=== PATIENT | female | born 1960 | race Caucasian/White ===

== ENCOUNTER 2016-04-26 14:31 | Outpatient (CLI) ==
[2016-04-26 15:16] LABS: BASOPHILS # (AUTO) 0.1 K/uL (0-0.2); EOSINOPHILS # (AUTO) 0.6 K/ul (0.0-0.7); EOSINOPHILS % (AUTO) 9.1 % (0.0-7.0); HEMATOCRIT 34.4 % (37.0-47.0); HEMOGLOBIN 11.6 g/dl (12.0-16.0); IMMATURE GRANULOCYTE % (AUTO) 0.2 % (0.0-5.0); LYMPHOCYTES % (AUTO) 32.8 (10.0-50.0); MEAN CORPUSCULAR HGB CONC 33.7 (31.8-35.4); MEAN CORPUSCULAR VOLUME 97.7 fl (81.0-99.0); MONOCYTES # (AUTO) 0.5 K/uL (0.4-2.0); MONOCYTES % (AUTO) 7.7 (0-10); NEUTROPHILS % (AUTO) 49.2; PLATELET COUNT 281 10^3/uL (140-440); RED BLOOD COUNT 3.52 10^6/ul (4.20-5.40); WHITE BLOOD COUNT 6.13 K/ul (4.6-10.2)
[2016-04-26 15:37] LABS: ALBUMIN 3.7 g/dL (3.4-5.0); ALBUMIN/GLOBULIN RATIO 1.19; ANION GAP 12.5; BILIRUBIN,TOTAL 0.31 mg/dL (0.00-1.20); BUN/CREATININE RATIO 14.7; CREATININE 0.68 mg/dL (0.60-1.30); POTASSIUM 4.5 mmol/L (3.5-5.10); TOTAL PROTEIN 6.8 g/dL (6.4-8.2)
--- NOTE | 2016-04-26 15:39 | US ---
EXAM: Ultrasound right upper quadrant HISTORY: Right upper quadrant pain COMPARISON: 08/17/2010 TECHNIQUE: Limited ultrasound abdomen right upper quadrant was performed FINDINGS: Visualized portion pancreas appears normal. Portions of the pancreas obscured secondary bowel gas shadowing. Liver normal in size and echogenicity. Main portal vein patent with normal di rection of flow. Small gallbladder polyp and/or adherent sludge measuring 4 mm. There is gallblad charlette wall thickening with suggestion of pericholecystic fluid and/or edema. No visible gallstones. T echnologist reports there is a sonographic Simmons's sign. No biliary duct dilation with the common bile duct measuring 0.5 cm. Right kidney measures 10.0 cm in length without hydronephrosis. IMPRESSION: Gallbladder wall thickening with suggestion of pericholecystic fluid and/or edema. Colette hnologist reports there is a sonographic Simmons's sign. No cholelithiasis. Findings suggestive of acalculous cholecystitis. Small gallbladder polyp and/or adherent sludge suggested.
== END 2016-04-26 14:32 | disposition home or self-care (01) ==
LOC: RAD 14:31
PROVIDERS: ATTEND Nurse Practitioner Family
DX: R10.11 Right upper quadrant pain (principal); M54.5 Low back pain
CPT/HCPCS: 36415; 80053; 82150; 83690; 85025

== ENCOUNTER 2016-10-04 12:46 | Outpatient (CLI) ==
[2016-10-04 13:07] LABS: BASOPHILS # (AUTO) 0.1 K/uL (0-0.2); BASOPHILS % (AUTO) 1.7 % (0.0-3.0); EOSINOPHILS # (AUTO) 0.5 K/ul (0.0-0.7); EOSINOPHILS % (AUTO) 12.1 % (0.0-7.0); HEMATOCRIT 34.5 % (37.0-47.0); HEMOGLOBIN 11.9 g/dl (12.0-16.0); LYMPHOCYTES # (AUTO) 2.3 K/uL (0.60-3.4); LYMPHOCYTES % (AUTO) 55.5 (10.0-50.0); MEAN CORPUSCULAR HEMOGLOBIN 33.1 pg (27.0-31.0); MEAN CORPUSCULAR HGB CONC 34.5 (31.8-35.4); MEAN CORPUSCULAR VOLUME 96.1 fl (81.0-99.0); MONOCYTES # (AUTO) 0.7 K/uL (0.4-2.0); MONOCYTES % (AUTO) 16.4 (0-10); NEUTROPHILS # (AUTO) 0.6 K/ul (2.0-6.9); NEUTROPHILS % (AUTO) 14.3; PLATELET COUNT 299 10^3/uL (140-440); RED BLOOD COUNT 3.59 10^6/ul (4.20-5.40)
[2016-10-04 13:42] LABS: ALBUMIN 3.6 g/dL (3.4-5.0); ALBUMIN/GLOBULIN RATIO 1.24; ANION GAP 13.2; BILIRUBIN,TOTAL 0.27 mg/dL (0.00-1.20); BUN/CREATININE RATIO 14.92; CALCIUM 9.1 mg/dL (8.2-10.2); CHOL/HDL RATIO 2.2 (4.5-5.5); CREATININE 0.67 mg/dL (0.60-1.30); POTASSIUM 4.2 mmol/L (3.5-5.10); TOTAL PROTEIN 6.5 g/dL (6.4-8.2)
== END 2016-10-04 12:47 | disposition home or self-care (01) ==
LOC: LAB 12:46
PROVIDERS: ATTEND Nurse Practitioner Family
DX: E78.5 Hyperlipidemia, unspecified (principal); I10 Essential (primary) hypertension
CPT/HCPCS: 36415; 80053; 80061; 84443; 85025

== ENCOUNTER 2016-11-14 15:24 | Outpatient (CLI) ==
[2016-11-14 15:32] LABS: BASOPHILS # (AUTO) 0.1 K/uL (0-0.2); BASOPHILS % (AUTO) 1.3 % (0.0-3.0); EOSINOPHILS # (AUTO) 0.6 K/ul (0.0-0.7); EOSINOPHILS % (AUTO) 10.2 % (0.0-7.0); HEMATOCRIT 38.5 % (37.0-47.0); IMMATURE GRANULOCYTE % (AUTO) 0.3 % (0.0-5.0); IMMATURE RETIC FRACTION 9.1; LYMPHOCYTES % (AUTO) 31.7 (10.0-50.0); MEAN CORPUSCULAR HEMOGLOBIN 33.2 pg (27.0-31.0); MEAN CORPUSCULAR HGB CONC 33.8 (31.8-35.4); MEAN CORPUSCULAR VOLUME 98.5 fl (81.0-99.0); MONOCYTES # (AUTO) 0.5 K/uL (0.4-2.0); MONOCYTES % (AUTO) 8.1 (0-10); NEUTROPHILS % (AUTO) 48.4; PLATELET COUNT 339 10^3/uL (140-440); RED BLOOD COUNT 3.91 10^6/ul (4.20-5.40); RETICULOCYTE % 1.55 %; WHITE BLOOD COUNT 6.15 K/ul (4.6-10.2)
[2016-11-14 16:26] LABS: FERRITIN 155.76 ng/mL (4.63-204.00); FOLATE > 20.0 ng/mL (3.1-20.5); IRON 122 ug/dL (50-170); TOTAL IRON BINDING CAPACITY 326 ug/dL (240-450)
== END 2016-11-14 15:25 | disposition home or self-care (01) ==
LOC: LAB 15:24
PROVIDERS: ATTEND Nurse Practitioner Family
DX: R89.9 Unspecified abnormal finding in specimens from other organs, systems and tissues (principal); Z86.2 Personal history of diseases of the blood and blood-forming organs and certain disorders involving the immune mechanism
CPT/HCPCS: 36415; 82607; 82728; 82746; 83540; 83550; 84466; 85025; 85045

== ENCOUNTER 2017-03-23 14:13 | Outpatient (CLI) ==
--- NOTE | 2017-03-23 14:40 | DI ---
EXAM: Three views of the lumbar spine. History: Lower back trauma. Comparison: Lumbar spine radiograph 04/26/2016 Findings: Cholecystectomy clips. Atherosclerotic vascular calcifications. No change in the nonspec ific left pelvic calcification. No acute fracture. Minimal 2 mm anterolisthesis of L4 on L5 not sig nificantly changed compared to the prior study. No significant interval change in the multilevel deg enerative disc space narrowing which is moderate at T12-L1 and mild to moderate elsewhere. Impression: 1. No acute osseous abnormality of the lumbar spine. 2. Minimal anterolisthesis of L4 on L5. 3. Degenerative disc disease.
--- NOTE | 2017-03-23 14:49 | DI ---
EXAM: Three views of the sacrum and coccyx HISTORY: Fall. COMPARISON: Lumbar spine x-rays same day FINDINGS: The sacrum is unremarkable. There is no cortical disruption identified. Lateral view demo nstrates mild angulation of the coccyx with no definitive fracture. Soft tissues are unremarkable. IMPRESSION: No acute abnormality or displaced fracture of the sacrum or coccyx.
== END 2017-03-23 14:14 | disposition home or self-care (01) ==
LOC: RAD 14:13
PROVIDERS: ATTEND Nurse Practitioner Family
DX: S39.92XA Unspecified injury of lower back, initial encounter (principal); M54.41 Lumbago with sciatica, right side; W19.XXXA Unspecified fall, initial encounter

== ENCOUNTER 2017-04-07 14:06 | Outpatient (CLI) | END 2017-04-07 14:07 | disposition home or self-care (01) | LOC: RHC-LAB 14:06 | PROVIDERS: ATTEND Nurse Practitioner Family | DX: E78.5 Hyperlipidemia, unspecified (principal); I10 Essential (primary) hypertension | CPT/HCPCS: 36415; 80053; 80061; 85025 ==

== ENCOUNTER 2017-04-10 11:59 | Outpatient (CLI) ==
--- NOTE | 2017-04-10 16:26 | MRI ---
EXAM: Lumbar spine MRI without contrast. HISTORY: Back pain. COMPARISON: Lumbar spine radiographs 03/23/2017. TECHNIQUE: Multiplanar, multisequence MR images were acquired of the lumbar spine without contrast. FINDINGS: Conus medullaris ends at L1 and has normal signal intensity. 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 Five non-rib bearing lumbar vertebra are present. There is mild thoracolumbar scoliosis, convex left at L1-2 and convex right at L3-4. There is a trac e retrolisthesis of L1 on L2, 1.5 mm retrolisthesis of L2 on L3 and L3 on L4, 1.5 mm anterolisthesis of L4 on L5 and 2 mm retrolisthesis of L5 on S1. The superior plate of S1 is smaller than the inferi or endplate of L5. The lumbar vertebra are normal in height and intrinsic bone marrow signal. There is ventral spondylosis with reactive bright STIR signal edema along the anterior endplates at T12-L1 and mild moderate disc space narrowing that is greatest anteriorly with endplate irregularities and s mall chronic Schmorl's nodes. Ventral spondylosis is present in the lumbar spine and there is modera te disc space narrowing and mild endplate irregularity at L2-3 with minor modic type 2 endplate yanez es. There is mild to moderate disc space narrowing at L3-4 that is greatest posteriorly and left lat erally and mild left lateral disc space narrowing at L4-5. The partially visualized liver, spleen and both kidneys are unremarkable. T11-12: There is a minor spondylotic disc bulge and a moderate left paracentral disc extrusion that indents the left anterior thoracic cord which is displaced slightly posteriorly and to the right with out edema. There is mild central canal stenosis. T12-L1: There is a mild spondylotic disc bulge and and a large central and bilateral paracentral dis c extrusion with 1.2 cm proximal migration. This causes mild central canal stenosis. AP diameter of the thecal sac is 9.3 mm. L1-2: There is a small posterior disc bulge without central canal stenosis and mild bilateral facet arthropathy and ligamentum flavum hypertrophy. L2-3: There is a mild diffuse spondylotic disc bulge and mild bilateral facet and ligamentum flavum hypertrophy. There is mild central canal stenosis and minor bilateral foraminal stenosis, greater on the left. AP diameter of the thecal sac is 8.4 mm. L3-4: There is a minor diffuse disc bulge and moderate superimposed broad-based central disc protrus ion that extends from the left lateral recess to the right lateral recess. This effaces the ventral thecal sac. Mild bilateral hypertrophic facet arthropathy and ligamentum flavum hypertrophy is prese nt and there is a tiny left facet effusion. Prominent dorsal epidural fat is noted and there is mild central canal stenosis and mild left neural foraminal stenosis. AP diameter of the thecal sac is 8. 7 mm. L4-5: There is anterolisthesis of L4 on L5 and there is a diffuse disc bulge and moderate bilateral hypertrophic facet arthropathy and ligamentum flavum hypertrophy with moderate left and small right f acet effusions and a 3.5 mm AP by 6.2 mm TX by 9 mm cc synovial cyst along the anteromedial right fac et joint. This effaces the right lateral recess and posterolateral thecal sac bilaterally. There is mildly prominent dorsal epidural fat. These findings cause mild to moderate central canal stenosis and mild left and minor right foraminal stenosis. AP diameter of the thecal sac is 6.8 mm. There is faint mild bright STIR signal edema around both facet joints and there are small synovial cysts mohini g the posterior inferior L4-5 facet joints bilaterally. These findings raise the possibility of a fa cet arthropathy or increased stress. L5-S1: There is retrolisthesis of L5 and on S1. There is a minor posterior disc bulge without centr al canal stenosis. Mild right and minor left facet arthropathy and mild ligamentum flavum hypertroph y is present without foraminal stenosis. IMPRESSION: 1. Mild to moderate lower thoracic lumbar degenerative spondylosis with mild L2-3 and L3-4 and mild to moderate L4-5 central canal stenosis. 2. Mild thoracolumbar scoliosis, convex left at L1-2 and convex right and L3-4. 3. Moderate left paracentral disc extrusion T11-12 that indents the left cord without edema and caus es mild spinal stenosis. 4. Moderate broad-based central disc protrusion L3-4. 5. 1.5 mm degenerative anterolisthesis L4 on L5 due to moderate hypertrophic facet arthropathy with moderate left and small right facet effusions and faint bright STIR signal edema. This may be due to an underlying inflammatory arthritis or increased stress.
== END 2017-04-10 12:00 | disposition home or self-care (01) ==
LOC: RAD 11:59
PROVIDERS: ATTEND Nurse Practitioner Family
DX: M54.9 Dorsalgia, unspecified (principal); G89.29 Other chronic pain; Z91.81 History of falling

== ENCOUNTER 2017-05-12 11:55 | Outpatient (CLI) | END 2017-05-12 11:56 | disposition home or self-care (01) | LOC: RHC-LAB 11:55 | PROVIDERS: ATTEND Nurse Practitioner Family | DX: R51 Headache (principal); H10.9 Unspecified conjunctivitis | CPT/HCPCS: 36415; 80053; 85025; 85651 ==

== ENCOUNTER 2017-09-22 13:06 | Outpatient (CLI) | END 2017-09-22 13:07 | disposition home or self-care (01) | LOC: RHC-LAB 13:06 | PROVIDERS: ATTEND Nurse Practitioner Family | DX: S81.801D Unspecified open wound, right lower leg, subsequent encounter (principal) | CPT/HCPCS: 87070; 87186 ==

== ENCOUNTER 2017-10-26 14:12 | Outpatient (CLI) | END 2017-10-26 14:13 | disposition home or self-care (01) | LOC: FCC-LAB 14:12 | PROVIDERS: ATTEND Family Medicine | DX: R74.8 Abnormal levels of other serum enzymes (principal); E78.5 Hyperlipidemia, unspecified | CPT/HCPCS: 36415; 80074 ==

== ENCOUNTER 2020-11-12 08:29 | Inpatient (IN) ==
[2020-11-12 08:35] VITALS: BMI 23.1
--- NOTE | 2020-11-12 08:57 | ED.PDOC ---
General ED Provider: Dr. LILIANA LACKEY Chief Complaint: Respiratory Complaint Stated Complaint: Cough, congestion, dyspnea, body aches, myalgias, arthralgias and headache -onset 3 days; Exposed to COVID 5 days ago. Undergoing Chemo tx for lung malignancy Dr Espino at [facility] cancer tx Time Seen by Provider: 11/12/20 08:55 Mode of Arrival: Wheelchair Information Source: Patient Exam Limitations: No limitations Primary Care Provider: PERLA OLIVERA APRN Nursing and Triage Documentation Reviewed and Agree: Yes Does patient meet sepsis criteria?: No System Inflammatory Response Syndrome: Not Applicable Sepsis Protocol: For patient's 13 years and over: Temp is 96.8 and below OR 101 and greater Pulse >90 BPM Resp >20/minute Acutely Altered Mental Status Are patient's symptoms suggestive of a new infection, such as: -Pneumonia -Skin, Soft Tissue -Endocarditis -UTI -Bone, Joint Infection -Implantable Device -Acute Abdominal Infection -Wound Infection -Meningitis -Blood Stream Catheter Infection -Unknown Respiratory Complaint Exam Shortness of Air Complaint/Exam Onset/Duration: 2 days Symptoms Are: Still present and Worse Timing: Intermittent Initial Severity: Moderate Current Severity: Moderate Character: Reports Dyspnea at rest and Dyspnea on exertion Aggravating: Reports Movement, Deep breaths and Recumbent position Alleviating: Reports Bronchodilators, Oxygen and Upright position Associated Signs and Symptoms: Reports Wheezing, Chest pain with cough, Chills and Nasal congestion; Denies Fever Related History: Denies Similar episode History of Healthcare-Acquired Pneumonia: No Pulmonary Embolism Risk Factors: Reports Malignancy and Bedrest Cardiac Risk Factors: Reports None Pseudomonas Risk Factors: Reports None Tuberculosis Risk Factors: Reports None Home Oxygen Use: Yes Recent Stress Test: No Recent Echo/LV Function: No Respiratory Distress: None Stridor Present: No Tracheal Deviation: No Subcutaneous Emphysema: No Accessory Muscle Use: No Retractions: Not Present Diminished Breath Sounds: Yes Prolonged Expiratory Phase: No Unable to Speak Full Sentences: Yes Fatigue: Yes Leg Swelling: No Yolie's Sign Present: No Grunting Respirations: No Differential Diagnoses: Chest Wall Pain, COPD Exacerbation, Pneumonia, Pulmonary Embolism and SARS Quality Indicator For Non-Traumatic Chest Pain/Syncope: EKG Performed Quality Indicators For Pneumonia/CAP: Blood Cultures-SCU admit, Antibiotics in 6hr-admit, SpO2 assessed, Empiric Antibiotic Rx, Vital signs and Mental status assessed Related Surgical History: Reports None Review of Systems Review Of Systems Constitutional: Reports Malaise and Weakness Eyes: Reports No symptoms Ears, Nose, Mouth, Throat: Reports No symptoms Respiratory: Reports Cough, Short of air and Wheezing Cardiac: Reports No symptoms GI: Reports No symptoms : Reports No symptoms Musculoskeletal: Reports No symptoms Skin: Reports No symptoms Neurological: Reports Anxiety; Denies Cognitive dysfunction, Headache, Numbness, [place] seizures or Tonic-Clonic seizures Endocrine: Reports No symptoms Hematologic/Lymphatic: Reports No symptoms All Other Systems: Reviewed and Negative [facility] Medical History Anemia Asthma Chronic obstructive pulmonary disease Defect of endplate of vertebra Depression Fatigue Folliculitis Gall bladder disease Hyperlipidemia Hypertension Hypothyroidism Influenza vaccination administered at current visit Lung cancer Nausea and vomiting Need for vaccination against Streptococcus pneumoniae using pneumococcal conjugate vaccine 13 On antineoplastic chemotherapy Osteoporosis Stage 4 lung cancer Family History (Updated 11/12/20 @ 16:14 by MCKINLEY SAAB RN) Other No known health problems Social History Smoking and tobacco status: Former smoker Tobacco: How many years used: 17 Second hand smoke exposure: Yes Alcohol intake: current Substance use type: does not use Eliza/bahai: voodoo Special eliza needs: No Agree to transfusion: Yes Adopted: No Caregiver/support person: Yes Household members: spouse Housing: house Lives independently: Yes Highest education level completed: 9th grade Financial difficulty paying for basics: not applicable service: No Current occupational status: unemployed Current occupational exposures/hazards: No Pets and animals: No Leisure activites: fishing History of recent travel: No Do you think of yourself as: straight/heterosexual Current gender identity: female Seatbelt use: always Helmet use: No Drives intoxicated or rides with intoxicated patrol driver: No Water heater temperature set < 120 degrees: Yes Working smoke detector in home: Yes Fire extinguisher in home: Yes Carbon monoxide detector in home: No Firearms in home: Yes Firearms unloaded and locked: Yes Surgical History gall bladder History of tubal ligation Status post appendectomy Status post cholecystectomy (04/27/16) Female Reproductive History Menstrual Hx Hysterectomy: No Hx Tubal Ligation: No Physical Exam Physical Exam Appearance: Reports Ill-appearing and Thin Ill-appearing: Moderate Pain Distress: Moderate Eyes: Reports MILLA, EOMI, Conjunctiva clear and Conjunctiva pale ENT: Reports Ears normal, Nose normal and Oropharynx normal Neck: Supple Respiratory: Reports Airway patent, Breath sounds diminished, Rhonchi and Wheezes Cardiovascular: Reports RRR, Pulses normal, No rub and No murmur GI/: Reports Soft, Nontender, No masses, Bowel sounds normal, No Organomegaly and Tender Musculoskeletal: Reports Normal strength, ROM intact, No edema and No calf tenderness Skin: Reports Warm, Dry and Normal color Neurological: Reports Sensation intact, Motor intact, Cranial nerves intact, Alert and Oriented Psychiatric: Reports Affect appropriate and Anxious Interpretation Radiology Interpretation Radiology Interpretation By: Radiologist Exam Interpreted: Portable CXR ( Tiny left pleural effusion. No definite consolidated pneumonia. If symptoms persist, consider follow up with full inspiration, standing two-view chest radiography using PA and lateral technique.) and CT Scan (New scattered and worsening patchy ground-glass opacities and both lungs. The left upper lobe ground-glass pulmonary nodule may be postinflammatory, but follow-up CT in 3-6 months is recommended. 2. Unchanged medial left upper lobe mass. 3. Unchanged emphysema.) EKG Interpretation Time of EKG #1: 09:18 Rate: Normal Rhythm: Sinus Ectopy: None ST Segment: Other (Non specf ST-T WAVE CHANGES) Interpretation: NO ACUTE FINDINGS Physician Notification Case Discussed Physician Notified: Dr Maty Lilly(out of town-call professional nursing tutor physician Time of Notification: 12:33 Physician Notified: Dr Buck Cnao( available at 2:22 Pm) Time of Notification: 12:59 Comments: No need to worry about ANC unless Septic. Discussed tx plan of admission Definitive tx(Remdesivir, Steroids, etc) Call back if additional iform needed Critical Care Note Critical Care Note Total Critical Care Time (mins): 60 Course Course Hematology/Chemistry: 11/12/20 08:20 11/12/20 08:20 Orders, Labs, Meds: Lab Review 11/12/20 11/12/20 11/12/20 08:20 08:20 08:20 WBC 1.51 L* RBC 3.77 L Hgb 12.3 Hct 36.8 L MCV 97.6 MCH 32.6 H MCHC 33.4 RDW Coeff of Atylor 12.0 Plt Count 150 Neutrophils % (Manual) 26.0 L Band Neutrophils % 2.0 Lymphocytes % (Manual) 62.0 H Monocytes % (Manual) 10.0 Anisocytosis Not Reportable Puncture Site Base Excess O2 Saturation ABG pH ABG pCO2 ABG pO2 ABG HCO3 ABG Total CO2 William Test Hemoglobin Oxyhemoglobin Carboxyhemoglobin Total Hemoglobin O2 Delivery Device Oxygen Liter Flow FiO2 % Sodium 131.6 L Potassium 3.77 Chloride 98.2 Carbon Dioxide 23.0 Anion Gap 14.17 BUN 20.0 H Creatinine 0.75 Estimated GFR (MDRD) 79.00 BUN/Creatinine Ratio 26.66 Glucose 138.0 H Lactic Acid Calcium 8.61 Magnesium 1.82 Total Bilirubin 0.46 AST 68.5 H ALT 45.6 H Alkaline Phosphatase 89.1 Total Protein 7.09 Albumin 4.06 Globulin 3.03 Albumin/Globulin Ratio 1.33 Lipase 171.3 Procalcitonin D-Dimer 1188.37 H Urine Color Urine Clarity Urine pH Ur Specific Unity Urine Protein Urine Glucose (UA) Urine Ketones Urine Blood Urine Nitrite Urine Bilirubin Urine Urobilinogen Ur Leukocyte Esterase Urine Microscopic RBC Urine Microscopic WBC Ur Squamous Epith Cells Ur Renal Epithelial Cell Urine Bacteria Adenovirus (PCR) B. pertussis DNA (PCR) B.parapertussis DNA PCR C. pneumoniae DNA (PCR) Coronavirus OC43 (PCR) Coronavirus HKU1 (PCR) Coronavirus 229E (PCR) Coronavirus NL63 (PCR) Human Metapneumovir PCR Influenza Type A (PCR) Influenza B (RT-PCR) M. pneumoniae (PCR) Parainfluenza 1 (PCR) Parainfluenza 2 (PCR) Parainfluenza 3 (PCR) Parainfluenza 4 (PCR) RSV (PCR) Entero/Rhino (PCR) SARS-CoV-2 (PCR) 11/12/20 11/12/20 11/12/20 08:20 08:20 09:28 WBC RBC Hgb Hct MCV MCH MCHC RDW Coeff of Taylor Plt Count Neutrophils % (Manual) Band Neutrophils % Lymphocytes % (Manual) Monocytes % (Manual) Anisocytosis Puncture Site Base Excess O2 Saturation ABG pH ABG pCO2 ABG pO2 ABG HCO3 ABG Total CO2 William Test Hemoglobin Oxyhemoglobin Carboxyhemoglobin Total Hemoglobin O2 Delivery Device Oxygen Liter Flow FiO2 % Sodium Potassium Chloride Carbon Dioxide Anion Gap BUN Creatinine Estimated GFR (MDRD) BUN/Creatinine Ratio Glucose Lactic Acid 1.41 Calcium Magnesium Total Bilirubin AST ALT Alkaline Phosphatase Total Protein Albumin Globulin Albumin/Globulin Ratio Lipase Procalcitonin < 0.05 D-Dimer Urine Color Urine Clarity Urine pH Ur Specific Unity Urine Protein Urine Glucose (UA) Urine Ketones Urine Blood Urine Nitrite Urine Bilirubin Urine Urobilinogen Ur Leukocyte Esterase Urine Microscopic RBC Urine Microscopic WBC Ur Squamous Epith Cells Ur Renal Epithelial Cell Urine Bacteria Adenovirus (PCR) Not detected B. pertussis DNA (PCR) Not detected B.parapertussis DNA PCR Not detected C. pneumoniae DNA (PCR) Not detected Coronavirus OC43 (PCR) Not detected Coronavirus HKU1 (PCR) Not detected Coronavirus 229E (PCR) Not detected Coronavirus NL63 (PCR) Not detected Human Metapneumovir PCR Not detected Influenza Type A (PCR) Not detected Influenza B (RT-PCR) Not detected M. pneumoniae (PCR) Not detected Parainfluenza 1 (PCR) Not detected Parainfluenza 2 (PCR) Not detected Parainfluenza 3 (PCR) Not detected Parainfluenza 4 (PCR) Not detected RSV (PCR) Not detected Entero/Rhino (PCR) Not detected SARS-CoV-2 (PCR) Detected H 11/12/20 11/12/20 09:38 10:29 WBC RBC Hgb Hct MCV MCH MCHC RDW Coeff of Taylor Plt Count Neutrophils % (Manual) Band Neutrophils % Lymphocytes % (Manual) Monocytes % (Manual) Anisocytosis Puncture Site Rrad Base Excess -1.2 O2 Saturation 95.7 ABG pH 7.48 H ABG pCO2 30.0 L ABG pO2 74.0 L ABG HCO3 22.3 ABG Total CO2 23.2 William Test + Hemoglobin 0.8 Oxyhemoglobin 95.2 Carboxyhemoglobin 1.5 Total Hemoglobin 11.5 L O2 Delivery Device Cannula Oxygen Liter Flow 2.00 FiO2 % 28.0 Sodium Potassium Chloride Carbon Dioxide Anion Gap BUN Creatinine Estimated GFR (MDRD) BUN/Creatinine Ratio Glucose Lactic Acid Calcium Magnesium Total Bilirubin AST ALT Alkaline Phosphatase Total Protein Albumin Globulin Albumin/Globulin Ratio Lipase Procalcitonin D-Dimer Urine Color Yellow Urine Clarity Clear Urine pH 7.0 Ur Specific Unity 1.015 Urine Protein 1+ H Urine Glucose (UA) Negative Urine Ketones Negative Urine Blood Trace-intact H Urine Nitrite Negative Urine Bilirubin Negative Urine Urobilinogen 0.2 Ur Leukocyte Esterase Trace H Urine Microscopic RBC 0-2 Urine Microscopic WBC 2-5 Ur Squamous Epith Cells 2-5 Ur Renal Epithelial Cell 2-5 Urine Bacteria 1+ Adenovirus (PCR) B. pertussis DNA (PCR) B.parapertussis DNA PCR C. pneumoniae DNA (PCR) Coronavirus OC43 (PCR) Coronavirus HKU1 (PCR) Coronavirus 229E (PCR) Coronavirus NL63 (PCR) Human Metapneumovir PCR Influenza Type A (PCR) Influenza B (RT-PCR) M. pneumoniae (PCR) Parainfluenza 1 (PCR) Parainfluenza 2 (PCR) Parainfluenza 3 (PCR) Parainfluenza 4 (PCR) RSV (PCR) Entero/Rhino (PCR) SARS-CoV-2 (PCR) Orders Category Date Time Status ABG DRAW REQUEST Stat CARDIO 11/12/20 08:57 Completed EKG-(ED ONLY) Stat CARDIO 11/12/20 08:58 Completed METERED DOSE INHALATION Routine CARDIO 11/12/20 10:08 Completed OXYGEN Routine CARDIO 11/12/20 08:58 Active NPO REMINDER: IMAGING ONCE CARE 11/12/20 11:21 Active IV [ED IV/MEDIPORT/POWERPORT] .ONCE EMERGENCY 11/12/20 08:58 Active ABG COOX Stat LAB 11/12/20 09:38 Completed BLOOD CULTURE (ED ONLY) Stat LAB 11/12/20 09:28 Received CBC W/ AUTO DIFF Stat LAB 11/12/20 08:20 Completed CMP [COMPREHENSIVE METABOLIC PANEL] Stat LAB 11/12/20 08:20 Completed D-DIMER Stat LAB 11/12/20 08:20 Completed HEPATITIS PANEL, ACUTE Stat LAB 11/12/20 08:20 Received LACTIC ACID Stat LAB 11/12/20 09:28 Completed LIPASE Stat LAB 11/12/20 08:20 Completed MAGNESIUM Stat LAB 11/12/20 08:20 Completed MANUAL DIFFERENTIAL Stat LAB 11/12/20 08:20 Completed PROCALCITONIN Stat LAB 11/12/20 08:20 Completed RESPIRATORY PANEL 2.1 (PCR) Stat LAB 11/12/20 08:20 Completed SPUTUM CULTURE Stat LAB 11/12/20 09:00 Uncollected UA [URINALYSIS C & S IF INDICATED] Stat LAB 11/12/20 10:29 Completed URINE CULTURE Stat LAB 11/12/20 10:29 Received 0.9 % Sodium Chloride [Saline Flush] MEDS 11/12/20 08:57 Active 1 syr IVF PRN PRN Acetaminophen [Tylenol] MEDS 11/12/20 11:29 Discontinued 650 mg PO ONCE STA Albuterol Inhaler(with Spacer) [Ventolin Hfa (Per Puff- MEDS 11/12/20 10:08 Discontinued with Spacer)] 2 puff IH ONCE ONE Sodium Chloride 0.9% [Sodium Chloride] 1,000 ml MEDS 11/12/20 09:01 Discontinued IV BOLUS CHEST, 1V AP ONLY Stat RADS 11/12/20 08:[address] CHEST PE PROTOCOL Stat RADS 11/12/20 11:21 Completed Medications Generic Name Dose Route Start Last Admin Trade Name Freq PRN Reason Stop Dose Admin Acetaminophen 650 mg 11/12/20 16:22 11/12/20 16:47 Acetaminophen 325 Mg Tablet PO 650 mg Q4H PRN Administration Headache Albuterol Sulfate 2 puff 11/12/20 20:00 Albuterol Sulfate (Ventolin Hfa) 18 Gm 1 Puff With Spacer IH RTTID CAROLA Alprazolam 0.5 mg 11/12/20 16:04 Alprazolam 0.5 Mg Tablet PO BEDTIME PRN ANXIETY Amlodipine Besylate 10 mg 11/13/20 09:00 Amlodipine Besylate 5 Mg Tablet PO DAILY CAROLA Atropine Sulfate 0.5 mg 11/12/20 16:22 Atropine Sulfate Inj 1 Mg/10 Ml Disp.Syrin IVP ONCE PRN Symptomatic Bradycardia Azithromycin 500 mg 11/12/20 17:00 11/12/20 18:06 Azithromycin 250 Mg Tablet PO 11/15/20 16:59 500 mg DAILY CAROLA Administration Benazepril HCl 40 mg 11/13/20 09:00 Benazepril Hcl 10 Mg Tablet PO DAILY [facility] Budesonide/Formoterol Fumarate 2 puff 11/12/20 21:00 Budesonide/Formoterol Fumarate 160/4.5 Mcg Inhaler IH BID [facility]OL[facility] Cholecalciferol 5,000 unit 11/12/20 15:00 11/12/20 15:16 Cholecalciferol (Vitamin D3) 1,000 Unit (25 Mcg) Tablet PO 5,000 unit DAILY CAROLA Administration Dexamethasone Sodium Phosphate 6 mg 11/13/20 09:00 Dexamethasone Sod Phos 10 Mg/Ml Inj IVP DAILY [facility] Famotidine 40 mg 11/12/20 17:00 11/12/20 16:37 Famotidine 20 Mg Tablet PO 40 mg BIDAC CAROLA Administration Ferrous Sulfate 324 mg 11/12/20 21:00 Ferrous Sulfate 324 Mg Tablet.Dr PO BID [facility] Folic Acid 1 mg 11/13/20 09:00 Folic Acid 1 Mg Tablet PO DAILY [facility] Hydroxyzine HCl 25 mg 11/12/20 16:04 Hydroxyzine Hcl 25 Mg Tablet PO QID PRN ITCHING REMDESIVIR SOLUTION 100 mg/ 270 mls @ 270 mls/hr 11/13/20 12:00 Sodium Chloride IV 11/16/20 14:00 DAILY@1200 [facility] CEFTRIAXONE/D5W 1 GM PREMIX 1 gm in 50 mls @ 75 mls/hr 11/12/20 17:00 11/12/20 17:12 Rocephin 1 Gm/50 Ml D5w IV 11/15/20 16:59 75 mls/hr DAILY [facility] Administration Loratadine 10 mg 11/12/20 21:00 Loratadine 10 Mg Tablet PO BEDTIME [facility] Metoprolol Succinate 50 mg 11/12/20 21:00 Metoprolol Succinate 50 Mg Tab.Er.24h PO BID [facility] Multivitamins 1 tab 11/13/20 09:00 Multivitamin 1 Tab PO DAILY [facility] Nitroglycerin 0.4 mg 11/12/20 16:22 Nitroglycerin 0.4 Mg Tab.Subl SL Q5MIN X 3 DOSES PRN Chest Pain Pravastatin Sodium 40 mg 11/13/20 09:00 Pravastatin Sodium 40 Mg Tablet PO DAILY [facility] Prochlorperazine Maleate 10 mg 11/12/20 16:04 11/12/20 16:37 Prochlorperazine Maleate 10 Mg Tablet PO 10 mg Q6H PRN Administration DIZZINESS/NAUSEA Sodium Chloride 1 syr 11/12/20 08:57 11/12/20 09:06 0.9% Sodium Chloride 10 Ml Disp.Syrin IVF 1 syr PRN PRN Administration To flush IV Sodium Chloride 1 syr 11/12/20 21:00 0.9% Sodium Chloride 10 Ml Disp.Syrin IVF Q8HR [facility] Triamcinolone Acetonide 1 applic 11/13/20 09:00 Triamcinolone Acetonide 80 Gm Cream TP DAILY [facility] Venlafaxine HCl 75 mg 10/01/21 09:00 Venlafaxine Hcl 75 Mg Cap.Er.24h PO DAILY [facility] Zinc Sulfate 220 mg 11/12/20 14:45 11/12/20 15:17 Zinc Sulfate 220 Mg Capsule PO 220 mg DAILY [facility] Administration Discontinued Medications Generic Name Dose Route Start Last Admin Trade Name Phuq PRN Reason Stop Dose Admin Acetaminophen 650 mg 11/12/20 11:29 11/12/20 11:34 Acetaminophen 325 Mg Tablet PO 11/12/20 11:30 650 mg ONCE STA Administration Albuterol Sulfate 2 puff 11/12/20 10:08 11/12/20 10:16 Albuterol Sulfate (Ventolin Hfa) 18 Gm 1 Puff With Spacer IH 11/12/20 10:09 2 puff ONCE ONE Administration Albuterol Sulfate 2 puff 11/12/20 15:00 Albuterol Sulfate (Ventolin Hfa) 18 Gm 1 Puff With Spacer IH TID [facility] Sodium Chloride 1,000 mls @ 1,000 mls/hr 11/12/20 09:01 11/12/20 09:05 Sodium Chloride IV 11/12/20 10:00 1,000 mls/hr BOLUS STA Administration REMDESIVIR SOLUTION 200 mg/ 290 mls @ 145 mls/hr 11/12/20 14:42 11/12/20 18:05 Sodium Chloride IV 11/12/20 16:41 145 mls/hr ONCE ONE Administration Venlafaxine HCl 75 mg 11/14/20 09:00 Venlafaxine Hcl 75 Mg Cap.Er.24h PO EVERY OTHER DAY [facility] Vital Signs: Temp Pulse Resp BP Pulse Ox 11/12/20 12:31 108 H 20 166/98 H 98 11/12/20 09:41 100.3 F H 111 H 20 179/94 H 95 11/12/20 09:24 111 H 98 11/12/20 08:36 100.7 F H 11/12/20 08:30 100.6 F H 116 H 24 168/116 H 96 Discharge Plan Discharge Patient Disposition: ADMITTED INPATIENT Discharge Problem: Stage 4 malignant neoplasm of lung, COVID-19 ED Provider: LILIANA LACKEY Condition: Stable Physician Progress Note: []
[2020-11-12] MEDS ORDERED: SODIUM CHLORIDE 1,000 ML IV STA (09:01)
[2020-11-12 09:11] LABS: BORDETELLA PARAPERTUSSIS (PCR) NOT DETECTED (NOT DETECT); BORDETELLA PERTUSSIS (PCR) NOT DETECTED (NOT DETECT); CHLAMYDIA PNEUMONIAE (PCR) NOT DETECTED (NOT DETECT); CORONAVIRUS 229E (PCR) NOT DETECTED (NOT DETECT); CORONAVIRUS HKU1 (PCR) NOT DETECTED (NOT DETECT); CORONAVIRUS NL63 (PCR) NOT DETECTED (NOT DETECT); CORONAVIRUS OC43 (PCR) NOT DETECTED (NOT DETECT); HUMAN METAPNEUMOVIRUS (PCR) NOT DETECTED (NOT DETECT); HUMAN RHINOVIRUS/ENTEROV (PCR) NOT DETECTED (NOT DETECT); INFLUENZA B (PCR) NOT DETECTED (NOT DETECT); MYCOPLASMA PNEUMONIAE (PCR) NOT DETECTED (NOT DETECT); PARAINFLUENZA VIRUS 1 (PCR) NOT DETECTED (NOT DETECT); PARAINFLUENZA VIRUS 2 (PCR) NOT DETECTED (NOT DETECT); PARAINFLUENZA VIRUS 3 (PCR) NOT DETECTED (NOT DETECT); PARAINFLUENZA VIRUS 4 (PCR) NOT DETECTED (NOT DETECT); RESPIRATORY SYNCYTIAL V (PCR) NOT DETECTED (NOT DETECT)
[2020-11-12 09:16] LABS: HEMATOCRIT 36.8 % (37.0-47.0); HEMOGLOBIN 12.3 g/dl (12.0-16.0); MEAN CORPUSCULAR HEMOGLOBIN 32.6 pg (27.0-31.0); MEAN CORPUSCULAR HGB CONC 33.4 (31.8-35.4); MEAN CORPUSCULAR VOLUME 97.6 fl (81.0-99.0); PLATELET COUNT 150 10^3/uL (140-440); RED BLOOD COUNT 3.77 10^6/ul (4.20-5.40)
[2020-11-12 09:19] LABS: ALANINE AMINOTRANSFERASE 45.6 U/L (0-35); ALBUMIN 4.06 g/dL (3.5-5.0); ALKALINE PHOSPHATASE 89.1 U/L (53-141); ASPARTATE AMINO TRANSFERASE 68.5 U/L (14-36); BILIRUBIN,TOTAL 0.46 mg/dL (0.2-1.3); CALCIUM 8.61 mg/dL (8.4-10.2); CHLORIDE 98.2 mmol/L (98-107); CREATININE 0.75 mg/dL (0.60-1.30); LIPASE 171.3 U/L (23-300); MAGNESIUM 1.82 mg/dL (1.6-2.3); POTASSIUM 3.77 mmol/L (3.5-5.1); SODIUM 131.6 mmol/L (134.5-145); TOTAL PROTEIN 7.09 g/dL (6.3-8.2)
[2020-11-12 09:57] LABS: WHITE BLOOD COUNT 1.51 K/ul (4.6-10.2)
[2020-11-12 09:59] LABS: ABG O2 HGB 95.2 % (95-100); ABG PH 7.48 (7.35-7.45); BEecf -1.2 (-2.0-3.0); COHb 1.5 (0.5-1.5); HCO3 22.3 (21-28); MetHb 0.8 (0-1.5); TCO2 23.2 (19-24); sO2 95.7 % (94-98); tHb 11.5 g/dl (11.7-17.4)
[2020-11-12 10:00] LABS: ADENOVIRUS (PCR) NOT DETECTED (NOT DETECT)
[2020-11-12 10:02] LABS: SARS_COV_2 (PCR) DETECTED (NOT DETECT)
[2020-11-12] MEDS ORDERED: VENTOLIN HFA (PER PUFF-WITH SPACER) IH ONE (10:08)
--- NOTE | 2020-11-12 10:34 | DI ---
EXAM: CHEST FRONTAL VIEW HISTORY: Cough and congestion COMPARISON: 05/15/2019 FINDINGS: Heart size and mediastinum remain within normal limits. Interval placement of a left po rt catheter with the tip ending over the superior vena cava. There is blunting of the left costophre cande angle suggesting tiny pleural effusion, less noticeable since prior study. No definite consolida slime pneumonia or acute infiltrate. No vascular congestion or pneumothorax. IMPRESSION: 1. Tiny left pleural effusion. No definite consolidated pneumonia. If symptoms persist, consider f ollow up with full inspiration, standing two-view chest radiography using PA and lateral technique.
[2020-11-12 10:35] LABS: BILIRUBIN,URINE Negative (NEGATIVE); CLARITY,URINE Clear (CLEAR); COLOR,URINE Yellow (YELLOW); GLUCOSE, URINE (UA) Negative (NEGATIVE); KETONES,URINE Negative (NEGATIVE); LEUKOCYTE ESTERASE ,URINE Trace (NEGATIVE); NITRITE,URINE Negative (NEGATIVE); PROTEIN,URINE 1+ (NEGATIVE); URINE, BLOOD Trace-intact (NEGATIVE); UROBILINOGEN,URINE 0.2 (0.2)
[2020-11-12 10:39] LABS: BACTERIA,URINE 1+ (NOT PRESENT); URINE RBC, MICROSCOPIC 0-2 (0-2)
[2020-11-12] MEDS ORDERED: TYLENOL PO STA (11:29)
--- NOTE | 2020-11-12 12:20 | CT ---
EXAM: CTA chest for PE HISTORY: Dyspnea with history of COVID-19 COMPARISON: CT chest 09/02/2020 and multiple priors TECHNIQUE: CTA of the chest was performed from the lung apices to the upper abdomen after 100 ml of Omnipaque IV contrast was administered using PE protocol. 3-D imaging was also provided. FINDINGS: There is no filling defect in the pulmonary arteries to the level of the subsegmental pulm onary arteries. The heart is normal without signs of ventricular strain. There is atherosclerotic d isease of the aorta. The thyroid is normal. Heart demonstrates no pericardial fluid. There are whitley cified mediastinal and hilar lymph nodes. There is a mild hiatal hernia. There is no pneumothorax or effusion. There is mild to moderate emphysema. There is an irregular ar ea of consolidation/scar. Soft tissue in the medial left upper lobe on image 34 measuring 0.9 x 1.3 cm. There is unchanged nodule in the left upper lobe on image 41 measuring 0.8 x 0.4 cm. This appea rs more prominent on today's exam than on previous study. There is mild ground-glass in the lingula. There is ground-glass in the bilateral lower lobes. There is central ground-glass in the right upp er lobe on image 38. There is a 0.6 cm pulmonary nodule of ground-glass in the right lower lobe on i mage 73. There has been a prior cholecystectomy. Osseous structures are unremarkable. IMPRESSION: There is no pulmonary embolism. 1. New scattered and worsening patchy ground-glass opacities and both lungs. The left upper lobe gr ound-glass pulmonary nodule may be postinflammatory, but follow-up CT in 3-6 months is recommended. 2. Unchanged medial left upper lobe mass. 3. Unchanged emphysema. 4. Sequela of old granulomatous disease. 5. Mild hiatal hernia. All CT scans are performed using dose optimization techniques as appropriate to the performed exam an d include at least one of the following: Automated exposure control, adjustment of the mA and/or kV according t o size, and the use of iterative reconstruction technique.
[2020-11-12] MEDS ORDERED: VEKLURY 200 MG in SODIUM CHLORIDE 250 ML IV ONE (14:42)
[2020-11-12] MEDS ORDERED: VENTOLIN HFA (PER PUFF-WITH SPACER) IH SCH (15:00)
[2020-11-12] MEDS: VITAMIN D PO SCH (15:16)
[2020-11-12] MEDS: ZINC-220 PO SCH (15:17)
[2020-11-12] MEDS ORDERED: ATARAX PO PRN (16:04)
[2020-11-12] MEDS ORDERED: NON-FORMULARY MEDICATION (Triamcinolone Acetonide 0.1 % ointment) TP SCH (16:15)
[2020-11-12] MEDS ORDERED: NITROSTAT SL PRN (16:22)
[2020-11-12] MEDS ORDERED: ATROPINE SULFATE PFS IVP PRN (16:22)
[2020-11-12] MEDS: PEPCID PO SCH (16:37)
[2020-11-12] MEDS: COMPAZINE PO PRN (16:37)
[2020-11-12] MEDS: TYLENOL PO PRN (16:47)
[2020-11-12] MEDS: ROCEPHIN 1 GM/50 ML D5W 1 GM/50 ML BAG IV SCH (17:12)
[2020-11-12] MEDS: ZITHROMAX PO SCH (18:06)
[2020-11-12] MEDS: VENTOLIN HFA (PER PUFF-WITH SPACER) IH SCH (20:29)
[2020-11-12] MEDS: FERROUS SULFATE PO SCH (20:57)
[2020-11-12] MEDS: SYMBICORT 160-4.5 MCG INHALER IH SCH (20:57)
[2020-11-12] MEDS: CLARITIN PO SCH (20:57)
[2020-11-12] MEDS: TOPROL XL PO SCH (20:58)
[2020-11-12] MEDS ORDERED: SYMBICORT 160-4.5 MCG INHALER IH SCH (21:00)
[2020-11-12] MEDS ORDERED: NON-FORMULARY MEDICATION (Ferrous Sulfate [Ferosul] 325 mg (65 mg iron) tablet) PO SCH (21:00)
[2020-11-12] MEDS ORDERED: IMODIUM PO STA (21:15)
[2020-11-12] MEDS: XANAX PO PRN (22:58)
[2020-11-13 05:12] LABS: HBsAgSCREEN Negative (Negative); HEP A AB, IgM Negative (Negative); HEP B CORE Ab, IgM Negative (Negative); HEP C VIRUS AB < 0.1 s/co ratio (0.0-0.9)
[2020-11-13] MEDS: VENTOLIN HFA (PER PUFF-WITH SPACER) IH SCH ×3 (05:26→20:30)
[2020-11-13 05:32] LABS: ABG O2 HGB 92.1 % (95-100); COHb 1.9 (0.5-1.5); HCO3 26.7 (21-28); MetHb 0.8 (0-1.5); TCO2 27.7 (19-24); sO2 93.4 % (94-98); tHb 9.1 g/dl (11.7-17.4)
[2020-11-13] MEDS: PEPCID PO SCH ×2 (05:49→16:58)
[2020-11-13 05:55] LABS: ABG PH 7.53 (7.35-7.45)
[2020-11-13] MEDS: TYLENOL PO PRN (06:31)
[2020-11-13 07:27] LABS: PROTHROMBIN TIME 10.9 SEC (9.3-11.0)
[2020-11-13 08:24] LABS: HEMATOCRIT 32.7 % (37.0-47.0); HEMOGLOBIN 11.2 g/dl (12.0-16.0); MEAN CORPUSCULAR HEMOGLOBIN 32.8 pg (27.0-31.0); MEAN CORPUSCULAR HGB CONC 34.3 (31.8-35.4); MEAN CORPUSCULAR VOLUME 95.9 fl (81.0-99.0); RDW COEFFICIENT OF VARIATION 11.9 % (11.6-14.8); RED BLOOD COUNT 3.41 10^6/ul (4.20-5.40)
[2020-11-13 08:50] LABS: WHITE BLOOD COUNT 1.83 K/ul (4.6-10.2)
[2020-11-13 08:51] LABS: ANISOCYTOSIS NOT PRESENT (NOT PRESENT); PLATELET COUNT 88 10^3/uL (140-440)
[2020-11-13] MEDS: SYMBICORT 160-4.5 MCG INHALER IH SCH ×2 (09:00→20:40)
[2020-11-13] MEDS ORDERED: NON-FORMULARY MEDICATION (Multivitamin [Daily Multi-Vitamin] 1 EACH tablet) PO SCH (09:00)
--- NOTE | 2020-11-13 09:12 | PCM.PROG ---
Date Seen by Provider: 11/13/20 Time Seen by Provider: 09:09 Subjective: pt stable, O2sat 94%, hx lung cancer and mets, hx dnr Objective: Vitals: T=98 F, P=104, R=17, AK=207/86, SPO2=94 HEENT: [] Neck: [] Lungs: [] CVS: [] Abdomen: [] Extremities: [] Neurological: [] Skin: [] Lab/Tests/Diagnostic Imaging: [] Plan: continue covid protochol, care to Dr Luu at 19:00, await cta chest result for elevated ddimer, zithromax and rocephin for leukopenia
[2020-11-13 10:34] LABS: TROPONIN I 0.036 ng/ml (0.0000-0.120)
[2020-11-13] MEDS: ROCEPHIN 1 GM/50 ML D5W 1 GM/50 ML BAG IV SCH (11:07)
[2020-11-13] MEDS: ZINC-220 PO SCH (11:08)
[2020-11-13] MEDS: FERROUS SULFATE PO SCH ×2 (11:08→20:39)
[2020-11-13] MEDS: LOTENSIN PO SCH (11:08)
[2020-11-13] MEDS: EFFEXOR XR PO SCH (11:08)
[2020-11-13] MEDS: ZITHROMAX PO SCH (11:09)
[2020-11-13] MEDS: TOPROL XL PO SCH ×2 (11:09→20:39)
[2020-11-13] MEDS: NORVASC PO SCH (11:09)
[2020-11-13] MEDS: PRAVACHOL PO SCH (11:09)
[2020-11-13] MEDS: MULTIVITAMIN TABLET PO SCH (11:09)
[2020-11-13] MEDS: VITAMIN D PO SCH (11:10)
[2020-11-13] MEDS: DECADRON IVP SCH (11:10)
[2020-11-13] MEDS: FOLIC ACID PO SCH (11:10)
[2020-11-13] MEDS: COMPAZINE PO PRN (11:43)
[2020-11-13] MEDS: KENALOG 0.1% TP SCH (11:46)
[2020-11-13] MEDS: VEKLURY 100 MG in SODIUM CHLORIDE 250 ML IV SCH (12:50)
--- NOTE | 2020-11-13 14:22 | DI ---
EXAM: Single frontal view of the chest HISTORY: Cough and congestion. COMPARISON: CT chest 11/12/2020 and multiple priors FINDINGS: Cardiomediastinal silhouette is normal. There is a Port-A-Cath with the tip over the cavoa trial junction. There is no pneumothorax or effusion. The osseous structures are unremarkable. The lungs are hyperinflated. IMPRESSION: Hyperinflated lungs suggestive of chronic obstructive pulmonary disease. There is no ac [place] consolidation.
[2020-11-13] MEDS: IMODIUM PO PRN (16:59)
[2020-11-13] MEDS: CLARITIN PO SCH (20:39)
[2020-11-14 04:21] LABS: C-REACTIVE PROTEIN 145 mg/L (0-10)
[2020-11-14] MEDS: VENTOLIN HFA (PER PUFF-WITH SPACER) IH SCH ×5 (05:30→20:59)
[2020-11-14] MEDS: PEPCID PO SCH ×2 (05:32→17:33)
[2020-11-14 05:34] LABS: ABG O2 HGB 94.2 % (95-100); ABG PH 7.45 (7.35-7.45); BEecf -0.4 (-2.0-3.0); COHb 1.6 (0.5-1.5); HCO3 23.6 (21-28); MetHb 0.8 (0-1.5); TCO2 24.6 (19-24); sO2 95.5 % (94-98); tHb 12.6 g/dl (11.7-17.4)
[2020-11-14 05:42] LABS: HEMATOCRIT 37.4 % (37.0-47.0); HEMOGLOBIN 12.6 g/dl (12.0-16.0); IMMATURE GRANULOCYTE % (AUTO) 0.5 % (0.0-5.0); LYMPHOCYTES # (AUTO) 1.1 K/uL (0.60-3.4); LYMPHOCYTES % (AUTO) 52.3 (10.0-50.0); MEAN CORPUSCULAR HEMOGLOBIN 32.8 pg (27.0-31.0); MEAN CORPUSCULAR HGB CONC 33.7 (31.8-35.4); MEAN CORPUSCULAR VOLUME 97.4 fl (81.0-99.0); MONOCYTES # (AUTO) 0.4 K/uL (0.4-2.0); MONOCYTES % (AUTO) 19.7 (0-10); NEUTROPHILS # (AUTO) 0.6 K/ul (2.0-6.9); NEUTROPHILS % (AUTO) 27.5 % (42.2-75.2); PLATELET COUNT 85 10^3/uL (140-440); RDW COEFFICIENT OF VARIATION 11.9 % (11.6-14.8); RED BLOOD COUNT 3.84 10^6/ul (4.20-5.40); WHITE BLOOD COUNT 2.18 K/ul (4.6-10.2)
[2020-11-14 06:12] LABS: TROPONIN I 0.016 ng/ml (0.0000-0.120)
[2020-11-14] MEDS: IMODIUM PO PRN (07:18)
[2020-11-14 08:47] LABS: ALANINE AMINOTRANSFERASE 36.5 U/L (0-35); ALBUMIN 3.91 g/dL (3.5-5.0); ALKALINE PHOSPHATASE 86.7 U/L (53-141); ASPARTATE AMINO TRANSFERASE 57.8 U/L (14-36); BILIRUBIN,TOTAL 0.26 mg/dL (0.2-1.3); BLOOD UREA NITROGEN 16.8 mg/dL (7-17); CALCIUM 8.9 mg/dL (8.4-10.2); CARBON DIOXIDE 22.7 mmol/L (22-30.0); CHLORIDE 101.5 mmol/L (98-107); CREATININE 0.84 mg/dL (0.60-1.30); GLUCOSE 116.3 mg/dL (74-106); SODIUM 139.2 mmol/L (134.5-145); TOTAL PROTEIN 7.02 g/dL (6.3-8.2)
[2020-11-14 08:50] LABS: POTASSIUM 2.75 mmol/L (3.5-5.1)
[2020-11-14] MEDS ORDERED: EFFEXOR XR PO SCH (09:00)
[2020-11-14] MEDS: DECADRON IVP SCH (10:03)
[2020-11-14] MEDS: LOTENSIN PO SCH (10:03)
[2020-11-14] MEDS: FOLIC ACID PO SCH (10:04)
[2020-11-14] MEDS: TOPROL XL PO SCH ×2 (10:04→20:38)
[2020-11-14] MEDS: MULTIVITAMIN TABLET PO SCH (10:04)
[2020-11-14] MEDS: VITAMIN D PO SCH (10:04)
[2020-11-14] MEDS: NORVASC PO SCH (10:04)
[2020-11-14] MEDS: FERROUS SULFATE PO SCH ×2 (10:05→20:38)
[2020-11-14] MEDS: PRAVACHOL PO SCH (10:05)
[2020-11-14] MEDS: ZINC-220 PO SCH (10:05)
[2020-11-14] MEDS: ZITHROMAX PO SCH (10:05)
[2020-11-14] MEDS: EFFEXOR XR PO SCH (10:05)
[2020-11-14] MEDS: ROCEPHIN 1 GM/50 ML D5W 1 GM/50 ML BAG IV SCH (10:05)
[2020-11-14] MEDS: SYMBICORT 160-4.5 MCG INHALER IH SCH ×2 (10:06→20:39)
[2020-11-14] MEDS: KENALOG 0.1% TP SCH (10:12)
[2020-11-14] MEDS ORDERED: POTASSIUM CHLORIDE 20 MEQ/100 ML PREMIX 20 MEQ/100 ML BAG IV STA (10:21)
[2020-11-14] MEDS ORDERED: SODIUM CHLORIDE 0.9%-KCL 40MEQ 1,000 ML IV SCH (10:30)
[2020-11-14] MEDS: LOMOTIL PO PRN ×2 (11:24→18:23)
--- NOTE | 2020-11-14 11:49 | PCM.PROG ---
Date Seen by Provider: 11/14/20 Time Seen by Provider: 08:00 Subjective: Patient states that she is feeling better. Has been using a venturi mask as it makes her breath easy. Denies any chest pain. Had some loose stool yesterday for which she was give imodium no loose stools today. Objective: Vitals: T=97.5 F, P=97, R=19, AH=590/90, SPO2=96 HEENT: [ wearing a venturi mask ] Neck: [ supple no JVD ] Lungs: [Bilateral wheezing mostly expiratory scattered throughout the lung] CVS: [Regular, S1 and S2] Abdomen: [Hyperactive bowel sounds. Non tender to palpation ] Extremities: [No edema noted ] Neurological: [AAO x 3 with no gross deficits ] Skin: [No skin lesions] Lab/Tests/Diagnostic Imaging: [Reviewed noted with severe hypokalemia ] (1) Hypokalemia: Status: Acute Code(s): E87.6 - Hypokalemia SNOMED Code(s): 36491111 Assessment: Likely due to losses from diarrhea. Diarrhea improved. will Replace and check Magnesium also and replace as needed. (2) COVID-19: Status: Acute Code(s): U07.1 - COVID-19 SNOMED Code(s): 687585459 Assessment: Feeling better than on admission. Sill requiring oxygen for dyspnea and hypoxemia. Continue Remdisivir until completion. continue Rocephin and Zithromax Continue Dexamethasone. (3) Acute gastroenteritis: Status: Acute Code(s): K52.9 - Noninfective gastroenteritis and colitis, unspecified SNOMED Code(s): 15676924 Assessment: Likely viral ( may be due to COVID-19 infection) continue to push fluids and Imodium I not improved Try lomotil. (4) Hypertension: Status: Acute Code(s): I10 - Essential (primary) hypertension SNOMED Code(s): 18746445 Assessment: Blood pressure controlled. Continue current medications. (5) Chronic obstructive pulmonary disease: Status: Acute Code(s): J44.9 - Chronic obstructive pulmonary disease, unspecified SNOMED Code(s): 10803885 Assessment: Noted with diffuse wheezing. IS on IV and IH steroids. continue Zithromax antibiotics. will increase frequency of ALBUTEROL from q8 hours to d4epkgc while awake Plan: As noted above on each of the problems will Continue to monitor daily labs.
[2020-11-14] MEDS ORDERED: POTASSIUM CHLORIDE 20 MEQ/100 ML PREMIX 20 MEQ/100 ML BAG IV ONE (13:00)
[2020-11-14] MEDS: VEKLURY 100 MG in SODIUM CHLORIDE 250 ML IV SCH (13:02)
[2020-11-14] MEDS: K-DUR PO SCH ×2 (14:13→17:33)
[2020-11-14] MEDS: SODIUM CHLORIDE 0.9%-KCL 40MEQ 1,000 ML IV SCH (17:34)
[2020-11-14] MEDS: XANAX PO PRN (20:39)
[2020-11-14] MEDS: CLARITIN PO SCH (20:39)
[2020-11-15] MEDS: VENTOLIN HFA (PER PUFF-WITH SPACER) IH SCH ×6 (02:29→22:11)
[2020-11-15 05:47] LABS: ABG O2 HGB 94.1 % (95-100); ABG PH 7.43 (7.35-7.45); BEecf -1.7 (-2.0-3.0); COHb 1.9 (0.5-1.5); HCO3 22.6 (21-28); MetHb 0.9 (0-1.5); TCO2 23.6 (19-24); sO2 97.5 % (94-98); tHb 16.1 g/dl (11.7-17.4)
[2020-11-15] MEDS: PEPCID PO SCH ×2 (05:55→17:16)
[2020-11-15 06:20] LABS: HEMATOCRIT 31.1 % (37.0-47.0); HEMOGLOBIN 10.3 g/dl (12.0-16.0); LYMPHOCYTES # (AUTO) 0.8 K/uL (0.60-3.4); LYMPHOCYTES % (AUTO) 38.5 (10.0-50.0); MEAN CORPUSCULAR HEMOGLOBIN 32.5 pg (27.0-31.0); MEAN CORPUSCULAR HGB CONC 33.1 (31.8-35.4); MEAN CORPUSCULAR VOLUME 98.1 fl (81.0-99.0); MONOCYTES # (AUTO) 0.5 K/uL (0.4-2.0); MONOCYTES % (AUTO) 23.4 (0-10); NEUTROPHILS # (AUTO) 0.8 K/ul (2.0-6.9); NEUTROPHILS % (AUTO) 38.1 % (42.2-75.2); PLATELET COUNT 104 10^3/uL (140-440); RDW COEFFICIENT OF VARIATION 11.8 % (11.6-14.8); RED BLOOD COUNT 3.17 10^6/ul (4.20-5.40); WHITE BLOOD COUNT 2.18 K/ul (4.6-10.2)
[2020-11-15 06:35] LABS: ALANINE AMINOTRANSFERASE 28.1 U/L (0-35); ALBUMIN 3.09 g/dL (3.5-5.0); ALKALINE PHOSPHATASE 68.6 U/L (53-141); ASPARTATE AMINO TRANSFERASE 40.7 U/L (14-36); BILIRUBIN,TOTAL 0.14 mg/dL (0.2-1.3); BLOOD UREA NITROGEN 19.6 mg/dL (7-17); CALCIUM 8.3 mg/dL (8.4-10.2); CARBON DIOXIDE 23.8 mmol/L (22-30.0); CHLORIDE 109.1 mmol/L (98-107); CREATININE 0.68 mg/dL (0.60-1.30); GLUCOSE 118.5 mg/dL (74-106); POTASSIUM 4.15 mmol/L (3.5-5.1); SODIUM 138.3 mmol/L (134.5-145); TOTAL PROTEIN 5.64 g/dL (6.3-8.2)
[2020-11-15 06:42] LABS: PROTHROMBIN TIME 11.3 SEC (9.3-11.0)
--- NOTE | 2020-11-15 08:55 | PCM.PROG ---
pt improving, vss, still requires 3liters oxygen by VM, speech fluent, still receiving albuterol neb treatments, eating her meals, receiving lomotil and IV NS with KCL for diarrhea, K+ today 4.1, Remdesivir dose 4/5 today, continue covid protochol, eomi, buccal moist, lungs clear, RRR, abdomen soft and nontender, cn 3 to 10 grossly intact, care to Dr Wakefield at 19:00
[2020-11-15] MEDS: DECADRON IVP SCH (09:25)
[2020-11-15] MEDS: K-DUR PO SCH ×3 (09:27→17:16)
[2020-11-15] MEDS: FERROUS SULFATE PO SCH ×2 (09:27→20:30)
[2020-11-15] MEDS: LOTENSIN PO SCH (09:27)
[2020-11-15] MEDS: MULTIVITAMIN TABLET PO SCH (09:27)
[2020-11-15] MEDS: VITAMIN D PO SCH (09:28)
[2020-11-15] MEDS: NORVASC PO SCH (09:28)
[2020-11-15] MEDS: ZINC-220 PO SCH (09:28)
[2020-11-15] MEDS: PRAVACHOL PO SCH (09:28)
[2020-11-15] MEDS: FOLIC ACID PO SCH (09:28)
[2020-11-15] MEDS: TOPROL XL PO SCH ×2 (09:28→20:31)
[2020-11-15] MEDS: EFFEXOR XR PO SCH (09:28)
[2020-11-15] MEDS: SYMBICORT 160-4.5 MCG INHALER IH SCH ×2 (09:29→20:36)
[2020-11-15] MEDS: ROCEPHIN 1 GM/50 ML D5W 1 GM/50 ML BAG IV SCH (09:29)
[2020-11-15] MEDS: LOMOTIL PO PRN (09:29)
[2020-11-15] MEDS: KENALOG 0.1% TP SCH (09:45)
[2020-11-15] MEDS: VEKLURY 100 MG in SODIUM CHLORIDE 250 ML IV SCH (13:48)
[2020-11-15] MEDS ORDERED: NORCO 5-325 PO PRN (14:15)
[2020-11-15] MEDS ORDERED: PERCOCET 5-325 PO PRN (15:02)
[2020-11-15] MEDS: SODIUM CHLORIDE 0.9%-KCL 40MEQ 1,000 ML IV SCH ×2 (15:55→20:30)
[2020-11-15] MEDS: CLARITIN PO SCH (20:31)
[2020-11-16 05:27] LABS: HEMATOCRIT 33.2 % (37.0-47.0); HEMOGLOBIN 10.8 g/dl (12.0-16.0); MEAN CORPUSCULAR HGB CONC 32.5 (31.8-35.4); MEAN CORPUSCULAR VOLUME 98.5 fl (81.0-99.0); PLATELET COUNT 132 10^3/uL (140-440); RDW COEFFICIENT OF VARIATION 11.9 % (11.6-14.8); RED BLOOD COUNT 3.37 10^6/ul (4.20-5.40); WHITE BLOOD COUNT 3.37 K/ul (4.6-10.2)
[2020-11-16 05:39] LABS: ALANINE AMINOTRANSFERASE 29.1 U/L (0-35); ALBUMIN 3.61 g/dL (3.5-5.0); ALKALINE PHOSPHATASE 71.4 U/L (53-141); ASPARTATE AMINO TRANSFERASE 39.6 U/L (14-36); BILIRUBIN,TOTAL 0.23 mg/dL (0.2-1.3); BLOOD UREA NITROGEN 18.5 mg/dL (7-17); CALCIUM 8.86 mg/dL (8.4-10.2); CARBON DIOXIDE 25.8 mmol/L (22-30.0); CHLORIDE 103.6 mmol/L (98-107); CREATININE 0.66 mg/dL (0.60-1.30); POTASSIUM 5.15 mmol/L (3.5-5.1); TOTAL PROTEIN 6.3 g/dL (6.3-8.2)
[2020-11-16] MEDS: VENTOLIN HFA (PER PUFF-WITH SPACER) IH SCH ×6 (05:40→22:00)
[2020-11-16 05:47] LABS: ANISOCYTOSIS NOT PRESENT (NOT PRESENT)
[2020-11-16 05:50] LABS: PROTHROMBIN TIME 10.9 SEC (9.3-11.0)
[2020-11-16] MEDS: PEPCID PO SCH ×2 (06:05→16:59)
[2020-11-16] MEDS: LOMOTIL PO PRN (09:54)
[2020-11-16] MEDS: ROCEPHIN 1 GM/50 ML D5W 1 GM/50 ML BAG IV SCH (09:54)
[2020-11-16] MEDS: XANAX PO PRN (09:55)
[2020-11-16] MEDS: ZINC-220 PO SCH (09:55)
[2020-11-16] MEDS: VITAMIN D PO SCH (09:55)
[2020-11-16] MEDS: EFFEXOR XR PO SCH (09:56)
[2020-11-16] MEDS: LOTENSIN PO SCH (09:57)
[2020-11-16] MEDS: NORVASC PO SCH (09:57)
[2020-11-16] MEDS: MULTIVITAMIN TABLET PO SCH (09:57)
[2020-11-16] MEDS: PRAVACHOL PO SCH (09:58)
[2020-11-16] MEDS: K-DUR PO SCH (09:58)
[2020-11-16] MEDS: FERROUS SULFATE PO SCH ×2 (09:58→20:59)
[2020-11-16] MEDS: TOPROL XL PO SCH ×2 (09:58→20:59)
[2020-11-16] MEDS: FOLIC ACID PO SCH (09:58)
[2020-11-16] MEDS: DECADRON IVP SCH (09:59)
[2020-11-16] MEDS: KENALOG 0.1% TP SCH (10:12)
[2020-11-16] MEDS: SYMBICORT 160-4.5 MCG INHALER IH SCH ×2 (10:12→21:00)
--- NOTE | 2020-11-16 10:33 | PCM.PROG ---
pt stable, nad, but still oxygen dependent, last day of Remdesivir, alert and oriented, K+ 5.1, will discontinue potassium supplement today, diarrhea continues and will still off lomotil, buccal moist, neck supple, lungs clear, RRR, abdomen soft and nontender, cn 3 to 10 grossly intact, care to Dr Luu at 19:00
[2020-11-16] MEDS: VEKLURY 100 MG in SODIUM CHLORIDE 250 ML IV SCH (12:34)
[2020-11-16 14:09] LABS: C-REACTIVE PROTEIN 64 mg/L (0-10)
[2020-11-16] MEDS: CLARITIN PO SCH (20:59)
[2020-11-16] MEDS: XANAX PO SCH (21:00)
[2020-11-17] MEDS: VENTOLIN HFA (PER PUFF-WITH SPACER) IH SCH ×6 (02:00→22:15)
[2020-11-17 03:08] LABS: C-REACTIVE PROTEIN 38 mg/L (0-10)
[2020-11-17] MEDS: PEPCID PO SCH ×2 (05:33→16:26)
[2020-11-17 05:42] LABS: BASOPHILS % (AUTO) 0.2 % (0.0-3.0); HEMATOCRIT 38.9 % (37.0-47.0); HEMOGLOBIN 12.5 g/dl (12.0-16.0); IMMATURE GRANULOCYTE # (AUTO) 0.1 (0.0-1.0); LYMPHOCYTES # (AUTO) 1.7 K/uL (0.60-3.4); LYMPHOCYTES % (AUTO) 28.3 (10.0-50.0); MEAN CORPUSCULAR HEMOGLOBIN 32.3 pg (27.0-31.0); MEAN CORPUSCULAR HGB CONC 32.1 (31.8-35.4); MEAN CORPUSCULAR VOLUME 100.5 fl (81.0-99.0); NEUTROPHILS # (AUTO) 3.2 K/ul (2.0-6.9); NEUTROPHILS % (AUTO) 54.5 % (42.2-75.2); PLATELET COUNT 164 10^3/uL (140-440); RDW COEFFICIENT OF VARIATION 11.9 % (11.6-14.8); RED BLOOD COUNT 3.87 10^6/ul (4.20-5.40); WHITE BLOOD COUNT 5.94 K/ul (4.6-10.2)
[2020-11-17 05:54] LABS: ALANINE AMINOTRANSFERASE 33.1 U/L (0-35); ALBUMIN 4.08 g/dL (3.5-5.0); ALKALINE PHOSPHATASE 72.4 U/L (53-141); ASPARTATE AMINO TRANSFERASE 43.8 U/L (14-36); BILIRUBIN,TOTAL 0.36 mg/dL (0.2-1.3); BLOOD UREA NITROGEN 22.2 mg/dL (7-17); CALCIUM 9.33 mg/dL (8.4-10.2); CARBON DIOXIDE 25.3 mmol/L (22-30.0); CHLORIDE 100.6 mmol/L (98-107); CREATININE 0.72 mg/dL (0.60-1.30); GLUCOSE 102.9 mg/dL (74-106); POTASSIUM 4.48 mmol/L (3.5-5.1); SODIUM 137.3 mmol/L (134.5-145); TOTAL PROTEIN 7.05 g/dL (6.3-8.2)
[2020-11-17 06:02] LABS: PROTHROMBIN TIME 10.7 SEC (9.3-11.0)
[2020-11-17] MEDS: TOPROL XL PO SCH ×2 (08:06→20:35)
[2020-11-17] MEDS: MULTIVITAMIN TABLET PO SCH (08:06)
[2020-11-17] MEDS: NORVASC PO SCH (08:06)
[2020-11-17] MEDS: LOTENSIN PO SCH (08:06)
[2020-11-17] MEDS: ZINC-220 PO SCH (08:06)
[2020-11-17] MEDS: EFFEXOR XR PO SCH (08:06)
[2020-11-17] MEDS: VITAMIN D PO SCH (08:06)
[2020-11-17] MEDS: SYMBICORT 160-4.5 MCG INHALER IH SCH ×2 (08:07→20:40)
[2020-11-17] MEDS: FERROUS SULFATE PO SCH ×2 (08:07→20:35)
[2020-11-17] MEDS: FOLIC ACID PO SCH (08:07)
[2020-11-17] MEDS: PRAVACHOL PO SCH (08:07)
[2020-11-17] MEDS: XANAX PO SCH ×2 (08:07→20:35)
[2020-11-17] MEDS: KENALOG 0.1% TP SCH (08:07)
[2020-11-17] MEDS: DECADRON IVP SCH (08:54)
--- NOTE | 2020-11-17 19:53 | PCM.PROG ---
Date Seen by Provider: 11/17/20 Time Seen by Provider: 10:30 Objective: Vitals: T=97.6 F, P=91, R=16, NY=482/68, SPO2=95 HEENT:cLEAR Neck: [] SUPPLE Lungs: [] Resp easy non labored CVS: []HR RRR Abdomen: []Soft non tender Extremities: []Neg edema Neurological: []CN I-XII intact. NO focal deficit Skin: []WNL n o rash Lab/Tests/Diagnostic Imaging: [] (1) Hypokalemia: Status: Acute Code(s): E87.6 - Hypokalemia SNOMED Code(s): 56861579 Assessment: K level up to 3.87 today (2) COVID-19: Status: Acute Code(s): U07.1 - COVID-19 SNOMED Code(s): 668040230 Assessment: Improving/Has completed Remdesvir tx (3) Acute gastroenteritis: Status: Acute Code(s): K52.9 - Noninfective gastroenteritis and colitis, unspecified SNOMED Code(s): 21433666 Assessment: Improved (4) Hypertension: Status: Acute Code(s): I10 - Essential (primary) hypertension SNOMED Code(s): 16994687 (5) Chronic obstructive pulmonary disease: Status: Acute Code(s): J44.9 - Chronic obstructive pulmonary disease, unspecified SNOMED Code(s): 61888910 Plan: Continue current therpay Monitor Lab PT /OT eval tx Increase activity in room Discharge planing
[2020-11-17] MEDS: CLARITIN PO SCH (20:35)
[2020-11-18] MEDS: VENTOLIN HFA (PER PUFF-WITH SPACER) IH SCH ×4 (04:55→14:10)
[2020-11-18 05:19] LABS: BASOPHILS % (AUTO) 0.2 % (0.0-3.0); HEMATOCRIT 35.1 % (37.0-47.0); HEMOGLOBIN 11.3 g/dl (12.0-16.0); IMMATURE GRANULOCYTE # (AUTO) 0.1 (0.0-1.0); IMMATURE GRANULOCYTE % (AUTO) 1.4 % (0.0-5.0); LYMPHOCYTES # (AUTO) 1.4 K/uL (0.60-3.4); LYMPHOCYTES % (AUTO) 21.2 (10.0-50.0); MEAN CORPUSCULAR HEMOGLOBIN 31.8 pg (27.0-31.0); MEAN CORPUSCULAR HGB CONC 32.2 (31.8-35.4); MEAN CORPUSCULAR VOLUME 98.9 fl (81.0-99.0); MONOCYTES # (AUTO) 0.8 K/uL (0.4-2.0); MONOCYTES % (AUTO) 12.6 (0-10); NEUTROPHILS # (AUTO) 4.2 K/ul (2.0-6.9); NEUTROPHILS % (AUTO) 64.6 % (42.2-75.2); PLATELET COUNT 178 10^3/uL (140-440); RDW COEFFICIENT OF VARIATION 11.7 % (11.6-14.8); RED BLOOD COUNT 3.55 10^6/ul (4.20-5.40); WHITE BLOOD COUNT 6.43 K/ul (4.6-10.2)
[2020-11-18 05:32] VITALS: BP 131/83; TEMP 97.9
[2020-11-18 05:36] LABS: ALANINE AMINOTRANSFERASE 35.2 U/L (0-35); ALBUMIN 3.59 g/dL (3.5-5.0); ALKALINE PHOSPHATASE 69.5 U/L (53-141); BILIRUBIN,TOTAL 0.24 mg/dL (0.2-1.3); BLOOD UREA NITROGEN 24.4 mg/dL (7-17); CALCIUM 9.01 mg/dL (8.4-10.2); CARBON DIOXIDE 29.1 mmol/L (22-30.0); CHLORIDE 98.6 mmol/L (98-107); CREATININE 0.75 mg/dL (0.60-1.30); GLUCOSE 109.9 mg/dL (74-106); MAGNESIUM 2.02 mg/dL (1.6-2.3); POTASSIUM 4.25 mmol/L (3.5-5.1); SODIUM 134.8 mmol/L (134.5-145); TOTAL PROTEIN 6.29 g/dL (6.3-8.2)
[2020-11-18] MEDS: PEPCID PO SCH (05:46)
[2020-11-18] MEDS: DECADRON IVP SCH (08:37)
[2020-11-18] MEDS: VITAMIN D PO SCH (08:38)
[2020-11-18] MEDS: FOLIC ACID PO SCH (08:38)
[2020-11-18] MEDS: MULTIVITAMIN TABLET PO SCH (08:38)
[2020-11-18] MEDS: LOTENSIN PO SCH (08:39)
[2020-11-18] MEDS: PRAVACHOL PO SCH (08:39)
[2020-11-18] MEDS: EFFEXOR XR PO SCH (08:39)
[2020-11-18] MEDS: NORVASC PO SCH (08:40)
[2020-11-18] MEDS: XANAX PO SCH (08:40)
[2020-11-18] MEDS: ZINC-220 PO SCH (08:40)
[2020-11-18] MEDS: SYMBICORT 160-4.5 MCG INHALER IH SCH (08:40)
[2020-11-18] MEDS: TOPROL XL PO SCH (08:40)
[2020-11-18] MEDS: FERROUS SULFATE PO SCH (08:40)
[2020-11-18] MEDS: KENALOG 0.1% TP SCH (08:41)
--- NOTE | 2020-11-18 11:23 | PCM.DC ---
Final Diagnosis: Respiratory Distress, COVID-19, Hypoxia, COPD, Stage 4 lung Cancer, Hypokalemia (1) Hypokalemia: Status: Acute Code(s): E87.6 - Hypokalemia SNOMED Code(s): 04567920 (2) COVID-19: Status: Acute Code(s): U07.1 - COVID-19 SNOMED Code(s): 430694689 (3) Acute gastroenteritis: Status: Acute Code(s): K52.9 - Noninfective gastroenteritis and colitis, unspecified SNOMED Code(s): 82149727 (4) Hypertension: Status: Acute Code(s): I10 - Essential (primary) hypertension SNOMED Code(s): 89158489 Qualifiers: Hypertension type: unspecified Qualified Code(s): I10 - Essential (primary) hypertension (5) Chronic obstructive pulmonary disease: Status: Acute Code(s): J44.9 - Chronic obstructive pulmonary disease, unspecified SNOMED Code(s): 91049844 Reason for Hospitalization: Respiratory Distress, COPD and COVID-19 Prognosis at Discharge: Fair Condition at Discharge: Stable and Improves Medications at Discharge: Ambulatory Orders Medication Instructions Recorded aspirin 81 mg chewable tablet 81 mg PO DAILY 07/16/13 (Aspirin Low-Strength) multivitamin (Daily Multi-Vitamin) 1 ea PO DAILY 04/26/16 ondansetron 4 mg disintegrating 4 mg PO Q6H PRN #10 tab 04/22/19 tablet Fluzone Quad [id number] (PF) 60 mcg 0.5 ml IM ONCE #1 ml NS 11/08/19 (15 mcg x 4)/0.5 mL IM syringe (flu vacc [id number] 6mos up(PF)) Prevnar 13 (PF) 0.5 mL 0.5 ml IM ONCE #0.5 ml NS 11/08/19 intramuscular syringe (pneumoc 13-kin conj-dip cr(PF)) alprazolam 0.5 mg tablet 0.5 mg PO QHS PRN 09/16/20 cetirizine 10 mg tablet 10 mg PO QHS tab 09/16/20 dexamethasone 4 mg tablet 4 mg PO QDAY 09/16/20 docusate sodium 100 mg capsule 100 mg PO QDAY PRN MDD 100 09/16/20 hydroxyzine HCl 25 mg tablet 25 mg PO QID PRN #120 tab 09/16/20 prochlorperazine maleate 10 mg 10 mg PO Q6H PRN 09/16/20 tablet triamcinolone acetonide 0.1 % 1 applic TOPICAL QDAY #454 g 09/16/20 topical ointment amlodipine 10 mg tablet 10 mg PO DAILY 11/12/20 benazepril 40 mg tablet 40 mg PO DAILY 11/12/20 benazepril 40 mg tablet 40 mg PO DAILY 11/12/20 budesonide-formoterol HFA 160 2 puff INHALATION BID 11/12/20 mcg-4.5 mcg/actuation aerosol inhaler (Symbicort) ferrous sulfate 325 mg (65 mg 325 mg PO BID 11/12/20 iron) tablet (FeroSul) folic acid 1 mg tablet 1 mg PO DAILY 11/12/20 metoprolol succinate 100 mg 50 mg PO BID 11/12/20 tablet,extended release 24 hr pravastatin 40 mg tablet 40 mg PO DAILY 11/12/20 venlafaxine 75 mg capsule,extended 75 mg PO EVERY OTHER DAY 11/12/20 release 24 hr oxycodone-acetaminophen 5 mg-325 1 tab PO TID PRN 11/15/20 mg tablet Education Provided to Patient and Family: Home O2 Follow-ups: Your primary care physician in 3-4 days Discharge Disposition: Home Hospital Course: Pt was admitted for respiratory distress, COPD, hypokalemia and COVID-19. She was treated with oxygen, potassium and ramdesevir. She showed slow improvement throughout her hospital course and was eating and drinking well on the day of discharge. She desired to go home. She was evaluated and approved for home 02. She will be discharged in stable and improved condition Plan: Home o2 and follow-up with her primary physician in 3-4 days.
[2020-11-18 12:11] LABS: C-REACTIVE PROTEIN 20 mg/L (0-10)
[2020-11-19 06:17] LABS: C-REACTIVE PROTEIN 10 mg/L (0-10)
== END 2020-11-18 15:15 | disposition home or self-care (01) | DRG 178 ==
LOC: ED 08:29 → MEDSURG B 14:01
PROVIDERS: ADMIT Emergency Medicine Emergency Medical Services; ATTEND Emergency Medicine
DX: C34.90 Malignant neoplasm of unspecified part of unspecified bronchus or lung; I10 Essential (primary) hypertension; R06.03 Acute respiratory distress; U07.1 COVID-19; R53.1 Weakness; K52.9 Noninfective gastroenteritis and colitis, unspecified; E87.6 Hypokalemia; Z99.81 Dependence on supplemental oxygen; J44.9 Chronic obstructive pulmonary disease, unspecified

== ENCOUNTER 2021-05-21 11:28 | Inpatient (IN) ==
--- NOTE | 2021-05-21 11:54 | ED.PDOC ---
General ED Provider: Dr. VIOLETTE MENDEZ Chief Complaint: Nausea/Vomiting Stated Complaint: One day hx of sig. nausea and vomiting with diarrhea. had same illness, he is better. No food poisoning known. She is not passing blood, and no fever. Hx of Stage IV lung cancer. Hx of chronic anemia. Time Seen by Provider: 05/21/21 11:45 Mode of Arrival: Ambulance Information Source: Patient Exam Limitations: No limitations Primary Care Provider: PERLA OLIVERA APRN Nursing and Triage Documentation Reviewed and Agree: Yes Does patient meet sepsis criteria?: No System Inflammatory Response Syndrome: Not Applicable Sepsis Protocol: For patient's 13 years and over: Temp is 96.8 and below OR 101 and greater Pulse >90 BPM Resp >20/minute Acutely Altered Mental Status Are patient's symptoms suggestive of a new infection, such as: -Pneumonia -Skin, Soft Tissue -Endocarditis -UTI -Bone, Joint Infection -Implantable Device -Acute Abdominal Infection -Wound Infection -Meningitis -Blood Stream Catheter Infection -Unknown GI Complaint Exam Vomiting/Diarrhea Complaint/Exam Onset/Duration: one day Symptoms Are: Still present Episodes of Vomiting over last 24 Hours: 10 Episodes of Diarrhea Over Last 24 Hours: 5 Initial Severity: Moderate Current Severity: Moderate Character of Vomiting: Reports Non-bilious Character of Diarrhea: Reports Watery Aggravating: Reports Food Alleviating: Reports None Associated Signs and Symptoms: Reports Cramping; Denies Dizziness, Light- headedness, Melena, Hematemesis, Fever or Abdominal pain Last Oral Intake: tried today 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 Non-GI Risk Factors: Reports None Surgical Obstruction Risk Factors: Reports None Related Surgical History: Reports None Abdominal Findings: Present Other (generalized cramping) Review of Systems Review Of Systems Constitutional: Reports Malaise, Weakness and Loss of appetite Eyes: Reports No symptoms Ears, Nose, Mouth, Throat: Reports No symptoms Respiratory: Reports No symptoms Cardiac: Reports No symptoms GI: Reports Diarrhea, Nausea, Poor appetite, Poor fluid intake and Vomiting : Reports No symptoms Musculoskeletal: Reports No symptoms Skin: Reports No symptoms Neurological: Reports No symptoms Endocrine: Reports No symptoms Hematologic/Lymphatic: Reports No symptoms All Other Systems: Reviewed and Negative [facility] Medical History Anemia Asthma Chronic obstructive pulmonary disease COVID-19 Defect of endplate of vertebra Depression Fatigue Folliculitis Gall bladder disease Hyperlipidemia Hypertension Hypertension (01/15/14) Hypokalemia Hypothyroidism Influenza vaccination administered at current visit Lung cancer Nausea and vomiting Need for vaccination against Streptococcus pneumoniae using pneumococcal conjugate vaccine 13 On antineoplastic chemotherapy Osteoporosis Stage 4 lung cancer Family History Other No known health problems Social History Smoking and tobacco status: Former smoker Tobacco: How many years used: 17 Second hand smoke exposure: Yes Alcohol intake: current Substance use type: does not use Eliza/scientology: samaritan Special eliza needs: No Agree to transfusion: Yes Adopted: No Caregiver/support person: Yes Household members: spouse Housing: house Lives independently: Yes Highest education level completed: 9th grade Financial difficulty paying for basics: not applicable service: No Current occupational status: unemployed Current occupational exposures/hazards: No Pets and animals: No Leisure activites: fishing History of recent travel: No Do you think of yourself as: straight/heterosexual Current gender identity: female Seatbelt use: always Helmet use: No Drives intoxicated or rides with intoxicated hazmat truck driver: No Water heater temperature set < 120 degrees: Yes Working smoke detector in home: Yes Fire extinguisher in home: Yes Carbon monoxide detector in home: No Firearms in home: Yes Firearms unloaded and locked: Yes Surgical History gall bladder History of tubal ligation Status post appendectomy Status post cholecystectomy (04/27/16) Female Reproductive History Menstrual Hx Hysterectomy: No Hx Tubal Ligation: No Physical Exam Physical Exam Appearance: Reports Ill-appearing and Other (dehydrated) Ill-appearing: Moderate Pain Distress: Moderate Eyes: Reports MILLA ENT: Reports Oropharynx normal Neck: Supple Respiratory: Reports Airway patent and Breath sounds clear Cardiovascular: Reports RRR and Pulses normal GI/: Reports Soft, Bowel sounds hyperactive and Other (cramping) Musculoskeletal: Reports Normal strength and ROM intact Skin: Reports Warm and Dry Neurological: Reports Sensation intact, Motor intact and Alert Psychiatric: Reports Affect appropriate and Mood appropriate Critical Care Note Critical Care Note Total Critical Care Time (mins): 0 Course Course Hematology/Chemistry: 05/21/21 12:20 05/21/21 12:20 Orders, Labs, Meds: Lab Review 05/21/21 05/21/21 05/21/21 12:20 12:20 15:20 WBC 11.55 H RBC 2.58 L Hgb 8.2 L Hct 26.2 L MCV 101.6 H MCH 31.8 H MCHC 31.3 L RDW Coeff of Taylor 14.0 Plt Count 495 H Immature Gran % (Auto) 0.7 Neut % (Auto) 88.9 H Lymph % (Auto) 4.9 L [place] % (Auto) 5.2 Eos % (Auto) 0.1 Baso % (Auto) 0.2 Neut # (Auto) 10.3 H Lymph # (Auto) 0.6 [place] # (Auto) 0.6 Eos # (Auto) 0.0 Baso # (Auto) 0.0 Immature Gran # (Auto) 0.1 Sodium 138.0 Potassium 4.02 Chloride 105.2 Carbon Dioxide 17.9 L Anion Gap 18.92 BUN 24.1 H Creatinine 1.52 H Estimated GFR (MDRD) 35.00 BUN/Creatinine Ratio 15.85 Glucose 153.6 H Calcium 8.72 Total Bilirubin 0.43 AST 41.0 H ALT 22.1 Alkaline Phosphatase 87.7 Total Protein 7.52 Albumin 4.09 Globulin 3.43 Albumin/Globulin Ratio 1.19 SARS CoV-2 RNA Rapid COLLEEN Negative Orders Category Date Time Status PLACE PATIENT OBSERVATION .TO MEDSURG (NON-MONITORED ADMISSION 05/21/21 15:08 Active BED) PLACE PATIENT OBSERVATION .TO MEDSURG (NON-MONITORED ADMISSION 05/21/21 15:09 Active BED) ACTIVITY .BR with BRP CARE 05/21/21 15:09 Active C-DIFF MONITORING (NURSING) BID CARE 05/21/21 15:19 Active INTAKE & OUTPUT Q8HR CARE 05/21/21 15:10 Active IP: INSERT SALINE LOCK ONCE CARE 05/21/21 15:10 Active VITAL SIGNS Q4HR CARE 05/21/21 15:11 Active CLEAR LIQUID DIET DIETARY 05/21/21 Dinner Ordered CBC W/ AUTO DIFF DAILY@0600 LAB 05/22/21 06:00 Ordered CBC W/ AUTO DIFF DAILY@0600 LAB 05/23/21 06:00 Ordered CBC W/ AUTO DIFF Stat LAB 05/21/21 12:20 Completed COMPREHENSIVE METABOLIC PANEL Stat LAB 05/21/21 12:20 Completed COVID [SARS COV-2 RNA RAPID COLLEEN] Stat LAB 05/21/21 15:20 Completed OCCULT BLOOD, STOOL Stat LAB 05/21/21 17:12 Results Loperamide HCl [Imodium] MEDS 05/21/21 12:00 Discontinued 4 mg PO ONCE ONE Ondansetron HCl/Pf [Zofran 4 mg/2 ml] MEDS 05/21/21 15:31 Active 8 mg IVP QID PRN Prochlorperazine Edisylate [Compazine] MEDS 05/21/21 14:37 Discontinued 10 mg IVP ONCE ONE Ringers Lactated Solution [Lactated Ringers] 1,000 ml MEDS 05/21/21 12:00 Discontinued IV BOLUS Ringers Lactated Solution [Lactated Ringers] 1,000 ml MEDS 05/21/21 13:13 Discontinued IV BOLUS Sodium Chloride 0.9% [Sodium Chloride] 1,000 ml MEDS 05/21/21 15:30 Active IV 125 mls/hr RESUSCITATION STATUS Routine OTHERS 05/21/21 15:09 Ordered Medications Generic Name Dose Route Start Last Admin Trade Name Freq PRN Reason Stop Dose Admin Alprazolam 0.5 mg 05/21/21 21:00 Alprazolam 0.5 Mg Tablet PO BEDTIME PRN Anxiety Amlodipine Besylate 10 mg 05/22/21 09:00 Amlodipine Besylate 5 Mg Tablet PO DAILY [facility] Aspirin 81 mg 05/22/21 09:00 Aspirin 81 Mg Tab.Chew PO DAILY [facility] Benazepril HCl 40 mg 05/22/21 09:00 Benazepril Hcl 10 Mg Tablet PO DAILY [facility] Budesonide/Formoterol Fumarate 0 puff 05/21/21 17:30 Budesonide/Formoterol Fumarate 160/4.5 Mcg Inhaler IH .COMPLEX [facility] Ferrous Sulfate 324 mg 05/21/21 21:00 05/21/21 20:10 Ferrous Sulfate 324 Mg Tablet.Dr PO 324 mg BID [facility] Administration Folic Acid 1 mg 05/22/21 09:00 Folic Acid 1 Mg Tablet PO DAILY [facility] Sodium Chloride 1,000 mls @ 125 mls/hr 05/21/21 15:30 05/21/21 15:36 Sodium Chloride IV 125 mls/hr .Q8H [facility] Administration Loperamide HCl 1 mg 05/21/21 21:03 Loperamide Hcl 2 Mg Tablet PO AFTER LOOSE STOOLS PRN Diarrhea Loratadine 10 mg 05/21/21 21:00 05/21/21 20:11 Loratadine 10 Mg Tablet PO 10 mg BEDTIME [facility] Administration Metoprolol Succinate 50 mg 05/21/21 21:00 05/21/21 20:11 Metoprolol Succinate 50 Mg Tab.Er.24h PO 50 mg BID [facility] Administration Multivitamins 1 tab 05/22/21 09:00 Multivitamin 1 Tab PO DAILY [facility] Non-Formulary Medication 4 mg 05/21/21 17:30 Dexamethasone PO QDAY [facility] Non-Formulary Medication 1 applic 05/21/21 17:30 Triamcinolone Acetonide TP QDAY [facility] Ondansetron HCl 8 mg 05/21/21 15:31 Ondansetron Hcl/Pf 4 Mg/2 Ml Sdv IVP QID PRN Nausea / Vomiting Oxycodone/Acetaminophen 1 tab 05/21/21 17:19 05/21/21 20:15 Oxycodone/Acetaminophen 5/325 Mg Tablet PO 1 tab TID PRN Administration Pain Pravastatin Sodium 40 mg 05/22/21 09:00 Pravastatin Sodium 40 Mg Tablet PO DAILY [facility] Venlafaxine HCl 75 mg 05/23/21 09:00 Venlafaxine Hcl 75 Mg Cap.Er.24h PO EVERY OTHER DAY [facility] Discontinued Medications Generic Name Dose Route Start Last Admin Trade Name Freq PRN Reason Stop Dose Admin Lactated Ringer's 1,000 mls @ 1,000 mls/hr 05/21/21 12:00 05/21/21 12:04 Lactated Ringers IV 05/21/21 12:59 1,000 mls/hr BOLUS STA Administration Lactated Ringer's 1,000 mls @ 1,000 mls/hr 05/21/21 13:13 05/21/21 13:19 Lactated Ringers IV 05/21/21 14:12 1,000 mls/hr BOLUS STA Administration Loperamide HCl 4 mg 05/21/21 12:00 05/21/21 12:04 Loperamide Hcl 2 Mg Tablet PO 05/21/21 12:01 4 mg ONCE ONE Administration Loperamide HCl 1 mg 05/21/21 16:43 Loperamide Hcl 2 Mg Tablet PO AFTER LOOSE STOOLS PRN Diarrhea Prochlorperazine Edisylate 10 mg 05/21/21 14:37 05/21/21 14:49 Prochlorperazine Edisylate 10 Mg/2 Ml Sdv IVP 05/21/21 14:38 10 mg ONCE ONE Administration Vital Signs: Temp Pulse Resp BP Pulse Ox 05/21/21 16:07 98.3 F 98 H 20 108/58 L 98 05/21/21 11:31 97.8 F 110 H 22 99/62 99 Discharge Plan Discharge Patient Disposition: ADMITTED INPATIENT Discharge Problem: Stage 4 malignant neoplasm of lung, Acute gastroenteritis ED Provider: VIOLETTE MENDZE Condition: Fair Physician Progress Note: []Dehydrated. Viral GE. Requests admit. Hospitalist will admit.
[2021-05-21] MEDS ORDERED: LACTATED RINGERS 1,000 ML IV STA ×2 (12:00→13:13)
[2021-05-21] MEDS ORDERED: IMODIUM PO ONE (12:00)
[2021-05-21 12:26] LABS: BASOPHILS % (AUTO) 0.2 % (0.0-3.0); EOSINOPHILS % (AUTO) 0.1 % (0.0-7.0); HEMATOCRIT 26.2 % (37.0-47.0); HEMOGLOBIN 8.2 g/dl (12.0-16.0); IMMATURE GRANULOCYTE # (AUTO) 0.1 (0.0-1.0); IMMATURE GRANULOCYTE % (AUTO) 0.7 % (0.0-5.0); LYMPHOCYTES # (AUTO) 0.6 K/uL (0.60-3.4); MEAN CORPUSCULAR HEMOGLOBIN 31.8 pg (27.0-31.0); MEAN CORPUSCULAR HGB CONC 31.3 (31.8-35.4); MEAN CORPUSCULAR VOLUME 101.6 fl (81.0-99.0); MONOCYTES # (AUTO) 0.6 K/uL (0.4-2.0); MONOCYTES % (AUTO) 5.2 (0-10); NEUTROPHILS # (AUTO) 10.3 K/ul (2.0-6.9); NEUTROPHILS % (AUTO) 88.9 % (42.2-75.2); PLATELET COUNT 495 10^3/uL (140-440); RED BLOOD COUNT 2.58 10^6/ul (4.20-5.40); WHITE BLOOD COUNT 11.55 K/ul (4.6-10.2)
[2021-05-21 12:47] LABS: ALANINE AMINOTRANSFERASE 22.1 U/L (0-35); ALBUMIN 4.09 g/dL (3.5-5.0); ALKALINE PHOSPHATASE 87.7 U/L (53-141); BILIRUBIN,TOTAL 0.43 mg/dL (0.2-1.3); BLOOD UREA NITROGEN 24.1 mg/dL (7-17); CALCIUM 8.72 mg/dL (8.4-10.2); CARBON DIOXIDE 17.9 mmol/L (22-30.0); CHLORIDE 105.2 mmol/L (98-107); CREATININE 1.52 mg/dL (0.60-1.30); GLUCOSE 153.6 mg/dL (74-106); POTASSIUM 4.02 mmol/L (3.5-5.1); TOTAL PROTEIN 7.52 g/dL (6.3-8.2)
[2021-05-21 12:49] LABS: LYMPHOCYTES % (AUTO) 4.9 (10.0-50.0)
[2021-05-21] MEDS ORDERED: COMPAZINE IVP ONE (14:37)
[2021-05-21] MEDS ORDERED: IMODIUM A-D PO PRN (15:13)
[2021-05-21] MEDS: SODIUM CHLORIDE 1,000 ML IV SCH (15:36)
[2021-05-21 16:35] VITALS: BMI 23.5
[2021-05-21] MEDS ORDERED: IMODIUM PO PRN (16:43)
[2021-05-21 17:27] LABS: OCCULT BLOOD SAMPLE 1 POSITIVE (NEGATIVE)
[2021-05-21] MEDS ORDERED: NON-FORMULARY MEDICATION (Triamcinolone Acetonide 0.1 % ointment) TP SCH (17:30)
[2021-05-21] MEDS ORDERED: SYMBICORT 160-4.5 MCG INHALER IH SCH (17:30)
[2021-05-21] MEDS ORDERED: DEXAMETHASONE 4 MG PO SCH (17:30)
[2021-05-21 17:31] LABS: ADENOVIRUS F40/41 (PCR) NOT DETECTED (NOT DETECT); ASTROVIRUS (PCR) NOT DETECTED (NOT DETECT); CAMPYLOBACTER (PCR) NOT DETECTED (NOT DETECT); CRYPTOSPORIDIUM (PCR) NOT DETECTED (NOT DETECT); CYCLOSPORA CAYETANENSIS (PCR) NOT DETECTED (NOT DETECT); ENTAMOEBA HISTOLYTICA (PCR) NOT DETECTED (NOT DETECT); ENTEROAGGREGATIVE E.COLI (PCR) NOT DETECTED (NOT DETECT); GIARDIA LAMBLIA (PCR) NOT DETECTED (NOT DETECT); NOROVIRUS GI/GII (PCR) NOT DETECTED (NOT DETECT); PLESIOMONAS SHIGELLOIDES (PCR) NOT DETECTED (NOT DETECT); SALMONELLA(PCR) NOT DETECTED (NOT DETECT); SAPOVIRUS (PCR) NOT DETECTED (NOT DETECT); SHIGA-LIKE TOXIN E.COLI (PCR) NOT DETECTED (NOT DETECT); VIBRIO (PCR) NOT DETECTED (NOT DETECT); VIBRIO CHOLERAE (PCR) NOT DETECTED (NOT DETECT); YERSINIA ENTEROCOLITICA (PCR) NOT DETECTED (NOT DETECT)
[2021-05-21 18:48] LABS: C DIFF A/B (PCR) NOT DETECTED (NOT DETECT); ROTAVIRUS A (PCR) DETECTED (NOT DETECT)
[2021-05-21] MEDS: FERROUS SULFATE PO SCH (20:10)
[2021-05-21] MEDS: CLARITIN PO SCH (20:11)
[2021-05-21] MEDS: PERCOCET 5-325 PO PRN (20:15)
[2021-05-21] MEDS ORDERED: TOPROL XL PO SCH (21:00)
[2021-05-21] MEDS ORDERED: XANAX PO PRN (21:00)
[2021-05-21] MEDS ORDERED: NON-FORMULARY MEDICATION (Ferrous Sulfate [Ferosul] 325 mg (65 mg iron) tablet) PO SCH (21:00)
[2021-05-22] MEDS: ZOFRAN 4 MG/2 ML IVP PRN ×4 (00:21→20:30)
[2021-05-22] MEDS: IMODIUM PO PRN ×5 (00:21→23:49)
[2021-05-22] MEDS: SODIUM CHLORIDE 1,000 ML IV SCH ×4 (00:25→23:43)
[2021-05-22 04:35] LABS: OCCULT BLOOD SAMPLE 2 POSITIVE (NEGATIVE)
[2021-05-22 05:18] LABS: BASOPHILS % (AUTO) 0.3 % (0.0-3.0); EOSINOPHILS # (AUTO) 0.2 K/ul (0.0-0.7); EOSINOPHILS % (AUTO) 2.8 % (0.0-7.0); HEMATOCRIT 22.7 % (37.0-47.0); HEMOGLOBIN 7.1 g/dl (12.0-16.0); IMMATURE GRANULOCYTE # (AUTO) 0.1 (0.0-1.0); IMMATURE GRANULOCYTE % (AUTO) 0.7 % (0.0-5.0); LYMPHOCYTES # (AUTO) 0.7 K/uL (0.60-3.4); LYMPHOCYTES % (AUTO) 9.3 (10.0-50.0); MEAN CORPUSCULAR HEMOGLOBIN 31.1 pg (27.0-31.0); MEAN CORPUSCULAR HGB CONC 31.3 (31.8-35.4); MEAN CORPUSCULAR VOLUME 99.6 fl (81.0-99.0); MONOCYTES # (AUTO) 0.7 K/uL (0.4-2.0); MONOCYTES % (AUTO) 10.1 (0-10); NEUTROPHILS # (AUTO) 5.6 K/ul (2.0-6.9); NEUTROPHILS % (AUTO) 76.8 % (42.2-75.2); PLATELET COUNT 522 10^3/uL (140-440); RDW COEFFICIENT OF VARIATION 14.1 % (11.6-14.8); RED BLOOD COUNT 2.28 10^6/ul (4.20-5.40); WHITE BLOOD COUNT 7.24 K/ul (4.6-10.2)
[2021-05-22] MEDS ORDERED: KENALOG 0.1% TP PRN (07:19)
[2021-05-22] MEDS ORDERED: ASPIRIN CHEWABLE PO SCH (08:30)
[2021-05-22] MEDS: MULTIVITAMIN TABLET PO SCH (08:51)
[2021-05-22] MEDS: FOLIC ACID PO SCH (08:51)
[2021-05-22] MEDS: FERROUS SULFATE PO SCH ×2 (08:52→20:20)
[2021-05-22] MEDS: LOTENSIN PO SCH (08:52)
[2021-05-22] MEDS: PRAVACHOL PO SCH (08:52)
[2021-05-22] MEDS: TOPROL XL PO SCH ×2 (08:52→20:20)
[2021-05-22] MEDS: NORVASC PO SCH (08:52)
[2021-05-22] MEDS: SYMBICORT 160-4.5 MCG INHALER IH SCH ×2 (08:59→20:22)
--- NOTE | 2021-05-22 14:55 | PCM.PROG ---
Date Seen by Provider: 05/22/21 Time Seen by Provider: 12:00 Subjective: Patient still nauseated and having diarrheal stools. Immodium helpful. Appetite poor. Oral intake poor. Feels weak. Objective: Vitals: T=99.5 F, P=107, R=18, LW=714/79, AJY9=463 Chronically ill appearing female in NAD. HEENT: [] Neck: [] Lungs: [] CVS: [] Abdomen: []Soft, nondistended. Nontender. Extremities: [] Neurological: [] Skin: [] Lab/Tests/Diagnostic Imaging: [] (1) Acute gastroenteritis: Status: Acute Code(s): K52.9 - Noninfective gastroenteritis and colitis, unspecified SNOMED Code(s): 21445093 Assessment: Patient still nauseated and feeling weak. PO remains poor. Plan: Continue present management.
[2021-05-22] MEDS ORDERED: TYLENOL PO ONE (15:55)
[2021-05-22] MEDS: PERCOCET 5-325 PO PRN (20:20)
[2021-05-22] MEDS: CLARITIN PO SCH (20:20)
[2021-05-23] MEDS: TYLENOL PO PRN ×2 (02:16→10:57)
[2021-05-23] MEDS: ZOFRAN 4 MG/2 ML IVP PRN ×2 (04:23→09:44)
[2021-05-23] MEDS: IMODIUM PO PRN ×3 (04:23→21:06)
[2021-05-23 05:08] LABS: BASOPHILS % (AUTO) 0.2 % (0.0-3.0); EOSINOPHILS # (AUTO) 0.2 K/ul (0.0-0.7); HEMATOCRIT 21.5 % (37.0-47.0); HEMOGLOBIN 6.6 g/dl (12.0-16.0); IMMATURE GRANULOCYTE % (AUTO) 0.5 % (0.0-5.0); LYMPHOCYTES # (AUTO) 0.9 K/uL (0.60-3.4); LYMPHOCYTES % (AUTO) 16.2 (10.0-50.0); MEAN CORPUSCULAR HEMOGLOBIN 30.7 pg (27.0-31.0); MEAN CORPUSCULAR HGB CONC 30.7 (31.8-35.4); MONOCYTES # (AUTO) 0.6 K/uL (0.4-2.0); MONOCYTES % (AUTO) 11.3 (0-10); NEUTROPHILS # (AUTO) 3.7 K/ul (2.0-6.9); NEUTROPHILS % (AUTO) 67.8 % (42.2-75.2); PLATELET COUNT 542 10^3/uL (140-440); RDW COEFFICIENT OF VARIATION 14.2 % (11.6-14.8); RED BLOOD COUNT 2.15 10^6/ul (4.20-5.40); WHITE BLOOD COUNT 5.49 K/ul (4.6-10.2)
[2021-05-23 05:21] LABS: ALANINE AMINOTRANSFERASE 21.9 U/L (0-35); ALBUMIN 3.13 g/dL (3.5-5.0); ALKALINE PHOSPHATASE 73.3 U/L (53-141); ASPARTATE AMINO TRANSFERASE 37.3 U/L (14-36); BILIRUBIN,TOTAL 0.22 mg/dL (0.2-1.3); BLOOD UREA NITROGEN 3.5 mg/dL (7-17); CALCIUM 8.21 mg/dL (8.4-10.2); CHLORIDE 107.3 mmol/L (98-107); CREATININE 0.71 mg/dL (0.60-1.30); GLUCOSE 95.3 mg/dL (74-106); SODIUM 135.2 mmol/L (134.5-145); TOTAL PROTEIN 5.94 g/dL (6.3-8.2)
[2021-05-23 05:38] LABS: POTASSIUM 2.35 mmol/L (3.5-5.1)
[2021-05-23] MEDS ORDERED: K-DUR PO STA (05:43)
[2021-05-23] MEDS: SODIUM CHLORIDE 1,000 ML IV SCH ×2 (07:33→09:45)
[2021-05-23 08:55] LABS: OCCULT BLOOD SAMPLE 3 NO SPECIMEN RECEIVED (NEGATIVE)
[2021-05-23] MEDS: LOTENSIN PO SCH (09:00)
[2021-05-23] MEDS: FERROUS SULFATE PO SCH ×2 (09:00→20:19)
[2021-05-23] MEDS: FOLIC ACID PO SCH (09:00)
[2021-05-23] MEDS: TOPROL XL PO SCH ×2 (09:00→20:19)
[2021-05-23] MEDS: MULTIVITAMIN TABLET PO SCH (09:00)
[2021-05-23] MEDS: NORVASC PO SCH (09:00)
[2021-05-23] MEDS: PRAVACHOL PO SCH (09:00)
[2021-05-23] MEDS: SYMBICORT 160-4.5 MCG INHALER IH SCH ×2 (09:01→20:20)
[2021-05-23] MEDS: PROTONIX IV IVP SCH (09:44)
--- NOTE | 2021-05-23 09:44 | PCM.PROG ---
Date Seen by Provider: 05/23/21 Time Seen by Provider: 09:40 Subjective: im weak--denies any melanotic stools Objective: Vitals: T=97.9 F, P=109, R=18, KW=365/63, NQL6=920 HEENT: [] Neck: [supple] Lungs: [scattered rhonchi] CVS: [rrr] Abdomen: [soft nt bs] Extremities: [] Neurological: [intact] Skin: [] Lab/Tests/Diagnostic Imaging: [noted hgb down to 6] (1) Acute gastroenteritis: Status: Acute Code(s): K52.9 - Noninfective gastroenteritis and colitis, unspecified SNOMED Code(s): 96849205 Assessment: her hng is down to 6--some of this is diluational as she has iv fluids running at 125 cc/hr---she denies any melanotic stools but nursing staff is noting occult blood pos in stool studies Plan: will add ppi, stop asa, dvt prophylaxis stockings---type and cross and transfuse packed cells
[2021-05-23 18:45] LABS: HEMOGLOBIN 11.4 g/dl (12.0-16.0)
[2021-05-23 18:46] LABS: HEMATOCRIT 34.1 % (37.0-47.0)
[2021-05-23] MEDS: PERCOCET 5-325 PO PRN (20:19)
[2021-05-23] MEDS: EFFEXOR XR PO SCH (20:19)
[2021-05-23] MEDS: CLARITIN PO SCH (20:19)
[2021-05-24] MEDS: SODIUM CHLORIDE 1,000 ML IV SCH (05:42)
[2021-05-24 05:46] LABS: BASOPHILS % (AUTO) 0.3 % (0.0-3.0); EOSINOPHILS # (AUTO) 0.3 K/ul (0.0-0.7); EOSINOPHILS % (AUTO) 4.5 % (0.0-7.0); HEMATOCRIT 34.7 % (37.0-47.0); HEMOGLOBIN 11.7 g/dl (12.0-16.0); IMMATURE GRANULOCYTE % (AUTO) 0.6 % (0.0-5.0); LYMPHOCYTES # (AUTO) 1.4 K/uL (0.60-3.4); LYMPHOCYTES % (AUTO) 19.1 (10.0-50.0); MEAN CORPUSCULAR HEMOGLOBIN 30.1 pg (27.0-31.0); MEAN CORPUSCULAR HGB CONC 33.7 (31.8-35.4); MEAN CORPUSCULAR VOLUME 89.2 fl (81.0-99.0); MONOCYTES # (AUTO) 0.9 K/uL (0.4-2.0); MONOCYTES % (AUTO) 12.1 (0-10); NEUTROPHILS # (AUTO) 4.5 K/ul (2.0-6.9); NEUTROPHILS % (AUTO) 63.4 % (42.2-75.2); PLATELET COUNT 571 10^3/uL (140-440); RDW COEFFICIENT OF VARIATION 17.2 % (11.6-14.8); RED BLOOD COUNT 3.89 10^6/ul (4.20-5.40); WHITE BLOOD COUNT 7.11 K/ul (4.6-10.2)
[2021-05-24 06:01] LABS: ALANINE AMINOTRANSFERASE 29.5 U/L (0-35); ALBUMIN 3.71 g/dL (3.5-5.0); ALKALINE PHOSPHATASE 89.5 U/L (53-141); ASPARTATE AMINO TRANSFERASE 51.8 U/L (14-36); BILIRUBIN,TOTAL 0.45 mg/dL (0.2-1.3); BLOOD UREA NITROGEN 2.4 mg/dL (7-17); CALCIUM 8.83 mg/dL (8.4-10.2); CARBON DIOXIDE 20.9 mmol/L (22-30.0); CHLORIDE 104.5 mmol/L (98-107); CREATININE 0.62 mg/dL (0.60-1.30); GLUCOSE 92.4 mg/dL (74-106); SODIUM 136.8 mmol/L (134.5-145); TOTAL PROTEIN 6.67 g/dL (6.3-8.2)
[2021-05-24 06:03] LABS: POTASSIUM 2.57 mmol/L (3.5-5.1)
[2021-05-24] MEDS: LOTENSIN PO SCH (08:27)
[2021-05-24] MEDS: TOPROL XL PO SCH ×2 (08:27→20:21)
[2021-05-24] MEDS: NORVASC PO SCH (08:28)
[2021-05-24] MEDS: FERROUS SULFATE PO SCH ×2 (08:28→20:21)
[2021-05-24] MEDS: PRAVACHOL PO SCH (08:29)
[2021-05-24] MEDS: MULTIVITAMIN TABLET PO SCH (08:29)
[2021-05-24] MEDS: FOLIC ACID PO SCH (08:29)
[2021-05-24] MEDS: SYMBICORT 160-4.5 MCG INHALER IH SCH ×2 (08:30→20:26)
[2021-05-24] MEDS ORDERED: MAGNESIUM SULFATE 1 GM/2 ML VIAL 2 GM in SODIUM CHLORIDE 100ML 100 ML IV ONE (09:38)
[2021-05-24] MEDS: ZOFRAN 4 MG/2 ML IVP PRN ×3 (09:48→20:38)
[2021-05-24] MEDS: K-DUR PO SCH ×4 (09:48→20:22)
[2021-05-24] MEDS: LOMOTIL PO PRN ×3 (09:48→20:21)
[2021-05-24] MEDS: PROTONIX IV IVP SCH (09:49)
[2021-05-24] MEDS ORDERED: MAGNESIUM SULFATE 1 GM/100 ML D5W 1 GM/100 ML BAG IV STA (09:51)
[2021-05-24] MEDS: SODIUM CHLORIDE 0.9%-KCL 20 MEQ 1,000 ML IV SCH ×2 (10:54→21:21)
[2021-05-24] MEDS ORDERED: MAGNESIUM SULFATE 1 GM/100 ML D5W 1 GM/100 ML BAG IV ONE (11:00)
--- NOTE | 2021-05-24 14:54 | PCM.PROG ---
Date Seen by Provider: 05/24/21 Time Seen by Provider: 10:30 Subjective: Patient complains of weakness. Still with nausea and diarrhea. Objective: Vitals: T=97.9 F, P=91, R=20, FS=692/74, SPO2=98 Appears very weak, acutely and chronically ill. HEENT: [] Neck: [] Lungs: [] CVS: [] Abdomen: []Soft, nontender. Nondistended. Extremities: [] Neurological: [] Skin: [] Lab/Tests/Diagnostic Imaging: [] (1) Acute gastroenteritis: Status: Acute Code(s): K52.9 - Noninfective gastroenteritis and colitis, unspecified SNOMED Code(s): 32448419 Assessment: To have CT abd/pelvis today. C. diff negative. Stool HOC positive. Hgb 11.[address] 2 units PRBCS. Plan: Review CT scan. Replace potassium.
--- NOTE | 2021-05-24 17:01 | CT ---
EXAM: CT ABDOMEN AND PELVIS HISTORY: Vomiting, diarrhea and abdominal tenderness. Blood in stool. Patient has a history of margarita g cancer and appendectomy. TECHNIQUE: CT abdomen and pelvis without intravenous contrast. Images were reconstructed using 5 mm section thickness. Reformations were prepared. COMPARISON: 03/11/2021 FINDINGS: Diagnostic limitations exist without including intravenous contrast enhanced images. There is a 7 mm low attenuation lesion of the anterior left hepatic lobe which is unchanged. Spleen is within toyin l limits. Gallbladder is absent. No pancreatic or adrenal pathology. Kidneys and ureters are unrem arkable. There is moderate vascular calcification which may be related to diabetic angiopathy and / or atherosclerotic disease. Nonspecific small retroperitoneal and mesenteric lymph nodes are present . There is a small to moderate paraesophageal hernia. No appendix is identified. There appears to be mild inflammatory stranding around the cecum with questionable few regional diverticula. The smal l and large bowel were otherwise unremarkable. No bowel obstruction. A uterus is present. There is a stable partially calcified left pelvic/adnexal mass measuring 2.1 cm. Normal urinary bladder. No ascites or abscess is seen. Abdominal wall is intact. The bones reveal moderately severe osteoarth ritis of the hips and moderate degenerative changes of the spine. Lung bases reveal chronic intersti tial changes and there is a thin focus of discoid atelectasis or scarring on the right. No pneumoper itoneum. IMPRESSION: 1. There appears to be mild inflammatory stranding around the cecum with questionable few regional d iverticula. This could represent mild occult diverticulitis or colitis or possibly a focus of omenta l infarction. The small and large bowel were otherwise unremarkable. No bowel obstruction. No asci joe or abscess. No free air. 2. There is a 7 mm low attenuation lesion of the anterior left hepatic lobe which is unchanged. 3. Moderate vascular calcification. 4. Small to moderate paraesophageal hernia. - - - - - All CT scans are performed using dose optimization techniques as appropriate to the performed exam an d include at least one of the following: Automated exposure control, adjustment of the mA and/or kV according t o size, and the use of iterative reconstruction technique.
[2021-05-24] MEDS: TYLENOL PO PRN (17:53)
[2021-05-24] MEDS: EFFEXOR XR PO SCH (20:21)
[2021-05-24] MEDS: CLARITIN PO SCH (20:21)
[2021-05-24] MEDS: PERCOCET 5-325 PO PRN (20:21)
[2021-05-25 05:31] LABS: BASOPHILS % (AUTO) 0.4 % (0.0-3.0); EOSINOPHILS # (AUTO) 0.8 K/ul (0.0-0.7); EOSINOPHILS % (AUTO) 10.1 % (0.0-7.0); HEMATOCRIT 33.4 % (37.0-47.0); HEMOGLOBIN 11.2 g/dl (12.0-16.0); IMMATURE GRANULOCYTE # (AUTO) 0.1 (0.0-1.0); IMMATURE GRANULOCYTE % (AUTO) 0.8 % (0.0-5.0); LYMPHOCYTES % (AUTO) 13.2 (10.0-50.0); MEAN CORPUSCULAR HEMOGLOBIN 30.4 pg (27.0-31.0); MEAN CORPUSCULAR HGB CONC 33.5 (31.8-35.4); MEAN CORPUSCULAR VOLUME 90.8 fl (81.0-99.0); MONOCYTES # (AUTO) 0.8 K/uL (0.4-2.0); MONOCYTES % (AUTO) 10.1 (0-10); NEUTROPHILS # (AUTO) 4.9 K/ul (2.0-6.9); NEUTROPHILS % (AUTO) 65.4 % (42.2-75.2); PLATELET COUNT 568 10^3/uL (140-440); RED BLOOD COUNT 3.68 10^6/ul (4.20-5.40); WHITE BLOOD COUNT 7.44 K/ul (4.6-10.2)
[2021-05-25 05:41] LABS: ALANINE AMINOTRANSFERASE 29.8 U/L (0-35); ALBUMIN 3.29 g/dL (3.5-5.0); ALKALINE PHOSPHATASE 81.7 U/L (53-141); ASPARTATE AMINO TRANSFERASE 51.1 U/L (14-36); BILIRUBIN,TOTAL 0.35 mg/dL (0.2-1.3); BLOOD UREA NITROGEN 2.2 mg/dL (7-17); CALCIUM 8.21 mg/dL (8.4-10.2); CHLORIDE 107.1 mmol/L (98-107); CREATININE 0.61 mg/dL (0.60-1.30); GLUCOSE 79.5 mg/dL (74-106); TOTAL PROTEIN 6.21 g/dL (6.3-8.2)
[2021-05-25] MEDS: LOMOTIL PO PRN (06:05)
[2021-05-25] MEDS: SODIUM CHLORIDE 0.9%-KCL 20 MEQ 1,000 ML IV SCH (07:06)
--- NOTE | 2021-05-25 08:13 | PCM.PROG ---
Date Seen by Provider: 05/25/21 Time Seen by Provider: 08:09 Subjective: pt improved Objective: Vitals: T=99.6 F, P=103, R=18, CC=396/73, SPO2=98 HEENT: []conjunctiva clear Neck: []supple Lungs: [] clear CVS: []RRR Abdomen: []soft and nontender Extremities: []jovanny Neurological: []alert and oriented Skin: []warm and dry Lab/Tests/Diagnostic Imaging: [] Hb 11.2, Mg 1.7 (1) Acute gastroenteritis: Status: Acute Code(s): K52.9 - Noninfective gastroenteritis and colitis, unspecified SNOMED Code(s): 62379721 Plan: s/p rbc transfusion on Monday, hemoccult +stool, will transfer pt to GI for evaluation, continue iv ns 100cc/hr w/ K+ 20meq treating +rotavirus hx dnr, home oxygen, stage 4 lung cancer care to Dr Wakefield at shift change if awaiting transfer
[2021-05-25] MEDS: SYMBICORT 160-4.5 MCG INHALER IH SCH (10:04)
[2021-05-25] MEDS: MULTIVITAMIN TABLET PO SCH (10:05)
[2021-05-25] MEDS: PRAVACHOL PO SCH (10:05)
[2021-05-25] MEDS: K-DUR PO SCH (10:05)
[2021-05-25] MEDS: LOTENSIN PO SCH (10:05)
[2021-05-25] MEDS: NORVASC PO SCH (10:05)
[2021-05-25] MEDS: TOPROL XL PO SCH (10:06)
[2021-05-25] MEDS: FERROUS SULFATE PO SCH (10:06)
[2021-05-25] MEDS: PROTONIX IV IVP SCH (10:06)
[2021-05-25] MEDS: FOLIC ACID PO SCH (10:06)
[2021-05-25] MEDS: ZOFRAN 4 MG/2 ML IVP PRN (10:21)
[2021-05-25] MEDS: IMODIUM PO PRN (10:22)
[2021-05-25 14:03] VITALS: BP 145/87; TEMP 98
--- NOTE | 2021-05-25 14:53 | PCM.DC ---
Final Diagnosis: gi bleed, anemia, lung cancer, rotavirus Physical Exam Appearance: Well-appearing Ill-appearing: None Pain Distress: None Eyes: Conjunctiva clear ENT: Oropharynx normal Neck: Supple Respiratory: Airway patent Cardiovascular: RRR GI/: Soft and Nontender Musculoskeletal: ROM intact Skin: Warm and Dry Neurological: Alert and Oriented Psychiatric: Affect appropriate (1) Acute gastroenteritis: Status: Acute Code(s): K52.9 - Noninfective gastroenteritis and colitis, unspecified SNOMED Code(s): 43001141 Medications at Discharge: Ambulatory Orders Medication Instructions Recorded aspirin 81 mg chewable tablet 81 mg PO DAILY 07/16/13 (Aspirin Low-Strength) multivitamin (Daily Multi-Vitamin) 1 ea PO DAILY 04/26/16 ondansetron 4 mg disintegrating 4 mg PO Q6H PRN #10 tab 04/22/19 tablet Fluzone Quad [id number] (PF) 60 mcg 0.5 ml IM ONCE #1 ml NS 11/08/19 (15 mcg x 4)/0.5 mL IM syringe (flu vacc [id number] 6mos up(PF)) Prevnar 13 (PF) 0.5 mL 0.5 ml IM ONCE #0.5 ml NS 11/08/19 intramuscular syringe (pneumoc 13-kin conj-dip cr(PF)) alprazolam 0.5 mg tablet 0.5 mg PO QHS PRN 09/16/20 cetirizine 10 mg tablet 10 mg PO QHS tab 09/16/20 dexamethasone 4 mg tablet 4 mg PO QDAY 09/16/20 docusate sodium 100 mg capsule 100 mg PO QDAY PRN MDD 100 09/16/20 hydroxyzine HCl 25 mg tablet 25 mg PO QID PRN #120 tab 09/16/20 prochlorperazine maleate 10 mg 10 mg PO Q6H PRN 09/16/20 tablet amlodipine 10 mg tablet 10 mg PO DAILY 11/12/20 benazepril 40 mg tablet 40 mg PO DAILY 11/12/20 folic acid 1 mg tablet 1 mg PO DAILY 11/12/20 metoprolol succinate 100 mg 50 mg PO BID 11/12/20 tablet,extended release 24 hr pravastatin 40 mg tablet 40 mg PO DAILY 11/12/20 venlafaxine 75 mg capsule,extended 75 mg PO BEDTIME 11/12/20 release 24 hr oxycodone-acetaminophen 5 mg-325 1 tab PO TID PRN 11/15/20 mg tablet budesonide-formoterol HFA 160 See Rx Instructions .ROUTE 04/12/21 mcg-4.5 mcg/actuation aerosol .COMPLEX #10.2 blister inhaler (Symbicort) ferrous sulfate 325 mg (65 mg See Rx Instructions .ROUTE 04/12/21 iron) tablet (FeroSul) .COMPLEX #60 tab triamcinolone acetonide 0.1 % 1 applic TOPICAL DAILY PRN 05/22/21 topical ointment Lab/Diagnostics: Hb post transfusion day 2 is 11.2, admission Hb 6.6, +rotavirus diarrhea Education Provided to Patient and Family: none Follow-ups: transfer to [facility], accepted by Dr Sanches Discharge Disposition: Transfer Hospital Course: improved, but weak Plan: transfer for GI Bleed evaluation
[2021-05-25] MEDS ORDERED: SODIUM CHLORIDE 1,000 ML IV SCH (15:45)
== END 2021-05-25 15:55 | disposition short-term general hospital (02) | DRG 378 ==
LOC: MEDSURG A 11:28 → ED 11:28 → OBSVTOIN 16:09 → MEDSURG A 16:21
PROVIDERS: ADMIT Emergency Medicine; ATTEND Emergency Medicine Emergency Medical Services
DX: A08.0 Rotaviral enteritis; Z99.81 Dependence on supplemental oxygen; D64.9 Anemia, unspecified; E86.0 Dehydration; Z51.81 Encounter for therapeutic drug level monitoring; C34.90 Malignant neoplasm of unspecified part of unspecified bronchus or lung; K92.2 Gastrointestinal hemorrhage, unspecified; Z79.899 Other long term (current) drug therapy; R11.2 Nausea with vomiting, unspecified; K52.9 Noninfective gastroenteritis and colitis, unspecified; Z20.822 Contact with and (suspected) exposure to COVID-19; Z92.21 Personal history of antineoplastic chemotherapy

== ENCOUNTER 2021-08-05 05:43 | Inpatient (IN) ==
--- NOTE | 2021-08-05 06:10 | ED.PDOC ---
General <VIOLETTE MENDEZ MD - Last Filed: 08/05/21 06:43> ED Provider: Dr. VIOLETTE MENDEZ Chief Complaint: Shortness of Air Time Seen by Provider: 08/05/21 06:10 Mode of Arrival: Wheelchair Information Source: Patient Primary Care Provider: PERLA OLIVERA APRN Sepsis Protocol: For patient's 13 years and over: Temp is 96.8 and below OR 101 and greater Pulse >90 BPM Resp >20/minute Acutely Altered Mental Status Are patient's symptoms suggestive of a new infection, such as: -Pneumonia -Skin, Soft Tissue -Endocarditis -UTI -Bone, Joint Infection -Implantable Device -Acute Abdominal Infection -Wound Infection -Meningitis -Blood Stream Catheter Infection -Unknown <NELLY LE MD - Last Filed: 08/05/21 10:26> Stated Complaint: pt care assumed from Dr Mendez, pt w/ productive cough and shortness of breath getting worse for a few days, no chest pain, no fever, hx copd and home oxygen, hx lung cancer Nursing and Triage Documentation Reviewed and Agree: Yes Does patient meet sepsis criteria?: No System Inflammatory Response Syndrome: Not Applicable Respiratory Complaint Exam <VIOLETTE MENDEZ MD - Last Filed: 08/05/21 06:43> Shortness of Air Complaint/Exam Onset/Duration: 3 d Symptoms Are: Still present Timing: Constant Initial Severity: Moderate Current Severity: Moderate Character: Reports Dyspnea at rest and Dyspnea on exertion Aggravating: Reports Deep breaths Alleviating: Reports Bronchodilators and Oxygen Associated Signs and Symptoms: Reports Cough and Wheezing Related History: Reports Similar episode History of Healthcare-Acquired Pneumonia: No Pulmonary Embolism Risk Factors: Reports Malignancy Cardiac Risk Factors: Reports Family History Pseudomonas Risk Factors: Reports None Tuberculosis Risk Factors: Reports None Home Oxygen Use: Yes Recent Stress Test: No Recent Echo/LV Function: No Respiratory Distress: Moderate Stridor Present: No Tracheal Deviation: No Subcutaneous Emphysema: No Accessory Muscle Use: Yes Retractions: Not Present Diminished Breath Sounds: Yes Prolonged Expiratory Phase: Yes Unable to Speak Full Sentences: No Fatigue: Yes Leg Swelling: No Yolie's Sign Present: No Grunting Respirations: No Kussmaul Respirations: No Review of Systems <VIOLETTE MENDEZ MD - Last Filed: 08/05/21 06:43> Review Of Systems Constitutional: Reports Malaise and Weakness Eyes: Reports No symptoms Ears, Nose, Mouth, Throat: Reports No symptoms Respiratory: Reports Cough, Short of air and Wheezing GI: Reports No symptoms : Reports No symptoms Musculoskeletal: Reports No symptoms Skin: Reports No symptoms Neurological: Reports No symptoms Endocrine: Reports No symptoms Hematologic/Lymphatic: Reports No symptoms <NELLY LE MD - Last Filed: 08/05/21 10:26> Review Of Systems All Other Systems: Other PFSH <VIOLETTE MENDEZ MD - Last Filed: 08/05/21 06:43> Medical History Anemia Asthma Chronic obstructive pulmonary disease COVID-19 Defect of endplate of vertebra Depression Fatigue Folliculitis Gall bladder disease Hyperlipidemia Hypertension Hypertension (01/15/14) Hypokalemia Hypothyroidism Influenza vaccination administered at current visit Lung cancer Nausea and vomiting Need for vaccination against Streptococcus pneumoniae using pneumococcal conjugate vaccine 13 On antineoplastic chemotherapy Osteoporosis Stage 4 lung cancer Family History Other No known health problems Social History Smoking and tobacco status: Former smoker Tobacco: How many years used: 17 Second hand smoke exposure: Yes Alcohol intake: current Substance use type: does not use Eliza/catholic: church Special eliza needs: No Agree to transfusion: Yes Adopted: No Caregiver/support person: Yes Household members: spouse Housing: house Lives independently: Yes Highest education level completed: 9th grade Financial difficulty paying for basics: not applicable service: No Current occupational status: unemployed Current occupational exposures/hazards: No Pets and animals: No Leisure activites: fishing History of recent travel: No Do you think of yourself as: straight/heterosexual Current gender identity: female Seatbelt use: always Helmet use: No Drives intoxicated or rides with intoxicated commercial front load driver: No Water heater temperature set < 120 degrees: Yes Working smoke detector in home: Yes Fire extinguisher in home: Yes Carbon monoxide detector in home: No Firearms in home: Yes Firearms unloaded and locked: Yes Surgical History gall bladder History of tubal ligation Normal esophagogastroduodenoscopy (EGD) Status post appendectomy Status post cholecystectomy (03/15/17) Female Reproductive History Menstrual Hx Hysterectomy: No Hx Tubal Ligation: Yes Physical Exam <VIOLETTE MENDEZ MD - Last Filed: 08/05/21 06:43> Physical Exam Appearance: Reports Ill-appearing Ill-appearing: Moderate Pain Distress: Mild Eyes: Reports MILLA Neck: Supple Respiratory: Reports Breath sounds diminished, Rhonchi and Wheezes Cardiovascular: Reports RRR GI/: Reports Soft and Nontender Musculoskeletal: Reports Normal strength and ROM intact Skin: Reports Warm and Dry Neurological: Reports Sensation intact and Motor intact Psychiatric: Reports Affect appropriate and Mood appropriate <NELLY LE MD - Last Filed: 08/05/21 10:26> Physical Exam ENT: Reports Oropharynx normal <NELLY LE MD - Last Filed: 08/05/21 10:26> Radiology Interpretation Radiology Interpretation By: Radiologist Exam Interpreted: CT Scan Xray Comments: no PE, +bilateral pneumonia and lung nodules Radiology Interpretation By: Radiologist Exam Interpreted: CXR Xray Comments: atelectasis EKG Interpretation Time of EKG #1: 10:23 Rate: Tachy Rhythm: Sinus Interpretation: no stemi Physician Notification <VIOLETTE MENDEZ MD - Last Filed: 08/05/21 06:43> Case Discussed Physician Notified: Dr. Le turn over Time of Notification: 07:00 <NELLY LE MD - Last Filed: 08/05/21 10:26> Critical Care Note Total Critical Care Time (mins): 0 Course <VIOLETTE MENDEZ MD - Last Filed: 08/05/21 06:43> Course Hematology/Chemistry: 08/05/21 07:03 08/05/21 07:03 Orders, Labs, Meds: Lab Review 08/05/21 08/05/21 08/05/21 06:47 07:03 07:03 WBC 10.36 H RBC 3.05 L Hgb 10.0 L Hct 30.6 L MCV 100.3 H MCH 32.8 H MCHC 32.7 RDW Coeff of Taylor 18.9 H Plt Count 485 H Immature Gran % (Auto) 0.4 Neut % (Auto) 75.8 H Lymph % (Auto) 12.1 [place] % (Auto) 10.1 H Eos % (Auto) 1.3 Baso % (Auto) 0.3 Neut # (Auto) 7.9 H Lymph # (Auto) 1.3 [place] # (Auto) 1.1 Eos # (Auto) 0.1 Baso # (Auto) 0.0 Immature Gran # (Auto) 0.0 Puncture Site L rad Base Excess 5.7 H O2 Saturation 96.2 ABG pH 7.52 H* ABG pCO2 35.0 ABG pO2 74.0 L ABG HCO3 28.6 H ABG Total CO2 29.7 H William Test Y Hemoglobin 2.1 H Oxyhemoglobin 92.6 L Carboxyhemoglobin 1.5 Total Hemoglobin 10.3 L O2 Delivery Device Cannula Oxygen Liter Flow 2.00 Sodium 133.3 L Potassium 3.05 L Chloride 97.2 L Carbon Dioxide 26.7 Anion Gap 12.45 BUN 8.3 Creatinine 0.60 Estimated GFR (MDRD) 102.00 BUN/Creatinine Ratio 13.83 Glucose 149.7 H Lactic Acid Calcium 9.22 Total Bilirubin 0.37 AST 44.9 H ALT 35.7 H Alkaline Phosphatase 75.2 Troponin I 0.014 NT-Pro-B Natriuret Pep Total Protein 7.23 Albumin 4.23 Globulin 3.00 Albumin/Globulin Ratio 1.41 D-Dimer 08/05/21 08/05/21 08/05/21 07:03 07:03 07:16 WBC RBC Hgb Hct MCV MCH MCHC RDW Coeff of Taylor Plt Count Immature Gran % (Auto) Neut % (Auto) Lymph % (Auto) [place] % (Auto) Eos % (Auto) Baso % (Auto) Neut # (Auto) Lymph # (Auto) [place] # (Auto) Eos # (Auto) Baso # (Auto) Immature Gran # (Auto) Puncture Site Base Excess O2 Saturation ABG pH ABG pCO2 ABG pO2 ABG HCO3 ABG Total CO2 William Test Hemoglobin Oxyhemoglobin Carboxyhemoglobin Total Hemoglobin O2 Delivery Device Oxygen Liter Flow Sodium Potassium Chloride Carbon Dioxide Anion Gap BUN Creatinine Estimated GFR (MDRD) BUN/Creatinine Ratio Glucose Lactic Acid 0.84 Calcium Total Bilirubin AST ALT Alkaline Phosphatase Troponin I NT-Pro-B Natriuret Pep 988.000 H Total Protein Albumin Globulin Albumin/Globulin Ratio D-Dimer 1061.41 H Orders Category Date Time Status ADMIT PATIENT INPATIENT .TO [facility] (MONITORED BED) ADMISSION 08/05/21 10:12 Ordered ABG DRAW REQUEST Stat CARDIO 08/05/21 06:38 Completed EKG-(ED ONLY) Stat CARDIO 08/05/21 06:37 Completed EKG-(IP & OP ONLY) DAILY CARDIO 08/06/21 06:00 Ordered EKG-(IP & OP ONLY) DAILY CARDIO 08/07/21 06:00 Ordered OXYGEN Routine CARDIO 08/05/21 10:14 Ordered ACTIVITY .BR with BRP CARE 08/05/21 10:12 Ordered CASE MANAGEMENT CONSULT ONCE CARE 08/05/21 10:13 Ordered INTAKE & OUTPUT Q8HR CARE 08/05/21 10:12 Ordered IP: INSERT SALINE LOCK ONCE CARE 08/05/21 10:12 Ordered NPO REMINDER: IMAGING ONCE CARE 08/05/21 08:16 Completed TELEMETRY MONITORING TELE CARE 08/05/21 10:13 Ordered VITAL SIGNS Q4HR CARE 08/05/21 10:14 Ordered VTE PREVENTION .JOSUE On AM/Off PM CARE 08/05/21 10:12 Ordered CARDIAC DIET DIETARY 08/05/21 Lunch Ordered ABG COOX Stat LAB 08/05/21 06:47 Completed BLOOD CULTURE Stat LAB 08/05/21 10:09 Ordered CBC W/ AUTO DIFF DAILY@0600 LAB 08/06/21 06:00 Ordered CBC W/ AUTO DIFF DAILY@0600 LAB 08/07/21 06:00 Ordered CBC W/ AUTO DIFF Stat LAB 08/05/21 07:03 Completed COMPREHENSIVE METABOLIC PANEL DAILY@0600 LAB 08/06/21 06:00 Ordered COMPREHENSIVE METABOLIC PANEL DAILY@0600 LAB 08/07/21 06:00 Ordered COMPREHENSIVE METABOLIC PANEL Stat LAB 08/05/21 07:03 Completed D-DIMER Stat LAB 08/05/21 07:03 Completed LACTIC ACID Stat LAB 08/05/21 07:16 Completed NT-PROBNP Stat LAB 08/05/21 07:03 Completed SARS COV-2 RNA RAPID COLLEEN Stat LAB 08/05/21 Ordered TROPONIN I Q8H LAB 08/05/21 16:15 Ordered TROPONIN I Q8H LAB 08/06/21 00:15 Ordered TROPONIN I Stat LAB 08/05/21 07:03 Completed 750 mg IV Daily [facility] MEDS 08/06/21 09:00 Ordered Levofloxacin/D5w [Levaquin 750 mg/150 ml D5w] 750 mg in 150 ml IV DAILY 750 mg IV Daily [facility] MEDS 08/06/21 09:00 Ordered Levofloxacin/D5w [Levaquin 750 mg/150 ml D5w] 750 mg in 150 ml IV DAILY Acetaminophen [Tylenol] MEDS 08/05/21 10:12 Ordered 650 mg PO Q4H PRN Amlodipine Besylate [Norvasc] MEDS 08/06/21 09:00 Ordered 10 mg PO DAILY Ipratropium/Albuterol Neb [Duoneb] MEDS 08/05/21 06:35 Discontinued 3 ml NEB ONCE ONE Methylprednisolone Sod Succ/Pf [Solu-Medrol 125 mg] MEDS 08/05/21 06:37 Discontinued 125 mg IVP ONCE ONE Methylprednisolone [Medrol Dosepak] MEDS 08/06/21 09:00 Ordered 4 mg PO DAILY Metoprolol Succinate [Toprol Xl] MEDS 08/05/21 21:00 Ordered 50 mg PO BID Omeprazole [Prilosec] MEDS 08/05/21 10:30 Ordered 40 mg PO QDAY Potassium Chloride [Potassium Chl 10% Oral Camila] MEDS 08/05/21 10:09 Once 20 meq PO ONCE ONE Potassium Chloride in 0.9%NaCl [Sodium Chloride 0.9%- MEDS 08/05/21 10:30 Ordered KCl 20 Meq] 1,000 ml IV 75 mls/hr Tobramycin Sulfate Opth 0.3% [Tobrex 0.3%] MEDS 08/05/21 10:30 Ordered 2 drop RIGHTEYE Q4H RESUSCITATION STATUS Routine OTHERS 08/05/21 10:12 Ordered CHEST, 1V AP ONLY Stat RADS 08/05/21 06:[address] CHEST PE PROTOCOL Stat RADS 08/05/21 08:16 Completed Medications Generic Name Dose Route Start Last Admin Trade Name Freq PRN Reason Stop Dose Admin Levofloxacin/Dextrose 750 mg in 150 mls @ 100 mls/hr 08/05/21 10:30 Levaquin 750 Mg/150 Ml D5w IV 08/08/21 10:29 DAILY DAVID Discontinued Medications Generic Name Dose Route Start Last Admin Trade Name Freq PRN Reason Stop Dose Admin Albuterol/Ipratropium 3 ml 08/05/21 06:35 08/05/21 07:15 Ipratropium/Albuterol Vial.Neb NEB 08/05/21 06:36 3 ml ONCE ONE Administration Methylprednisolone Sodium Succinate 125 mg 08/05/21 06:37 08/05/21 06:44 Methylprednisolone Sod Succ/Pf 125 Mg/2 Ml Vial IVP 08/05/21 06:38 125 mg ONCE ONE Administration Potassium Chloride 20 meq 08/05/21 10:09 Potassium Chloride 40 Meq/30 Ml Cup PO 08/05/21 10:10 ONCE ONE Vital Signs: Temp Pulse Resp BP Pulse Ox 08/05/21 05:43 99.1 F 126 H 24 160/84 H 95 <NELLY LE MD - Last Filed: 08/05/21 10:26> Course Orders, Labs, Meds: Lab Review 08/05/21 08/05/21 08/05/21 06:47 07:03 07:03 WBC 10.36 H RBC 3.05 L Hgb 10.0 L Hct 30.6 L MCV 100.3 H MCH 32.8 H MCHC 32.7 RDW Coeff of Taylor 18.9 H Plt Count 485 H Immature Gran % (Auto) 0.4 Neut % (Auto) 75.8 H Lymph % (Auto) 12.1 [place] % (Auto) 10.1 H Eos % (Auto) 1.3 Baso % (Auto) 0.3 Neut # (Auto) 7.9 H Lymph # (Auto) 1.3 [place] # (Auto) 1.1 Eos # (Auto) 0.1 Baso # (Auto) 0.0 Immature Gran # (Auto) 0.0 Puncture Site L rad Base Excess 5.7 H O2 Saturation 96.2 ABG pH 7.52 H* ABG pCO2 35.0 ABG pO2 74.0 L ABG HCO3 28.6 H ABG Total CO2 29.7 H William Test Y Hemoglobin 2.1 H Oxyhemoglobin 92.6 L Carboxyhemoglobin 1.5 Total Hemoglobin 10.3 L O2 Delivery Device Cannula Oxygen Liter Flow 2.00 Sodium 133.3 L Potassium 3.05 L Chloride 97.2 L Carbon Dioxide 26.7 Anion Gap 12.45 BUN 8.3 Creatinine 0.60 Estimated GFR (MDRD) 102.00 BUN/Creatinine Ratio 13.83 Glucose 149.7 H Lactic Acid Calcium 9.22 Total Bilirubin 0.37 AST 44.9 H ALT 35.7 H Alkaline Phosphatase 75.2 Troponin I 0.014 NT-Pro-B Natriuret Pep Total Protein 7.23 Albumin 4.23 Globulin 3.00 Albumin/Globulin Ratio 1.41 D-Dimer 08/05/21 08/05/21 08/05/21 07:03 07:03 07:16 WBC RBC Hgb Hct MCV MCH MCHC RDW Coeff of Taylor Plt Count Immature Gran % (Auto) Neut % (Auto) Lymph % (Auto) [place] % (Auto) Eos % (Auto) Baso % (Auto) Neut # (Auto) Lymph # (Auto) [place] # (Auto) Eos # (Auto) Baso # (Auto) Immature Gran # (Auto) Puncture Site Base Excess O2 Saturation ABG pH ABG pCO2 ABG pO2 ABG HCO3 ABG Total CO2 William Test Hemoglobin Oxyhemoglobin Carboxyhemoglobin Total Hemoglobin O2 Delivery Device Oxygen Liter Flow Sodium Potassium Chloride Carbon Dioxide Anion Gap BUN Creatinine Estimated GFR (MDRD) BUN/Creatinine Ratio Glucose Lactic Acid 0.84 Calcium Total Bilirubin AST ALT Alkaline Phosphatase Troponin I NT-Pro-B Natriuret Pep 988.000 H Total Protein Albumin Globulin Albumin/Globulin Ratio D-Dimer 1061.41 H Orders Category Date Time Status ADMIT PATIENT INPATIENT .TO [facility] (MONITORED BED) ADMISSION 08/05/21 10:12 Ordered ABG DRAW REQUEST Stat CARDIO 08/05/21 06:38 Completed EKG-(ED ONLY) Stat CARDIO 08/05/21 06:37 Completed EKG-(IP & OP ONLY) DAILY CARDIO 08/06/21 06:00 Ordered EKG-(IP & OP ONLY) DAILY CARDIO 08/07/21 06:00 Ordered OXYGEN Routine CARDIO 08/05/21 10:14 Ordered ACTIVITY .BR with BRP CARE 08/05/21 10:12 Ordered CASE MANAGEMENT CONSULT ONCE CARE 08/05/21 10:13 Ordered INTAKE & OUTPUT Q8HR CARE 08/05/21 10:12 Ordered IP: INSERT SALINE LOCK ONCE CARE 08/05/21 10:12 Ordered NPO REMINDER: IMAGING ONCE CARE 08/05/21 08:16 Completed TELEMETRY MONITORING TELE CARE 08/05/21 10:13 Ordered VITAL SIGNS Q4HR CARE 08/05/21 10:14 Ordered VTE PREVENTION .JOSUE On AM/Off PM CARE 08/05/21 10:12 Ordered CARDIAC DIET DIETARY 08/05/21 Lunch Ordered ABG COOX Stat LAB 08/05/21 06:47 Completed BLOOD CULTURE Stat LAB 08/05/21 10:09 Ordered CBC W/ AUTO DIFF DAILY@0600 LAB 08/06/21 06:00 Ordered CBC W/ AUTO DIFF DAILY@0600 LAB 08/07/21 06:00 Ordered CBC W/ AUTO DIFF Stat LAB 08/05/21 07:03 Completed COMPREHENSIVE METABOLIC PANEL DAILY@0600 LAB 08/06/21 06:00 Ordered COMPREHENSIVE METABOLIC PANEL DAILY@0600 LAB 08/07/21 06:00 Ordered COMPREHENSIVE METABOLIC PANEL Stat LAB 08/05/21 07:03 Completed D-DIMER Stat LAB 08/05/21 07:03 Completed LACTIC ACID Stat LAB 08/05/21 07:16 Completed NT-PROBNP Stat LAB 08/05/21 07:03 Completed SARS COV-2 RNA RAPID COLLEEN Stat LAB 08/05/21 Ordered TROPONIN I Q8H LAB 08/05/21 16:15 Ordered TROPONIN I Q8H LAB 08/06/21 00:15 Ordered TROPONIN I Stat LAB 08/05/21 07:03 Completed 750 mg IV Daily [facility] MEDS 08/06/21 09:00 Ordered Levofloxacin/D5w [Levaquin 750 mg/150 ml D5w] 750 mg in 150 ml IV DAILY 750 mg IV Daily [facility] MEDS 08/06/21 09:00 Ordered Levofloxacin/D5w [Levaquin 750 mg/150 ml D5w] 750 mg in 150 ml IV DAILY Acetaminophen [Tylenol] MEDS 08/05/21 10:12 Ordered 650 mg PO Q4H PRN Amlodipine Besylate [Norvasc] MEDS 08/06/21 09:00 Ordered 10 mg PO DAILY Ipratropium/Albuterol Neb [Duoneb] MEDS 08/05/21 06:35 Discontinued 3 ml NEB ONCE ONE Methylprednisolone Sod Succ/Pf [Solu-Medrol 125 mg] MEDS 08/05/21 06:37 Discontinued 125 mg IVP ONCE ONE Methylprednisolone [Medrol Dosepak] MEDS 08/06/21 09:00 Ordered 4 mg PO DAILY Metoprolol Succinate [Toprol Xl] MEDS 08/05/21 21:00 Ordered 50 mg PO BID Omeprazole [Prilosec] MEDS 08/05/21 10:30 Ordered 40 mg PO QDAY Potassium Chloride [Potassium Chl 10% Oral Camila] MEDS 08/05/21 10:09 Once 20 meq PO ONCE ONE Potassium Chloride in 0.9%NaCl [Sodium Chloride 0.9%- MEDS 08/05/21 10:30 Ordered KCl 20 Meq] 1,000 ml IV 75 mls/hr Tobramycin Sulfate Opth 0.3% [Tobrex 0.3%] MEDS 08/05/21 10:30 Ordered 2 drop RIGHTEYE Q4H RESUSCITATION STATUS Routine OTHERS 08/05/21 10:12 Ordered CHEST, 1V AP ONLY Stat RADS 08/05/21 06:[address] CHEST PE PROTOCOL Stat RADS 08/05/21 08:16 Completed Medications Generic Name Dose Route Start Last Admin Trade Name Freq PRN Reason Stop Dose Admin Levofloxacin/Dextrose 750 mg in 150 mls @ 100 mls/hr 08/05/21 10:30 Levaquin 750 Mg/150 Ml D5w IV 08/08/21 10:29 DAILY DAVID Discontinued Medications Generic Name Dose Route Start Last Admin Trade Name Freq PRN Reason Stop Dose Admin Albuterol/Ipratropium 3 ml 08/05/21 06:35 08/05/21 07:15 Ipratropium/Albuterol Vial.Neb NEB 08/05/21 06:36 3 ml ONCE ONE Administration Methylprednisolone Sodium Succinate 125 mg 08/05/21 06:37 08/05/21 06:44 Methylprednisolone Sod Succ/Pf 125 Mg/2 Ml Vial IVP 08/05/21 06:38 125 mg ONCE ONE Administration Potassium Chloride 20 meq 08/05/21 10:09 Potassium Chloride 40 Meq/30 Ml Cup PO 08/05/21 10:10 ONCE ONE Vital Signs: Temp Pulse Resp BP Pulse Ox 08/05/21 05:43 99.1 F 126 H 24 160/84 H 95 Discharge Plan Discharge Patient Disposition: ADMITTED INPATIENT Discharge Problem: Hypokalemia, Pneumonia, COPD exacerbation Prescriptions: No Action ferrous sulfate [FeroSul] 325 mg (65 mg iron) tablet See Rx Instructions .ROUTE .COMPLEX Qty: 60 0RF Dose Instruction: TAKE ONE TABLET TWICE DAILY Rx Instructions: TAKE ONE TABLET TWICE DAILY albuterol sulfate 90 mcg/actuation HFA aerosol inhaler 2 puff inhalation Q6H PRN (Reason: shortness of breath or wheezing) Qty: 8.5 0RF methylprednisolone [Medrol (Jordy)] 4 mg tablets,dose pack 4 mg PO DAILY Qty: 21 0RF amlodipine 10 mg tablet 10 mg PO DAILY 0RF benazepril 40 mg tablet 40 mg PO DAILY 0RF venlafaxine 75 mg capsule,extended release 24hr 75 mg PO BEDTIME 0RF pravastatin 40 mg tablet 40 mg PO DAILY 0RF Rx Instructions: TAKE ONE TABLET BY MOUTH DAILY metoprolol succinate 100 mg tablet extended release 24 hr 50 mg PO BID 0RF Rx Instructions: TALE ONE HALF (1/2) TABLET TWICE DAILY GENERIC FOR TOPROL XL NEEDS APPT folic acid 1 mg Tablet 1 mg PO DAILY 0RF methylprednisolone [Medrol (Jordy)] 4 mg tablets,dose pack See Rx Instructions .ROUTE .COMPLEX Qty: 21 0RF Rx Instructions: orally per package directions ipratropium-albuterol 0.5 mg-3 mg(2.5 mg base)/3 mL solution for nebulization 3 ml inhalation Q4-6H PRN (Reason: shortness of breath or wheezing) Qty: 90 1RF azithromycin [Zithromax Z-Jordy] 250 mg tablet See Rx Instructions .ROUTE .COMPLEX Qty: 6 0RF Rx Instructions: For 250 mg dose pack: take 500 mg today (day 1), then 250 mg for 4 days (days 2-5) alprazolam 0.5 mg tablet 0.5 mg PO QHS PRN (Reason: Anxiety) 0RF albuterol sulfate 90 mcg/actuation HFA aerosol inhaler 2 puff inhalation QID Qty: 8.5 2RF budesonide-formoterol [Symbicort] 160-4.5 mcg/actuation HFA aerosol inhaler 2 puff inhalation BID Qty: 10.2 2RF tobramycin 0.3 % drops 2 drp RIGHTEYE Q4H Qty: 5 0RF Rx Instructions: instill 2 drops every hour until improvement (then reduce prior to discontinuation). omeprazole 20 mg capsule,delayed release(DR/EC) 40 mg PO QDAY 0RF ED Provider: NELLY LE Condition: Stable <VIOLETTE MENDEZ MD - Last Filed: 08/05/21 06:43> Physician Progress Note: [] <NELLY LE MD - Last Filed: 08/05/21 10:26> Physician Progress Note: pt admitted for copd and pneumonia and low potassium []
[2021-08-05] MEDS ORDERED: DUONEB NEB ONE ×2 (06:35→11:45)
[2021-08-05] MEDS ORDERED: SOLU-MEDROL 125 MG IVP ONE (06:37)
[2021-08-05 07:04] LABS: ABG O2 HGB 92.6 % (95-100); BEecf 5.7 (-2.0-3.0); COHb 1.5 (0.5-1.5); HCO3 28.6 (21-28); MetHb 2.1 (0-1.5); TCO2 29.7 (19-24); sO2 96.2 % (94-98); tHb 10.3 g/dl (11.7-17.4)
[2021-08-05 07:06] LABS: ABG PH 7.52 (7.35-7.45)
[2021-08-05 07:11] LABS: BASOPHILS % (AUTO) 0.3 % (0.0-3.0); EOSINOPHILS # (AUTO) 0.1 K/ul (0.0-0.7); EOSINOPHILS % (AUTO) 1.3 % (0.0-7.0); HEMATOCRIT 30.6 % (37.0-47.0); IMMATURE GRANULOCYTE % (AUTO) 0.4 % (0.0-5.0); LYMPHOCYTES # (AUTO) 1.3 K/uL (0.60-3.4); LYMPHOCYTES % (AUTO) 12.1 (10.0-50.0); MEAN CORPUSCULAR HEMOGLOBIN 32.8 pg (27.0-31.0); MEAN CORPUSCULAR HGB CONC 32.7 (31.8-35.4); MEAN CORPUSCULAR VOLUME 100.3 fl (81.0-99.0); MONOCYTES # (AUTO) 1.1 K/uL (0.4-2.0); MONOCYTES % (AUTO) 10.1 (0-10); NEUTROPHILS # (AUTO) 7.9 K/ul (2.0-6.9); NEUTROPHILS % (AUTO) 75.8 % (42.2-75.2); PLATELET COUNT 485 10^3/uL (140-440); RDW COEFFICIENT OF VARIATION 18.9 % (11.6-14.8); RED BLOOD COUNT 3.05 10^6/ul (4.20-5.40); WHITE BLOOD COUNT 10.36 K/ul (4.6-10.2)
[2021-08-05 07:27] LABS: ALANINE AMINOTRANSFERASE 35.7 U/L (0-35); ALBUMIN 4.23 g/dL (3.5-5.0); ALKALINE PHOSPHATASE 75.2 U/L (53-141); ASPARTATE AMINO TRANSFERASE 44.9 U/L (14-36); BILIRUBIN,TOTAL 0.37 mg/dL (0.2-1.3); BLOOD UREA NITROGEN 8.3 mg/dL (7-17); CALCIUM 9.22 mg/dL (8.4-10.2); CARBON DIOXIDE 26.7 mmol/L (22-30.0); CHLORIDE 97.2 mmol/L (98-107); CREATININE 0.6 mg/dL (0.60-1.30); GLUCOSE 149.7 mg/dL (74-106); POTASSIUM 3.05 mmol/L (3.5-5.1); SODIUM 133.3 mmol/L (134.5-145); TOTAL PROTEIN 7.23 g/dL (6.3-8.2)
--- NOTE | 2021-08-05 07:36 | DI ---
EXAM: Chest one view HISTORY: Chronic obstructive pulmonary disease COMPARISON: 07/01/2021 TECHNIQUE: Single view of the chest was performed FINDINGS: Left chest port terminates in the superior vena cava. Blunting left costophrenic angle no visible pneumothorax. The emphysematous change. Linear opacities in the lower lung lacy likely a telectasis and/or scarring. The heart is normal in size. The mediastinal contour is normal. There are no acute abnormalities of the bones. IMPRESSION: Emphysema. Linear opacities in the lower lung lacy, likely atelectasis and/or scarrin g. Blunting of the left costophrenic angle may represent for point. Trace pleural effusion.
[2021-08-05 07:39] LABS: TROPONIN I 0.014 ng/ml (0.0000-0.120)
--- NOTE | 2021-08-05 10:04 | CT ---
EXAM: CT Angiogram Chest. HISTORY: Chronic obstructive pulmonary disease. Elevated D-dimer. COMPARISON: Radiograph earlier the same day. CT 05/07/[address] CT examin ations dating to 01/31/2019. TECHNIQUE: Multiple axial images of the chest were obtained following intravenous administration of 100 mL Omnipaque 350, low osmolar. Images were reformatted in the sagittal and coronal plane. 3-D a nd maximum intensity projection reformatted images were created on an independent workstation. FINDINGS: Numerous mediastinal lymph nodes present measuring up to 0.9 cm maximum short axis. Promi nent hilar lymph nodes which also measure up to 0.9 cm short axis. These have increased in size and number. Heart size is normal. There is a small amount of pericardial fluid. There is no aortic dissection. Atherosclerotic calcifications present in the aorta and coronary arteries. No pulmonary arterial fi lling defect is seen although evaluation of the segmental and subsegmental branches is limited by fidelina ing of the contrast bolus. No evidence for right heart strain. Moderate emphysema. Bilateral bronchial thickening which is new. Grossly stable 1.2 x 0.9 cm left u pper lobe nodule on axial image 41. Stable spiculated left upper lobe 1 x 0.6 cm nodule axial image 50. A stable somewhat tubular right lower lobe nodule axial image 86. Stable left lower lobe 0.6 cm nodule on axial image 101. New scattered ground glass opacities, nodularity and band-like opacities in both lungs since the prior study. No pleural effusion or pneumothorax. There is no acute abnormality within the upper abdomen. Old superior endplate compression deformities of T3 and T4. Degenerative changes in the spine. IMPRESSION: 1. No pulmonary embolus within technical limitations. 2. Bilateral pneumonia. Follow-up recommended. 3. Stable pulmonary nodules as described. 4. Prominent mediastinal and hilar lymph nodes which are increased from prior study, likely reactive , and which can be reassessed on follow-up. All CT scans are performed using dose optimization techniques as appropriate to the performed exam an d include at least one of the following: Automated exposure control, adjustment of the mA and/or kV according t o size, and the use of iterative reconstruction technique.
[2021-08-05] MEDS ORDERED: POTASSIUM CHL 10% ORAL SOL PO ONE (10:09)
[2021-08-05] MEDS ORDERED: TOBREX 0.3% RIGHTEYE SCH (10:30)
[2021-08-05] MEDS: LEVAQUIN 750 MG/150 ML D5W 750 MG/150 ML BAG IV SCH (11:04)
[2021-08-05] MEDS: SODIUM CHLORIDE 0.9%-KCL 20 MEQ 1,000 ML IV SCH ×2 (11:04→23:47)
[2021-08-05] MEDS: PRILOSEC PO SCH (11:05)
[2021-08-05 12:45] VITALS: BMI 23.6
[2021-08-05] MEDS ORDERED: EFFEXOR XR PO SCH (13:30)
[2021-08-05] MEDS: FOLIC ACID PO SCH (14:24)
[2021-08-05] MEDS: TOPROL XL PO SCH ×2 (14:24→20:10)
[2021-08-05] MEDS: LOTENSIN PO SCH (14:24)
[2021-08-05] MEDS: NORVASC PO SCH (14:24)
[2021-08-05] MEDS ORDERED: DUONEB NEB SCH (14:30)
[2021-08-05] MEDS: FERROUS SULFATE PO SCH (16:51)
[2021-08-05] MEDS: DUONEB NEB SCH ×2 (17:00→21:12)
[2021-08-05] MEDS: MORPHINE 2 MG/ML VIAL IVP PRN ×2 (19:08→23:46)
[2021-08-05] MEDS: EFFEXOR XR PO SCH (20:10)
[2021-08-05] MEDS: SYMBICORT 160-4.5 MCG INHALER IH SCH (20:10)
[2021-08-05] MEDS: SOLU-MEDROL 125 MG IVP SCH (20:26)
[2021-08-05] MEDS: PERCOCET 5-325 PO PRN (20:38)
[2021-08-05] MEDS ORDERED: XANAX PO PRN (21:00)
[2021-08-05] MEDS ORDERED: NON-FORMULARY MEDICATION (Ferrous Sulfate 325 mg (65 mg iron) Tablet) PO SCH (21:00)
[2021-08-05] MEDS ORDERED: TOPROL XL PO SCH (21:00)
[2021-08-06] MEDS: DUONEB NEB SCH ×6 (01:08→20:44)
[2021-08-06] MEDS: SOLU-MEDROL 125 MG IVP SCH ×4 (05:03→21:50)
[2021-08-06 05:48] LABS: BASOPHILS % (AUTO) 0.1 % (0.0-3.0); HEMATOCRIT 32.5 % (37.0-47.0); HEMOGLOBIN 10.3 g/dl (12.0-16.0); IMMATURE GRANULOCYTE # (AUTO) 0.1 (0.0-1.0); IMMATURE GRANULOCYTE % (AUTO) 0.6 % (0.0-5.0); MEAN CORPUSCULAR HGB CONC 31.7 (31.8-35.4); MEAN CORPUSCULAR VOLUME 100.9 fl (81.0-99.0); MONOCYTES # (AUTO) 0.4 K/uL (0.4-2.0); MONOCYTES % (AUTO) 2.7 (0-10); NEUTROPHILS % (AUTO) 89.6 % (42.2-75.2); PLATELET COUNT 604 10^3/uL (140-440); RDW COEFFICIENT OF VARIATION 18.5 % (11.6-14.8); RED BLOOD COUNT 3.22 10^6/ul (4.20-5.40); WHITE BLOOD COUNT 14.48 K/ul (4.6-10.2)
[2021-08-06] MEDS: PRILOSEC PO SCH (05:49)
[2021-08-06] MEDS: FERROUS SULFATE PO SCH ×2 (05:49→16:40)
[2021-08-06 06:05] LABS: ALANINE AMINOTRANSFERASE 35.7 U/L (0-35); ALBUMIN 4.43 g/dL (3.5-5.0); ALKALINE PHOSPHATASE 74.1 U/L (53-141); BILIRUBIN,TOTAL 0.23 mg/dL (0.2-1.3); BLOOD UREA NITROGEN 11.6 mg/dL (7-17); CALCIUM 9.25 mg/dL (8.4-10.2); CARBON DIOXIDE 27.5 mmol/L (22-30.0); CHLORIDE 104.1 mmol/L (98-107); CREATININE 0.6 mg/dL (0.60-1.30); GLUCOSE 215.1 mg/dL (74-106); POTASSIUM 3.99 mmol/L (3.5-5.1); TOTAL PROTEIN 7.76 g/dL (6.3-8.2)
[2021-08-06] MEDS: MORPHINE 2 MG/ML VIAL IVP PRN ×2 (08:00→12:18)
[2021-08-06] MEDS: LOTENSIN PO SCH (08:13)
[2021-08-06] MEDS: PRAVACHOL PO SCH (08:13)
[2021-08-06] MEDS: TOPROL XL PO SCH ×2 (08:13→20:26)
[2021-08-06] MEDS: LEVAQUIN 750 MG/150 ML D5W 750 MG/150 ML BAG IV SCH (08:13)
[2021-08-06] MEDS: ASPIRIN EC PO SCH (08:13)
[2021-08-06] MEDS: FOLIC ACID PO SCH (08:13)
[2021-08-06] MEDS: NORVASC PO SCH (08:13)
[2021-08-06] MEDS: SYMBICORT 160-4.5 MCG INHALER IH SCH ×2 (08:15→20:27)
[2021-08-06] MEDS ORDERED: MEDROL DOSEPAK PO SCH (09:00)
[2021-08-06] MEDS ORDERED: LEVAQUIN 750 MG/150 ML D5W 750 MG/150 ML BAG IV SCH (09:00)
[2021-08-06] MEDS ORDERED: NON-FORMULARY MEDICATION (Aspirin 81 mg Tablet) PO SCH (09:00)
[2021-08-06 11:54] LABS: ABG PH 7.39 (7.35-7.45); BEecf 2.2 (-2.0-3.0); COHb 2.2 (0.5-1.5); HCO3 27.2 (21-28); MetHb 0.4 (0-1.5); TCO2 28.6 (19-24); sO2 94.9 % (94-98)
[2021-08-06 11:55] LABS: ABG O2 HGB 95.7 % (95-100); tHb 9.9 g/dl (11.7-17.4)
--- NOTE | 2021-08-06 12:42 | PCM.PROG ---
Date Seen by Provider: 08/06/21 Time Seen by Provider: 07:00 Subjective: Patient states that she still feels short of breath despite getting a breathing treatment 30 mins ago. Sometimes after 40 mins she feels better. Objective: Vitals: T=97.6 F, P=114, R=24, QE=426/82, SPO2=99 HEENT: [Mucus membranes moist ] Neck: [supple no JVD] Lungs: [Diminished throughout with scattered wheezing] CVS: [Regular Tachycardia ] Abdomen: [Sfot No tender ] Extremities: [No edema] Neurological: [Awake and aler In Mild to moderate respiratory distress Moves all extremities.] Skin: [No rash] Lab/Tests/Diagnostic Imaging: [ Abnormal Lab Results 08/05/21 08/06/21 08/06/21 16:11 00:15 05:12 WBC 14.48 H RBC 3.22 L Hgb 10.3 L Hct 32.5 L MCV 100.9 H MCH 32.0 H MCHC 31.7 L RDW Coeff of Taylor 18.5 H Plt Count 604 H Immature Gran % (Auto) 0.6 Neut % (Auto) 89.6 H Lymph % (Auto) 7.0 L Jewell % (Auto) 2.7 Eos % (Auto) 0.0 Baso % (Auto) 0.1 Neut # (Auto) 13.0 H Lymph # (Auto) 1.0 Jewell # (Auto) 0.4 Eos # (Auto) 0.0 Baso # (Auto) 0.0 Immature Gran # (Auto) 0.1 Puncture Site Base Excess O2 Saturation ABG pH ABG pCO2 ABG pO2 ABG HCO3 ABG Total CO2 William Test Hemoglobin Oxyhemoglobin Carboxyhemoglobin Total Hemoglobin O2 Delivery Device Oxygen Liter Flow Sodium Potassium Chloride Carbon Dioxide Anion Gap BUN Creatinine Estimated GFR (MDRD) BUN/Creatinine Ratio Glucose Calcium Total Bilirubin AST ALT Alkaline Phosphatase Troponin I < 0.012 < 0.012 Total Protein Albumin Globulin Albumin/Globulin Ratio 08/06/21 08/06/21 05:12 11:40 WBC RBC Hgb Hct MCV MCH MCHC RDW Coeff of Taylor Plt Count Immature Gran % (Auto) Neut % (Auto) Lymph % (Auto) Jewell % (Auto) Eos % (Auto) Baso % (Auto) Neut # (Auto) Lymph # (Auto) Jewell # (Auto) Eos # (Auto) Baso # (Auto) Immature Gran # (Auto) Puncture Site R brach Base Excess 2.2 O2 Saturation 94.9 ABG pH 7.39 ABG pCO2 45.0 ABG pO2 76.0 L ABG HCO3 27.2 ABG Total CO2 28.6 H William Test + Hemoglobin 0.4 Oxyhemoglobin 95.7 Carboxyhemoglobin 2.2 H Total Hemoglobin 9.9 L O2 Delivery Device Nc Oxygen Liter Flow 2.00 Sodium 141.0 Potassium 3.99 Chloride 104.1 Carbon Dioxide 27.5 Anion Gap 13.39 BUN 11.6 Creatinine 0.60 Estimated GFR (MDRD) 102.00 BUN/Creatinine Ratio 19.33 Glucose 215.1 H D Calcium 9.25 Total Bilirubin 0.23 AST 40.0 H ALT 35.7 H Alkaline Phosphatase 74.1 Troponin I Total Protein 7.76 Albumin 4.43 Globulin 3.33 Albumin/Globulin Ratio 1.33 ] (1) COPD exacerbation: Status: Acute Code(s): J44.1 - Chronic obstructive pulmonary disease with (acute) exacerbation SNOMED Code(s): 052825886 Assessment: Continues to have severe symptoms of wheezing and shortness of breath despite q 4 hours breathing Treatments. Will Try Vapotherm for comfort. (2) Pneumonia: Status: Acute Code(s): J18.9 - Pneumonia, unspecified organism SNOMED Code(s): 328689628 Assessment: Continue IV antibiotics. (3) Acute anxiety: Status: Acute Code(s): F41.9 - Anxiety disorder, unspecified SNOMED Code(s): 23647939 Assessment: Is on Lorazepam qhs will increase to TID prn Plan: Follow labs including ABG and x rays
[2021-08-06 13:11] LABS: ABG O2 HGB 94.4 % (95-100); ABG PH 7.37 (7.35-7.45); BEecf 1.3 (-2.0-3.0); COHb 1.9 (0.5-1.5); HCO3 26.6 (21-28); MetHb 1.2 (0-1.5); sO2 95.4 % (94-98); tHb 10.1 g/dl (11.7-17.4)
[2021-08-06] MEDS: SODIUM CHLORIDE 0.9%-KCL 20 MEQ 1,000 ML IV SCH (14:45)
[2021-08-06] MEDS: XANAX PO PRN ×2 (14:50→20:26)
[2021-08-06] MEDS: PERCOCET 5-325 PO PRN (14:50)
[2021-08-06] MEDS: EFFEXOR XR PO SCH (20:26)
[2021-08-06] MEDS ORDERED: ALBUTEROL 0.083% NEB NEB PRN (20:40)
--- NOTE | 2021-08-06 21:35 | PCM.PROG ---
Date Seen by Provider: 08/06/21 Time Seen by Provider: 12:00 Subjective: Date of Admit - 2021 Patient states that she is not breathing any better, still very SOA, no chest pain. Could not tolerate Vapotherm. Objective: Vitals: T=97.3 F, P=106, R=20, GB=764/85, SPO2=93 HEENT: [WNL] Neck: [Supple] Lungs: [Decreased BS, rhonchi, exp. wheezing.] CVS: [RRR, no M] Abdomen: soft[] Extremities: [intact, no sig. edema] Neurological: [ grossly intact] Skin: [WNL for age] Lab/Tests/Diagnostic Imaging: [Lab - WBC 14 K, K 3.9, gluc 215] Chest CT - IMPRESSION: 1. No pulmonary embolus within technical limitations. 2. Bilateral pneumonia. Follow-up recommended. 3. Stable pulmonary nodules as described. 4. Prominent mediastinal and hilar lymph nodes which are increased from prior study, likely reactive, and which can be reassessed on follow-up. (1) COPD exacerbation: Status: Acute Code(s): J44.1 - Chronic obstructive pulmonary disease with (acute) exacerbation SNOMED Code(s): 695051754 Assessment: Minimal improvement. On solumedrol 125 mg IV tid. Duoneb q 4 hr prn, Oxygen titrated. (2) Pneumonia: Status: Acute Code(s): J18.9 - Pneumonia, unspecified organism SNOMED Code(s): 211315497 Assessment: On levaquin IV. WBC up some from admit, but on steroids. (3) Acute anxiety: Status: Acute Code(s): F41.9 - Anxiety disorder, unspecified SNOMED Code(s): 97971000 Assessment: Chronic, has med. for it. Plan: Continue current management, plus add theodur to see if can help with wheezing. Albuterol tx in between duoneb for breakthrough wheezing.
[2021-08-06] MEDS ORDERED: K-DUR PO ONE (21:58)
[2021-08-06] MEDS: THEO-DUR PO SCH (22:12)
[2021-08-07] MEDS ORDERED: ALBUTEROL 0.083% NEB NEB PRN (00:03)
[2021-08-07] MEDS: MORPHINE 2 MG/ML VIAL IVP PRN ×3 (00:20→09:58)
[2021-08-07] MEDS: XOPENEX 1.25 MG NEB SCH ×5 (00:47→23:10)
[2021-08-07] MEDS: SODIUM CHLORIDE 0.9%-KCL 20 MEQ 1,000 ML IV SCH ×2 (03:35→19:17)
[2021-08-07] MEDS: PERCOCET 5-325 PO PRN ×2 (03:46→21:10)
[2021-08-07] MEDS: SOLU-MEDROL 125 MG IVP SCH ×3 (05:45→21:11)
[2021-08-07] MEDS ORDERED: MAGNESIUM SULFATE 1 GM/100 ML D5W 2 GM/200 ML BAG IV STA (05:49)
[2021-08-07] MEDS: FERROUS SULFATE PO SCH ×2 (05:53→17:06)
[2021-08-07] MEDS: PRILOSEC PO SCH (05:54)
[2021-08-07 05:57] LABS: ALANINE AMINOTRANSFERASE 34.4 U/L (0-35); ALBUMIN 3.81 g/dL (3.5-5.0); ALKALINE PHOSPHATASE 62.9 U/L (53-141); ASPARTATE AMINO TRANSFERASE 50.5 U/L (14-36); BILIRUBIN,TOTAL 0.17 mg/dL (0.2-1.3); BLOOD UREA NITROGEN 17.9 mg/dL (7-17); CALCIUM 8.91 mg/dL (8.4-10.2); CHLORIDE 108.3 mmol/L (98-107); CREATININE 0.61 mg/dL (0.60-1.30); GLUCOSE 151.5 mg/dL (74-106); POTASSIUM 5.11 mmol/L (3.5-5.1); SODIUM 141.6 mmol/L (134.5-145); TOTAL PROTEIN 6.5 g/dL (6.3-8.2)
[2021-08-07 06:15] LABS: ABG PH 7.29 (7.35-7.45)
[2021-08-07 06:16] LABS: BEecf -0.6 (-2.0-3.0); COHb 2.9 (0.5-1.5); HCO3 26 (21-28); MetHb 0.7 (0-1.5); TCO2 27.7 (19-24)
[2021-08-07 06:17] LABS: ABG O2 HGB 95.9 % (95-100); sO2 99.2 % (94-98); tHb 9.6 g/dl (11.7-17.4)
[2021-08-07] MEDS: XANAX PO PRN ×2 (06:19→13:40)
[2021-08-07 06:25] LABS: BASOPHILS % (AUTO) 0.1 % (0.0-3.0); HEMATOCRIT 29.2 % (37.0-47.0); HEMOGLOBIN 9.2 g/dl (12.0-16.0); IMMATURE GRANULOCYTE # (AUTO) 0.1 (0.0-1.0); IMMATURE GRANULOCYTE % (AUTO) 0.8 % (0.0-5.0); LYMPHOCYTES # (AUTO) 0.8 K/uL (0.60-3.4); LYMPHOCYTES % (AUTO) 5.4 (10.0-50.0); MEAN CORPUSCULAR HEMOGLOBIN 32.9 pg (27.0-31.0); MEAN CORPUSCULAR HGB CONC 31.5 (31.8-35.4); MEAN CORPUSCULAR VOLUME 104.3 fl (81.0-99.0); MONOCYTES # (AUTO) 0.9 K/uL (0.4-2.0); MONOCYTES % (AUTO) 5.6 (0-10); NEUTROPHILS # (AUTO) 13.8 K/ul (2.0-6.9); NEUTROPHILS % (AUTO) 88.1 % (42.2-75.2); PLATELET COUNT 514 10^3/uL (140-440); RDW COEFFICIENT OF VARIATION 18.2 % (11.6-14.8); WHITE BLOOD COUNT 15.61 K/ul (4.6-10.2)
--- NOTE | 2021-08-07 06:40 | PCM.PROG ---
Date Seen by Provider: 08/07/21 Time Seen by Provider: 06:30 Subjective: Patient with worsening respiratory symptoms. Discussed intubation, she does not want that, agrees to be a DNI, form done. Objective: Vitals: T=96.5 F, P=108, R=28, BM=063/98, SPO2=99 HEENT: [] Neck: [] Lungs: [Wheezes, rhonchi, dec BS] CVS: [] Abdomen: [] Extremities: [] Neurological: [] Skin: [] Lab/Tests/Diagnostic Imaging: [] Full exam not done, this is just an update. (1) COPD exacerbation: Status: Acute Code(s): J44.1 - Chronic obstructive pulmonary disease with (acute) exacerbation SNOMED Code(s): 241284309 Assessment: Worsening, added oral theodur, give a one time dose of mag 2 gm IV in an effort to get some more bronchodilation. (2) Pneumonia: Status: Acute Code(s): J18.9 - Pneumonia, unspecified organism SNOMED Code(s): 460337834 (3) Acute anxiety: Status: Acute Code(s): F41.9 - Anxiety disorder, unspecified SNOMED Code(s): 53350612 Plan: This is a partial update, not full progress note. Now a DNI. Infusing 2 gm IV mag this morning for bronchodilation. Continue to adjust oxygen, tends to retain CO2.
--- NOTE | 2021-08-07 09:58 | PCM.PROG ---
Date Seen by Provider: 08/07/21 Time Seen by Provider: 09:53 Subjective: pt short of breath, made DNI over night, adjusting oxygen levels, currently 50% on 35liters vapotherm, pt prefers to transfer to [facility] [place] to see a chemist enzymes Objective: Vitals: T=96.5 F, P=108, R=28, OA=576/98, SPO2=98 HEENT: []conjunctiva clear Neck: []supple Lungs: [] wheezing CVS: []RRR Abdomen: []nondistended Extremities: [] Neurological: []alert and oriented Skin: []pink Lab/Tests/Diagnostic Imaging: [] wbc 15, pH 7.29/54/154 (1) COPD exacerbation: Status: Acute Code(s): J44.1 - Chronic obstructive pulmonary disease with (acute) exacerbation SNOMED Code(s): 195238887 (2) Pneumonia: Status: Acute Code(s): J18.9 - Pneumonia, unspecified organism SNOMED Code(s): 869272215 (3) Acute anxiety: Status: Acute Code(s): F41.9 - Anxiety disorder, unspecified SNOMED Code(s): 90177234 Plan: continue xopenex, solumedrol, levaquin, initiate transfer care to Dr Luu at 19:00
[2021-08-07] MEDS: LEVAQUIN 750 MG/150 ML D5W 750 MG/150 ML BAG IV SCH (10:01)
[2021-08-07] MEDS: ASPIRIN EC PO SCH (10:03)
[2021-08-07] MEDS: THEO-DUR PO SCH ×2 (10:03→21:10)
[2021-08-07] MEDS: TYLENOL PO PRN (10:03)
[2021-08-07] MEDS: LOTENSIN PO SCH (10:04)
[2021-08-07] MEDS: PRAVACHOL PO SCH (10:05)
[2021-08-07] MEDS: TOPROL XL PO SCH ×2 (10:05→21:10)
[2021-08-07] MEDS: NORVASC PO SCH (10:05)
[2021-08-07] MEDS: FOLIC ACID PO SCH (10:06)
[2021-08-07] MEDS: SYMBICORT 160-4.5 MCG INHALER IH SCH ×2 (10:08→21:12)
[2021-08-07] MEDS: MORPHINE 2 MG/ML SYRINGE IVP PRN ×3 (14:01→22:00)
[2021-08-07] MEDS: PYRIDIUM PO SCH ×2 (17:51→21:09)
[2021-08-07] MEDS: ATIVAN IVP PRN (19:11)
[2021-08-07] MEDS: EFFEXOR XR PO SCH (21:10)
[2021-08-08] MEDS: MORPHINE 2 MG/ML SYRINGE IVP PRN ×4 (04:52→21:20)
[2021-08-08] MEDS: SOLU-MEDROL 125 MG IVP SCH ×3 (04:52→20:34)
[2021-08-08 04:55] LABS: ABG O2 HGB 93.2 % (95-100); ABG PH 7.35 (7.35-7.45); BEecf -0.2 (-2.0-3.0); COHb 2.5 (0.5-1.5); HCO3 25.4 (21-28); TCO2 26.8 (19-24); sO2 92.6 % (94-98); tHb 9.5 g/dl (11.7-17.4)
[2021-08-08] MEDS: XOPENEX 1.25 MG NEB SCH ×4 (05:07→21:14)
[2021-08-08] MEDS: ATIVAN IVP PRN ×2 (05:11→11:51)
[2021-08-08 05:30] LABS: BASOPHILS % (AUTO) 0.1 % (0.0-3.0); HEMATOCRIT 29.5 % (37.0-47.0); HEMOGLOBIN 9.1 g/dl (12.0-16.0); IMMATURE GRANULOCYTE # (AUTO) 0.1 (0.0-1.0); IMMATURE GRANULOCYTE % (AUTO) 0.7 % (0.0-5.0); MEAN CORPUSCULAR HEMOGLOBIN 31.9 pg (27.0-31.0); MEAN CORPUSCULAR HGB CONC 30.8 (31.8-35.4); MEAN CORPUSCULAR VOLUME 103.5 fl (81.0-99.0); MONOCYTES # (AUTO) 0.9 K/uL (0.4-2.0); MONOCYTES % (AUTO) 6.2 (0-10); NEUTROPHILS # (AUTO) 12.9 K/ul (2.0-6.9); PLATELET COUNT 569 10^3/uL (140-440); RDW COEFFICIENT OF VARIATION 18.2 % (11.6-14.8); RED BLOOD COUNT 2.85 10^6/ul (4.20-5.40); WHITE BLOOD COUNT 14.94 K/ul (4.6-10.2)
[2021-08-08 05:41] LABS: ALANINE AMINOTRANSFERASE 46.8 U/L (0-35); ALBUMIN 3.82 g/dL (3.5-5.0); ALKALINE PHOSPHATASE 62.9 U/L (53-141); ASPARTATE AMINO TRANSFERASE 66.2 U/L (14-36); BILIRUBIN,TOTAL 0.23 mg/dL (0.2-1.3); BLOOD UREA NITROGEN 15.5 mg/dL (7-17); CALCIUM 9.2 mg/dL (8.4-10.2); CHLORIDE 106.5 mmol/L (98-107); CREATININE 0.7 mg/dL (0.60-1.30); GLUCOSE 151.4 mg/dL (74-106); MAGNESIUM 2.59 mg/dL (1.6-2.3); POTASSIUM 4.71 mmol/L (3.5-5.1); SODIUM 141.1 mmol/L (134.5-145); TOTAL PROTEIN 6.74 g/dL (6.3-8.2)
[2021-08-08] MEDS: PRILOSEC PO SCH ×2 (06:00→09:00)
[2021-08-08] MEDS: FERROUS SULFATE PO SCH ×2 (06:00→17:52)
[2021-08-08] MEDS ORDERED: MORPHINE 2 MG/ML SYRINGE IVP ONE (07:58)
[2021-08-08] MEDS: SODIUM CHLORIDE 0.9%-KCL 20 MEQ 1,000 ML IV SCH ×2 (08:11→20:34)
[2021-08-08] MEDS: LEVAQUIN 750 MG/150 ML D5W 750 MG/150 ML BAG IV SCH (08:11)
[2021-08-08] MEDS: ASPIRIN EC PO SCH (08:56)
[2021-08-08] MEDS: LOTENSIN PO SCH (08:58)
[2021-08-08] MEDS: SYMBICORT 160-4.5 MCG INHALER IH SCH ×2 (08:58→20:48)
[2021-08-08] MEDS: TOPROL XL PO SCH ×2 (08:59→20:34)
[2021-08-08] MEDS: THEO-DUR PO SCH ×2 (09:01→20:34)
[2021-08-08] MEDS: NORVASC PO SCH (09:01)
[2021-08-08] MEDS: LOVENOX SUBCUT SCH ×2 (09:02→20:33)
[2021-08-08] MEDS: FOLIC ACID PO SCH (09:10)
[2021-08-08] MEDS: PRAVACHOL PO SCH (09:10)
[2021-08-08] MEDS: PYRIDIUM PO SCH (09:11)
--- NOTE | 2021-08-08 09:44 | PCM.PROG ---
Date Seen by Provider: 08/08/21 Time Seen by Provider: 09:37 Subjective: pt elects dnr status and to stay at [facility] rather than see oncology or pulmonary as a transfer pt aware her condition is ultimately terminal pt still struggles to breath, but vapotherm is temporizingly helpful, and small doses of morphine and ativan help with comfort and anxiety Objective: Vitals: T=98.1 F, P=105, R=27, ZE=984/86, SPO2=96 HEENT: []conjucnctiva clear Neck: []supple Lungs: [] wheezing CVS: []RRR Abdomen: []nondistended Extremities: [] Neurological: []alert and oriented Skin: []pink Lab/Tests/Diagnostic Imaging: [] ddimer 646 (1) COPD exacerbation: Status: Acute Code(s): J44.1 - Chronic obstructive pulmonary disease with (acute) exacerbation SNOMED Code(s): 675084302 (2) Pneumonia: Status: Acute Code(s): J18.9 - Pneumonia, unspecified organism SNOMED Code(s): 001615352 (3) Acute anxiety: Status: Acute Code(s): F41.9 - Anxiety disorder, unspecified SNOMED Code(s): 73891122 Plan: will single dose a lasix 40mg ivp to see if there's ventilation improvement start full dose lovenox while awaiting doppler of legs to exclude dvt care to Dr Wakefield at 19:00
[2021-08-08] MEDS ORDERED: LASIX IVP ONE (11:18)
[2021-08-08] MEDS: PERCOCET 5-325 PO PRN ×2 (11:53→20:34)
[2021-08-08] MEDS: EFFEXOR XR PO SCH (20:34)
[2021-08-09] MEDS: ATIVAN IVP PRN ×3 (03:06→20:11)
[2021-08-09] MEDS: MORPHINE 2 MG/ML SYRINGE IVP PRN ×5 (03:06→21:29)
[2021-08-09] MEDS: SOLU-MEDROL 125 MG IVP SCH ×3 (05:03→20:11)
[2021-08-09 05:09] LABS: ABG PH 7.53 (7.35-7.45)
[2021-08-09 05:10] LABS: BEecf 9.9 (-2.0-3.0); COHb 5.3 (0.5-1.5); HCO3 32.6 (21-28); MetHb 0.5 (0-1.5); TCO2 33.8 (19-24); sO2 93.1 % (94-98)
[2021-08-09 05:11] LABS: tHb 8.8 g/dl (11.7-17.4)
[2021-08-09] MEDS: XOPENEX 1.25 MG NEB SCH ×4 (05:20→23:03)
[2021-08-09] MEDS ORDERED: LASIX IVP ONE ×2 (05:22→07:30)
[2021-08-09 05:27] LABS: BASOPHILS % (AUTO) 0.1 % (0.0-3.0); HEMATOCRIT 28.1 % (37.0-47.0); IMMATURE GRANULOCYTE # (AUTO) 0.1 (0.0-1.0); IMMATURE GRANULOCYTE % (AUTO) 1.1 % (0.0-5.0); LYMPHOCYTES # (AUTO) 0.7 K/uL (0.60-3.4); LYMPHOCYTES % (AUTO) 7.1 (10.0-50.0); MEAN CORPUSCULAR HEMOGLOBIN 32.5 pg (27.0-31.0); MEAN CORPUSCULAR VOLUME 101.4 fl (81.0-99.0); MONOCYTES # (AUTO) 0.7 K/uL (0.4-2.0); MONOCYTES % (AUTO) 6.3 (0-10); NEUTROPHILS # (AUTO) 8.9 K/ul (2.0-6.9); NEUTROPHILS % (AUTO) 85.4 % (42.2-75.2); PLATELET COUNT 551 10^3/uL (140-440); RED BLOOD COUNT 2.77 10^6/ul (4.20-5.40); WHITE BLOOD COUNT 10.41 K/ul (4.6-10.2)
[2021-08-09] MEDS: FERROUS SULFATE PO SCH ×2 (05:31→16:10)
[2021-08-09] MEDS: PRILOSEC PO SCH (05:31)
[2021-08-09 05:41] LABS: ALANINE AMINOTRANSFERASE 44.4 U/L (0-35); ALBUMIN 3.84 g/dL (3.5-5.0); ALKALINE PHOSPHATASE 70.2 U/L (53-141); ASPARTATE AMINO TRANSFERASE 65.5 U/L (14-36); BILIRUBIN,TOTAL 0.3 mg/dL (0.2-1.3); BLOOD UREA NITROGEN 14.4 mg/dL (7-17); CALCIUM 8.87 mg/dL (8.4-10.2); CHLORIDE 100.4 mmol/L (98-107); CREATININE 0.71 mg/dL (0.60-1.30); GLUCOSE 167.8 mg/dL (74-106); POTASSIUM 3.65 mmol/L (3.5-5.1); SODIUM 140.1 mmol/L (134.5-145); TOTAL PROTEIN 6.82 g/dL (6.3-8.2)
[2021-08-09] MEDS: LOTENSIN PO SCH (08:36)
[2021-08-09] MEDS: FOLIC ACID PO SCH (08:36)
[2021-08-09] MEDS: TOPROL XL PO SCH ×2 (08:37→20:20)
[2021-08-09] MEDS: PRAVACHOL PO SCH (08:37)
[2021-08-09] MEDS: NORVASC PO SCH (08:37)
[2021-08-09] MEDS: THEO-DUR PO SCH ×2 (08:37→20:20)
[2021-08-09] MEDS: SYMBICORT 160-4.5 MCG INHALER IH SCH ×2 (08:37→20:21)
[2021-08-09] MEDS: LOVENOX SUBCUT SCH ×2 (08:40→20:20)
[2021-08-09] MEDS: LEVAQUIN 750 MG/150 ML D5W 750 MG/150 ML BAG IV SCH (09:31)
[2021-08-09] MEDS: SODIUM CHLORIDE 0.9%-KCL 20 MEQ 1,000 ML IV SCH (09:57)
--- NOTE | 2021-08-09 11:21 | US ---
EXAM: Bilateral lower extremity venous Doppler duplex HISTORY: Concern for DVT with elevated D-dimer. COMPARISON: None TECHNIQUE: Sonographic and Doppler evaluation of the bilateral lower extremity vessels from the comm on femoral through the anterior tibial veins were obtained. Color Doppler and wave spectral evaluati on are provided Augmentation and compression techniques were also performed. FINDINGS: There is spontaneous Doppler flow seen in the bilateral lower extremity veins from the com mon femoral through the anterior tibial veins. There is normal compression and augmentation througho ut the lower extremity veins. Color Doppler and wave spectral evaluation are normal. The soft tissu es are normal. IMPRESSION: No lower extremity thrombus
[2021-08-09] MEDS: PERCOCET 5-325 PO PRN (20:10)
[2021-08-09] MEDS: EFFEXOR XR PO SCH (20:20)
[2021-08-10] MEDS: SODIUM CHLORIDE 0.9%-KCL 20 MEQ 1,000 ML IV SCH ×2 (00:10→14:32)
[2021-08-10] MEDS ORDERED: CATAPRES PO ONE ×2 (02:18→03:35)
[2021-08-10] MEDS: ATIVAN IVP PRN ×3 (03:47→19:49)
[2021-08-10] MEDS: XOPENEX 1.25 MG NEB SCH ×4 (05:10→23:20)
[2021-08-10 05:18] LABS: ABG PH 7.47 (7.35-7.45); BEecf 12.7 (-2.0-3.0)
[2021-08-10 05:19] LABS: COHb 1.3 (0.5-1.5); HCO3 36.4 (21-28); MetHb 1.4 (0-1.5); TCO2 37.9 (19-24); sO2 97.3 % (94-98)
[2021-08-10] MEDS: PRILOSEC PO SCH (05:46)
[2021-08-10] MEDS: FERROUS SULFATE PO SCH ×2 (05:46→16:50)
[2021-08-10] MEDS: SOLU-MEDROL 125 MG IVP SCH ×3 (05:47→20:43)
[2021-08-10] MEDS: MORPHINE 2 MG/ML SYRINGE IVP PRN ×3 (05:51→17:44)
--- NOTE | 2021-08-10 05:52 | PCM.PROG ---
Date Seen by Provider: 08/09/21 Time Seen by Provider: 10:00 Subjective: Feels about the same. Still weak. Not able to eat much. Objective: Vitals: T=97 F, P=123, R=19, US=357/96, SPO2=97 HEENT: [wnl] Neck: [supple] Lungs: [decreased breath sounds, no wheezing] CVS: [tachy without m] Abdomen: [soft] Extremities: [intact] Neurological: iintact] Skin: [wnl] Lab/Tests/Diagnostic Imaging: [refer to chart] (1) COPD exacerbation: Status: Acute Code(s): J44.1 - Chronic obstructive pulmonary disease with (acute) exacerbation SNOMED Code(s): 763697429 Assessment: End-stage COPD, DNR status, on vapotherm, settings per RT, maintains sat's over 90. (2) Pneumonia: Status: Acute Code(s): J18.9 - Pneumonia, unspecified organism SNOMED Code(s): 982403201 Assessment: Continues on same antibiotics. (3) Acute anxiety: Status: Acute Code(s): F41.9 - Anxiety disorder, unspecified SNOMED Code(s): 02556727 Assessment: Stable as best as can be under these circumstances. Plan: Continue current management.
[2021-08-10] MEDS: NORVASC PO SCH ×2 (06:11→08:40)
[2021-08-10] MEDS: TOPROL XL PO SCH ×3 (06:11→20:36)
[2021-08-10] MEDS: SYMBICORT 160-4.5 MCG INHALER IH SCH ×2 (08:24→20:36)
[2021-08-10] MEDS: PRAVACHOL PO SCH (08:24)
[2021-08-10] MEDS: LOTENSIN PO SCH (08:25)
[2021-08-10] MEDS: THEO-DUR PO SCH ×2 (08:26→20:36)
[2021-08-10] MEDS: FOLIC ACID PO SCH (08:27)
[2021-08-10] MEDS: PERCOCET 5-325 PO PRN ×2 (08:30→20:36)
[2021-08-10] MEDS: LEVAQUIN 750 MG/150 ML D5W 750 MG/150 ML BAG IV SCH (08:35)
[2021-08-10] MEDS: LOVENOX SUBCUT SCH (08:35)
--- NOTE | 2021-08-10 10:53 | PCM.PROG ---
Date Seen by Provider: 08/10/21 Time Seen by Provider: 10:50 Subjective: pt improved, although still taking morphine for pain, is still on vapotherm Objective: Vitals: T=97.4 F, P=122, R=20, YP=761/90, SPO2=99 HEENT: []conjunctiva clear Neck: []supple Lungs: [] no respiratory distress CVS: []RRR Abdomen: []nondistended Extremities: [] Neurological: []alert and oriented Skin: []pink Lab/Tests/Diagnostic Imaging: [] no dvt legs per Rad (1) COPD exacerbation: Status: Acute Code(s): J44.1 - Chronic obstructive pulmonary disease with (acute) exacerbation SNOMED Code(s): 031310677 (2) Pneumonia: Status: Acute Code(s): J18.9 - Pneumonia, unspecified organism SNOMED Code(s): 865650133 (3) Acute anxiety: Status: Acute Code(s): F41.9 - Anxiety disorder, unspecified SNOMED Code(s): 66098397 Plan: will attempt to wean vapotherm as a prelude to discharge care to Dr Wakefield at 19:00
[2021-08-10] MEDS: EFFEXOR XR PO SCH (20:35)
[2021-08-11] MEDS: MORPHINE 2 MG/ML SYRINGE IVP PRN (01:56)
[2021-08-11] MEDS: SODIUM CHLORIDE 0.9%-KCL 20 MEQ 1,000 ML IV SCH ×2 (04:09→18:17)
[2021-08-11] MEDS: ATIVAN IVP PRN ×3 (04:15→20:57)
[2021-08-11] MEDS: SOLU-MEDROL 125 MG IVP SCH (04:34)
[2021-08-11] MEDS: XOPENEX 1.25 MG NEB SCH ×4 (05:22→23:07)
[2021-08-11] MEDS: FERROUS SULFATE PO SCH ×2 (05:39→17:20)
[2021-08-11] MEDS: PRILOSEC PO SCH (05:39)
[2021-08-11 05:40] LABS: HEMATOCRIT 28.6 % (37.0-47.0); HEMOGLOBIN 9.1 g/dl (12.0-16.0); MEAN CORPUSCULAR HEMOGLOBIN 31.9 pg (27.0-31.0); MEAN CORPUSCULAR HGB CONC 31.8 (31.8-35.4); MEAN CORPUSCULAR VOLUME 100.4 fl (81.0-99.0); PLATELET COUNT 503 10^3/uL (140-440); RDW COEFFICIENT OF VARIATION 17.8 % (11.6-14.8); RED BLOOD COUNT 2.85 10^6/ul (4.20-5.40); WHITE BLOOD COUNT 9.61 K/ul (4.6-10.2)
[2021-08-11 05:55] LABS: ANISOCYTOSIS NOT PRESENT (NOT PRESENT)
[2021-08-11 05:57] LABS: BLOOD UREA NITROGEN 11.9 mg/dL (7-17); CALCIUM 8.7 mg/dL (8.4-10.2); CARBON DIOXIDE 33.5 mmol/L (22-30.0); CHLORIDE 102.4 mmol/L (98-107); CREATININE 0.65 mg/dL (0.60-1.30); GLUCOSE 185.4 mg/dL (74-106); POTASSIUM 3.44 mmol/L (3.5-5.1); SODIUM 141.2 mmol/L (134.5-145)
[2021-08-11] MEDS: TOPROL XL PO SCH ×2 (08:54→20:32)
[2021-08-11] MEDS: PRAVACHOL PO SCH (08:54)
[2021-08-11] MEDS: NORVASC PO SCH (08:54)
[2021-08-11] MEDS: SYMBICORT 160-4.5 MCG INHALER IH SCH ×2 (08:54→20:32)
[2021-08-11] MEDS: THEO-DUR PO SCH ×2 (08:54→20:31)
[2021-08-11] MEDS: LOTENSIN PO SCH (08:54)
[2021-08-11] MEDS: FOLIC ACID PO SCH (08:54)
[2021-08-11] MEDS: LOVENOX SUBCUT SCH (08:55)
[2021-08-11] MEDS: LEVAQUIN 750 MG/150 ML D5W 750 MG/150 ML BAG IV SCH (08:57)
[2021-08-11] MEDS: MORPHINE 4 MG/ML SYRINGE IVP PRN ×2 (11:40→17:20)
[2021-08-11] MEDS ORDERED: LASIX IVP ONE (12:56)
[2021-08-11] MEDS: SOLU-MEDROL 40 MG IVP SCH ×2 (13:16→20:56)
--- NOTE | 2021-08-11 13:37 | DI ---
EXAM: Frontal view of the chest. HISTORY: Shortness of breath. COMPARISON: Chest radiograph 08/05/2021. FINDINGS: Left chest port appears stable with catheter tip at the superior cavoatrial junction. Normal heart size. Hyperexpanded lungs with flattening of the diaphragm consistent with emphysema and/or chronic obstruc tive pulmonary disease. Unchanged mild scattered scarring at the mid to lower lungs. No acute conso lidation. No visible effusion or pneumothorax. No acute osseous abnormality. IMPRESSION: 1. No acute process demonstrated. 2. Emphysema and/or chronic obstructive pulmonary disease. Mild bilateral lung scarring.
[2021-08-11] MEDS: EFFEXOR XR PO SCH (20:31)
[2021-08-11] MEDS: PERCOCET 5-325 PO PRN (20:31)
[2021-08-11] MEDS ORDERED: CATAPRES PO PRN (22:11)
--- NOTE | 2021-08-11 23:53 | PCM.PROG ---
Date Seen by Provider: 08/11/21 Time Seen by Provider: 09:00 Subjective: Still weak, SOA, no chest pain, able to eat some, has not been out of bed. Objective: Vitals: T=97.9 F, P=116, R=20, MR=327/81, LDG2=683 HEENT: WNL[] Neck: [supple] Lungs: [decreased breath sounds, no wheezing] CVS: [tachy at 120] Abdomen: [soft] Extremities: [intact] Neurological: intact[] Skin: [no acute change, some ecchy] Lab/Tests/Diagnostic Imaging: [see chart] (1) COPD exacerbation: Status: Acute Code(s): J44.1 - Chronic obstructive pulmonary disease with (acute) exacerbation SNOMED Code(s): 623585696 Assessment: End-stage COPD. DNR. On vapotherm. Reduced steroids. ABG and O2 management per RT. (2) Pneumonia: Status: Acute Code(s): J18.9 - Pneumonia, unspecified organism SNOMED Code(s): 169547367 Assessment: No more pneumonia on CXR. Levaquin has stopped. (3) Acute anxiety: Status: Acute Code(s): F41.9 - Anxiety disorder, unspecified SNOMED Code(s): 21238652 Assessment: Unchanged due to poor health. Plan: Continue same management. Some of the nursing staff has been talking to her about hospice - not interested at this point.
[2021-08-12] MEDS: MORPHINE 4 MG/ML SYRINGE IVP PRN (03:43)
[2021-08-12] MEDS: XOPENEX 1.25 MG NEB SCH ×4 (04:50→23:03)
[2021-08-12] MEDS: SOLU-MEDROL 40 MG IVP SCH ×3 (04:55→21:41)
[2021-08-12] MEDS: ATIVAN IVP PRN (04:56)
[2021-08-12] MEDS: PRILOSEC PO SCH (05:48)
[2021-08-12] MEDS: FERROUS SULFATE PO SCH ×2 (05:49→17:42)
[2021-08-12 05:51] LABS: HEMATOCRIT 30.8 % (37.0-47.0); HEMOGLOBIN 9.6 g/dl (12.0-16.0); MEAN CORPUSCULAR HEMOGLOBIN 31.7 pg (27.0-31.0); MEAN CORPUSCULAR HGB CONC 31.2 (31.8-35.4); MEAN CORPUSCULAR VOLUME 101.7 fl (81.0-99.0); PLATELET COUNT 494 10^3/uL (140-440); RDW COEFFICIENT OF VARIATION 17.6 % (11.6-14.8); RED BLOOD COUNT 3.03 10^6/ul (4.20-5.40); WHITE BLOOD COUNT 12.76 K/ul (4.6-10.2)
[2021-08-12 05:59] LABS: ANISOCYTOSIS NOT PRESENT (NOT PRESENT)
[2021-08-12 06:07] LABS: BLOOD UREA NITROGEN 11.4 mg/dL (7-17); CALCIUM 8.87 mg/dL (8.4-10.2); CARBON DIOXIDE 35.1 mmol/L (22-30.0); CHLORIDE 101.3 mmol/L (98-107); CREATININE 0.74 mg/dL (0.60-1.30); GLUCOSE 180.1 mg/dL (74-106); POTASSIUM 3.49 mmol/L (3.5-5.1); SODIUM 140.6 mmol/L (134.5-145)
[2021-08-12] MEDS: SODIUM CHLORIDE 0.9%-KCL 20 MEQ 1,000 ML IV SCH ×2 (06:53→12:42)
[2021-08-12] MEDS: LOTENSIN PO SCH (08:29)
[2021-08-12] MEDS: NORVASC PO SCH (08:30)
[2021-08-12] MEDS: FOLIC ACID PO SCH (08:30)
[2021-08-12] MEDS: PRAVACHOL PO SCH (08:30)
[2021-08-12] MEDS: TOPROL XL PO SCH ×2 (08:30→21:41)
[2021-08-12] MEDS: THEO-DUR PO SCH ×2 (08:30→21:41)
[2021-08-12] MEDS: SYMBICORT 160-4.5 MCG INHALER IH SCH ×2 (08:31→21:44)
[2021-08-12] MEDS: PERCOCET 5-325 PO PRN (08:37)
[2021-08-12] MEDS: LOVENOX SUBCUT SCH (08:38)
--- NOTE | 2021-08-12 11:30 | PCM.PROG ---
Date Seen by Provider: 08/12/21 Time Seen by Provider: 11:26 Subjective: pt feeling better, less air hunger, has been weaned down to 4liters NC oxygen, +urine out response to lasix and breathing better Objective: Vitals: T=97.4 F, P=116, R=24, OH=587/91, SPO2=98 HEENT: []conjunctiva clear Neck: []supple Lungs: [] improving rhonchi, L>R CVS: []RRR Abdomen: []nondistended Extremities: [] Neurological: []alert and oriented Skin: []pink Lab/Tests/Diagnostic Imaging: [] (1) COPD exacerbation: Status: Acute Code(s): J44.1 - Chronic obstructive pulmonary disease with (acute) exacerbation SNOMED Code(s): 430875952 (2) Pneumonia: Status: Acute Code(s): J18.9 - Pneumonia, unspecified organism SNOMED Code(s): 856266777 (3) Acute anxiety: Status: Acute Code(s): F41.9 - Anxiety disorder, unspecified SNOMED Code(s): 90032900 Plan: consult ot and pt for deconditioning as prelude to discharge, perhaps tomorrow pt has been in touch with her oncologist who permits a delay in her chemo treatment change to oral xananx, hep lock the iv, up in chair care to Dr Wakefield at 19:00
[2021-08-12] MEDS: XANAX PO PRN ×2 (12:11→18:22)
[2021-08-12] MEDS: ZOFRAN 4 MG/2 ML IVP PRN (12:41)
[2021-08-12] MEDS: EFFEXOR XR PO SCH (21:41)
[2021-08-13] MEDS: SOLU-MEDROL 40 MG IVP SCH ×3 (04:44→22:01)
[2021-08-13] MEDS: XANAX PO PRN ×3 (04:44→16:45)
[2021-08-13] MEDS: XOPENEX 1.25 MG NEB SCH ×3 (04:50→16:53)
[2021-08-13 05:35] LABS: HEMATOCRIT 31.7 % (37.0-47.0); HEMOGLOBIN 9.8 g/dl (12.0-16.0); MEAN CORPUSCULAR HEMOGLOBIN 31.1 pg (27.0-31.0); MEAN CORPUSCULAR HGB CONC 30.9 (31.8-35.4); MEAN CORPUSCULAR VOLUME 100.6 fl (81.0-99.0); PLATELET COUNT 469 10^3/uL (140-440); RDW COEFFICIENT OF VARIATION 17.1 % (11.6-14.8); RED BLOOD COUNT 3.15 10^6/ul (4.20-5.40); WHITE BLOOD COUNT 15.95 K/ul (4.6-10.2)
[2021-08-13] MEDS: FERROUS SULFATE PO SCH ×2 (05:41→16:45)
[2021-08-13] MEDS: PRILOSEC PO SCH (05:41)
[2021-08-13 05:42] LABS: ANISOCYTOSIS NOT PRESENT (NOT PRESENT)
[2021-08-13 05:44] LABS: ALANINE AMINOTRANSFERASE 34.4 U/L (0-35); ALBUMIN 3.61 g/dL (3.5-5.0); ALKALINE PHOSPHATASE 56.7 U/L (53-141); ASPARTATE AMINO TRANSFERASE 45.5 U/L (14-36); BILIRUBIN,TOTAL 0.26 mg/dL (0.2-1.3); BLOOD UREA NITROGEN 10.7 mg/dL (7-17); CALCIUM 8.96 mg/dL (8.4-10.2); CARBON DIOXIDE 37.3 mmol/L (22-30.0); CHLORIDE 96.8 mmol/L (98-107); CREATININE 0.7 mg/dL (0.60-1.30); GLUCOSE 149.9 mg/dL (74-106); POTASSIUM 3.13 mmol/L (3.5-5.1); TOTAL PROTEIN 6.12 g/dL (6.3-8.2)
[2021-08-13] MEDS: FOLIC ACID PO SCH (09:17)
[2021-08-13] MEDS: LOTENSIN PO SCH (09:17)
[2021-08-13] MEDS: PRAVACHOL PO SCH (09:18)
[2021-08-13] MEDS: NORVASC PO SCH (09:19)
[2021-08-13] MEDS: TOPROL XL PO SCH ×2 (09:19→21:18)
[2021-08-13] MEDS: THEO-DUR PO SCH ×2 (09:19→21:18)
[2021-08-13] MEDS: LOVENOX SUBCUT SCH (09:20)
[2021-08-13] MEDS: SYMBICORT 160-4.5 MCG INHALER IH SCH ×2 (09:20→21:19)
[2021-08-13] MEDS: ZOFRAN 4 MG/2 ML IVP PRN (09:35)
[2021-08-13] MEDS: K-DUR PO SCH ×2 (14:21→16:44)
[2021-08-13] MEDS: MORPHINE 4 MG/ML SYRINGE IVP PRN ×2 (14:29→22:02)
[2021-08-13] MEDS: SODIUM CHLORIDE 1,000 ML IV SCH (19:28)
[2021-08-13] MEDS: EFFEXOR XR PO SCH (21:18)
--- NOTE | 2021-08-13 22:49 | PCM.PROG ---
Date Seen by Provider: 08/13/21 Time Seen by Provider: 09:00 Subjective: Feeling a little better today. Objective: Vitals: T=98.1 F, P=107, R=20, OE=076/63, SPO2=99 HEENT: [WNL] Neck: [supple] Lungs: [reduced breath sounds, no wheezing] CVS: [rrr, no m] Abdomen: [soft] Extremities: intact[] Neurological: iintact[] Skin: [wnl] Lab/Tests/Diagnostic Imaging: [] (1) COPD exacerbation: Status: Acute Code(s): J44.1 - Chronic obstructive pulmonary disease with (acute) exacerbation SNOMED Code(s): 482542632 Assessment: Doing better, off vapotherm, back on NC at 2 L . Sat's doing well. (2) Pneumonia: Status: Acute Code(s): J18.9 - Pneumonia, unspecified organism SNOMED Code(s): 772016012 Assessment: Off antibiotics since pneumonia resolved. (3) Acute anxiety: Status: Acute Code(s): F41.9 - Anxiety disorder, unspecified SNOMED Code(s): 91985037 Assessment: Somewhat less anxious since is seeing "light at the end of the tunnel". Plan: Continue same regimen. If she can get up and about on 2 L or so oxygen, she could go home, has home oxygen and a nebulizer.
[2021-08-14] MEDS: MORPHINE 4 MG/ML SYRINGE IVP PRN ×2 (04:26→13:09)
[2021-08-14] MEDS: XOPENEX 1.25 MG NEB SCH ×4 (04:40→20:22)
[2021-08-14] MEDS: PRILOSEC PO SCH (05:42)
[2021-08-14] MEDS: FERROUS SULFATE PO SCH ×2 (05:42→16:31)
[2021-08-14] MEDS: SOLU-MEDROL 40 MG IVP SCH ×3 (05:42→21:15)
[2021-08-14 06:03] LABS: HEMATOCRIT 30.5 % (37.0-47.0); HEMOGLOBIN 9.8 g/dl (12.0-16.0); MEAN CORPUSCULAR HEMOGLOBIN 32.5 pg (27.0-31.0); MEAN CORPUSCULAR HGB CONC 32.1 (31.8-35.4); PLATELET COUNT 415 10^3/uL (140-440); RDW COEFFICIENT OF VARIATION 17.2 % (11.6-14.8); RED BLOOD COUNT 3.02 10^6/ul (4.20-5.40); WHITE BLOOD COUNT 19.52 K/ul (4.6-10.2)
[2021-08-14 06:11] LABS: ANISOCYTOSIS NOT PRESENT (NOT PRESENT)
[2021-08-14 06:18] LABS: ALANINE AMINOTRANSFERASE 33.2 U/L (0-35); ALBUMIN 3.45 g/dL (3.5-5.0); ALKALINE PHOSPHATASE 57.1 U/L (53-141); ASPARTATE AMINO TRANSFERASE 36.5 U/L (14-36); BILIRUBIN,TOTAL 0.28 mg/dL (0.2-1.3); BLOOD UREA NITROGEN 13.2 mg/dL (7-17); CALCIUM 8.62 mg/dL (8.4-10.2); CARBON DIOXIDE 37.9 mmol/L (22-30.0); CHLORIDE 97.5 mmol/L (98-107); CREATININE 0.68 mg/dL (0.60-1.30); GLUCOSE 158.5 mg/dL (74-106); POTASSIUM 3.7 mmol/L (3.5-5.1); TOTAL PROTEIN 5.79 g/dL (6.3-8.2)
[2021-08-14] MEDS: SODIUM CHLORIDE 0.9%-KCL 20 MEQ 1,000 ML IV SCH (07:51)
[2021-08-14] MEDS: COLACE PO PRN ×2 (08:39→21:16)
[2021-08-14] MEDS: LOTENSIN PO SCH (08:39)
[2021-08-14] MEDS: PRAVACHOL PO SCH (08:39)
[2021-08-14] MEDS: K-DUR PO SCH (08:39)
[2021-08-14] MEDS: THEO-DUR PO SCH ×2 (08:39→21:16)
[2021-08-14] MEDS: NORVASC PO SCH (08:39)
[2021-08-14] MEDS: LOVENOX SUBCUT SCH (08:40)
[2021-08-14] MEDS: TOPROL XL PO SCH ×2 (08:40→21:16)
[2021-08-14] MEDS: SYMBICORT 160-4.5 MCG INHALER IH SCH ×2 (08:40→21:17)
[2021-08-14] MEDS: FOLIC ACID PO SCH (08:40)
[2021-08-14] MEDS: XANAX PO PRN ×3 (09:14→21:17)
[2021-08-14] MEDS: PERCOCET 5-325 PO PRN (21:15)
[2021-08-14] MEDS: EFFEXOR XR PO SCH (21:16)
[2021-08-15] MEDS: XOPENEX 1.25 MG NEB SCH ×4 (00:10→20:50)
[2021-08-15] MEDS: SODIUM CHLORIDE 1,000 ML IV SCH (04:23)
[2021-08-15] MEDS: FERROUS SULFATE PO SCH ×2 (05:55→16:37)
[2021-08-15] MEDS: PRILOSEC PO SCH (05:55)
[2021-08-15] MEDS: SOLU-MEDROL 40 MG IVP SCH ×3 (07:33→20:46)
[2021-08-15] MEDS: SYMBICORT 160-4.5 MCG INHALER IH SCH ×2 (08:24→20:47)
[2021-08-15] MEDS: K-DUR PO SCH (08:25)
[2021-08-15] MEDS: FOLIC ACID PO SCH (08:25)
[2021-08-15] MEDS: THEO-DUR PO SCH ×2 (08:25→20:46)
[2021-08-15] MEDS: LOTENSIN PO SCH (08:25)
[2021-08-15] MEDS: PRAVACHOL PO SCH (08:25)
[2021-08-15] MEDS: TOPROL XL PO SCH ×2 (08:25→20:46)
[2021-08-15] MEDS: NORVASC PO SCH (08:25)
[2021-08-15] MEDS: LOVENOX SUBCUT SCH (08:26)
--- NOTE | 2021-08-15 08:38 | PCM.PROG ---
Date Seen by Provider: 08/14/21 Time Seen by Provider: 11:30 Subjective: Feeling much better today. no acute SOB or chest pain. Ambulating and eating Objective: Vitals: T=97.6 F, P=90, R=18, VY=868/75, SPO2=99 HEENT: []wnl Neck: []supple. Lungs: []mild rhonchi with no acute wheezes heard. Pt was seen sitting up comfortably in bed, eating. CVS: []RRR Abdomen: []benign Extremities: []no acute abnormality. Neurological: []no acute focal neuro deficit Skin: []no acute abnormality. Lab/Tests/Diagnostic Imaging: [] (1) COPD exacerbation: Status: Acute Code(s): J44.1 - Chronic obstructive pulmonary disease with (acute) exacerbation SNOMED Code(s): 634491592 (2) Pneumonia: Status: Acute Code(s): J18.9 - Pneumonia, unspecified organism SNOMED Code(s): 235351031 (3) Acute anxiety: Status: Acute Code(s): F41.9 - Anxiety disorder, unspecified SNOMED Code(s): 38259724 Plan: Continue Tx.
[2021-08-15] MEDS: MORPHINE 4 MG/ML SYRINGE IVP PRN ×2 (08:49→14:15)
--- NOTE | 2021-08-15 11:00 | PCM.PROG ---
Date Seen by Provider: 08/15/21 Time Seen by Provider: 10:58 Subjective: pt improving Objective: Vitals: T=97.6 F, P=90, R=21, ZQ=932/75, SPO2=96 HEENT: []conjunctiva clear Neck: []supple Lungs: [] clear anterior bilateral CVS: []RRR Abdomen: []nondistended Extremities: [] Neurological: []alert and oriented Skin: []pink Lab/Tests/Diagnostic Imaging: [] (1) COPD exacerbation: Status: Acute Code(s): J44.1 - Chronic obstructive pulmonary disease with (acute) exacerbation SNOMED Code(s): 553589450 (2) Pneumonia: Status: Acute Code(s): J18.9 - Pneumonia, unspecified organism SNOMED Code(s): 887110487 (3) Acute anxiety: Status: Acute Code(s): F41.9 - Anxiety disorder, unspecified SNOMED Code(s): 72552286 Plan: still waiting for ot/pt assessment, decrease morphine from 4 to [address] Luu at 19:00
[2021-08-15] MEDS: PERCOCET 5-325 PO PRN (20:46)
[2021-08-15] MEDS: XANAX PO PRN (20:46)
[2021-08-15] MEDS: EFFEXOR XR PO SCH (20:46)
[2021-08-16] MEDS: PERCOCET 5-325 PO PRN ×3 (03:21→14:23)
[2021-08-16] MEDS: MORPHINE 4 MG/ML SYRINGE IVP PRN (03:25)
[2021-08-16] MEDS: PRILOSEC PO SCH (05:42)
[2021-08-16] MEDS: FERROUS SULFATE PO SCH ×2 (05:42→17:34)
[2021-08-16] MEDS: SOLU-MEDROL 40 MG IVP SCH ×3 (05:42→20:56)
[2021-08-16] MEDS: XOPENEX 1.25 MG NEB SCH ×3 (07:15→20:00)
[2021-08-16] MEDS: SYMBICORT 160-4.5 MCG INHALER IH SCH ×2 (09:07→20:56)
[2021-08-16] MEDS: NORVASC PO SCH (09:08)
[2021-08-16] MEDS: K-DUR PO SCH (09:08)
[2021-08-16] MEDS: LOTENSIN PO SCH (09:09)
[2021-08-16] MEDS: PRAVACHOL PO SCH (09:09)
[2021-08-16] MEDS: TOPROL XL PO SCH ×2 (09:10→20:57)
[2021-08-16] MEDS: THEO-DUR PO SCH ×2 (09:10→20:57)
[2021-08-16] MEDS: FOLIC ACID PO SCH (09:10)
[2021-08-16] MEDS: LOVENOX SUBCUT SCH (09:11)
--- NOTE | 2021-08-16 11:07 | PCM.PROG ---
Date Seen by Provider: 08/16/21 Time Seen by Provider: 11:04 Subjective: pt improving Objective: Vitals: T=97 F, P=90, R=20, IT=773/78, SPO2=98 HEENT: []conjunctiva clear Neck: []supple Lungs: [] no respiratory distress CVS: []RRR Abdomen: []nondistended Extremities: [] Neurological: []alert and oriented Skin: []pink Lab/Tests/Diagnostic Imaging: [] (1) COPD exacerbation: Status: Acute Code(s): J44.1 - Chronic obstructive pulmonary disease with (acute) exacerbation SNOMED Code(s): 666672594 (2) Pneumonia: Status: Acute Code(s): J18.9 - Pneumonia, unspecified organism SNOMED Code(s): 673952422 (3) Acute anxiety: Status: Acute Code(s): F41.9 - Anxiety disorder, unspecified SNOMED Code(s): 84213965 Assessment: copd, pneumonia,htn, oxygen dependent, lung cancer Plan: await ot/pt eval, pt requesting hospital bed, scripts and potty chair upon discharge, will restart oral levaquin, continue steroids and neb tx care to Dr Bell davalos
[2021-08-16] MEDS: LEVAQUIN PO SCH (11:16)
[2021-08-16] MEDS: TYLENOL PO PRN (11:25)
[2021-08-16] MEDS: XANAX PO PRN ×2 (11:25→20:56)
[2021-08-16] MEDS: SODIUM CHLORIDE 1,000 ML IV SCH (14:07)
[2021-08-16] MEDS: EFFEXOR XR PO SCH (20:56)
[2021-08-17] MEDS: XOPENEX 1.25 MG NEB SCH (05:05)
[2021-08-17 05:26] LABS: HEMATOCRIT 29.7 % (37.0-47.0); HEMOGLOBIN 9.5 g/dl (12.0-16.0); MEAN CORPUSCULAR HEMOGLOBIN 32.2 pg (27.0-31.0); MEAN CORPUSCULAR VOLUME 100.7 fl (81.0-99.0); PLATELET COUNT 307 10^3/uL (140-440); RDW COEFFICIENT OF VARIATION 17.3 % (11.6-14.8); RED BLOOD COUNT 2.95 10^6/ul (4.20-5.40); WHITE BLOOD COUNT 23.79 K/ul (4.6-10.2)
[2021-08-17 05:29] VITALS: BP 164/84; TEMP 97.4
[2021-08-17 05:33] LABS: ANISOCYTOSIS NOT PRESENT (NOT PRESENT)
[2021-08-17 05:41] LABS: ALANINE AMINOTRANSFERASE 32.5 U/L (0-35); ALBUMIN 3.86 g/dL (3.5-5.0); ALKALINE PHOSPHATASE 56.6 U/L (53-141); ASPARTATE AMINO TRANSFERASE 30.3 U/L (14-36); BILIRUBIN,TOTAL 0.24 mg/dL (0.2-1.3); BLOOD UREA NITROGEN 15.3 mg/dL (7-17); CALCIUM 9.26 mg/dL (8.4-10.2); CARBON DIOXIDE 34.8 mmol/L (22-30.0); CHLORIDE 95.6 mmol/L (98-107); CREATININE 0.66 mg/dL (0.60-1.30); GLUCOSE 157.2 mg/dL (74-106); POTASSIUM 3.87 mmol/L (3.5-5.1); SODIUM 137.4 mmol/L (134.5-145); TOTAL PROTEIN 6.61 g/dL (6.3-8.2)
[2021-08-17] MEDS: FERROUS SULFATE PO SCH (05:46)
[2021-08-17] MEDS: PRILOSEC PO SCH (05:46)
[2021-08-17] MEDS: LEVAQUIN PO SCH (05:46)
[2021-08-17] MEDS: SOLU-MEDROL 40 MG IVP SCH (05:46)
[2021-08-17] MEDS: ZOFRAN 4 MG/2 ML IVP PRN (08:26)
[2021-08-17] MEDS: TOPROL XL PO SCH (09:09)
[2021-08-17] MEDS: SYMBICORT 160-4.5 MCG INHALER IH SCH (09:09)
[2021-08-17] MEDS: THEO-DUR PO SCH (09:09)
[2021-08-17] MEDS: PRAVACHOL PO SCH (09:09)
[2021-08-17] MEDS: LOTENSIN PO SCH (09:09)
[2021-08-17] MEDS: FOLIC ACID PO SCH (09:09)
[2021-08-17] MEDS: NORVASC PO SCH (09:09)
[2021-08-17] MEDS: K-DUR PO SCH (09:10)
[2021-08-17] MEDS: LOVENOX SUBCUT SCH (09:10)
[2021-08-17] MEDS: PERCOCET 5-325 PO PRN (09:10)
[2021-08-17] MEDS: COLACE PO PRN (09:55)
--- NOTE | 2021-08-17 10:36 | PCM.DC ---
Final Diagnosis: copd, oxygen dependent, pneumonia, deconditioning, lung cancer, hypokalemia Physical Exam Appearance: Well-appearing Ill-appearing: None Pain Distress: None Eyes: Conjunctiva clear ENT: Oropharynx normal Neck: Supple Respiratory: Airway patent and Breath sounds equal Cardiovascular: RRR GI/: Soft and Nontender Musculoskeletal: ROM intact Skin: Warm and Dry Neurological: Alert and Oriented Psychiatric: Affect appropriate (1) COPD exacerbation: Status: Acute Code(s): J44.1 - Chronic obstructive pulmonary disease with (acute) exacerbation SNOMED Code(s): 387568678 (2) Pneumonia: Status: Acute Code(s): J18.9 - Pneumonia, unspecified organism SNOMED Code(s): 767630106 (3) Acute anxiety: Status: Acute Code(s): F41.9 - Anxiety disorder, unspecified SNOMED Code(s): 59444395 Reason for Hospitalization: short of breath Prognosis/Condition at Discharge: prognosis fair, condition stable Medications at Discharge: Ambulatory Orders Medication Instructions Recorded alprazolam 0.5 mg tablet 0.5 mg PO QHS PRN 09/16/20 amlodipine 10 mg tablet 10 mg PO DAILY 11/12/20 benazepril 40 mg tablet 40 mg PO DAILY 11/12/20 folic acid 1 mg tablet 1 mg PO DAILY 11/12/20 pravastatin 40 mg tablet 40 mg PO DAILY 11/12/20 venlafaxine 75 mg capsule,extended 75 mg PO BEDTIME 11/12/20 release 24 hr omeprazole 20 mg capsule,delayed 40 mg PO QDAY 06/07/21 release budesonide-formoterol HFA 160 2 puff INHALATION BID #10.2 g 06/14/21 mcg-4.5 mcg/actuation aerosol inhaler (Symbicort) ipratropium 0.5 mg-albuterol 3 mg 3 ml INHALATION Q4-6H PRN #90 ml 06/24/21 (2.5 mg base)/3 mL nebulization soln albuterol sulfate 90 mcg/actuation 2 puff INHALATION Q6H PRN #8.5 g 07/01/21 aerosol inhaler aspirin 81 mg tablet 81 mg PO DAILY 08/05/21 ferrous sulfate 325 mg (65 mg 325 mg PO BID 08/05/21 iron) tablet metoprolol succinate 100 mg 50 mg PO BID 08/05/21 tablet,extended release 24 hr oxycodone-acetaminophen 5 mg-325 1 tab PO BID PRN 08/05/21 mg tablet Lab/Diagnostics: us legs showed no dvts, cta chest no PE, cxr showed +infiltrate Education Provided to Patient and Family: take your meds regularly as prescribed Follow-ups: see Agustina Mike for your appt on 08/24/21 Discharge Disposition: Home Hospital Course: pt had a prolonged hospital course, initiallly not doing very well and was made DNR, but has recovered to her baseline, although deconditioned and will require a hospital bed and potty chair Plan: continue all home meds and add Levaquin script 500mg po daily for 14 days
== END 2021-08-17 13:55 | disposition home or self-care (01) | DRG 194 ==
LOC: ED 05:43 → MEDSURG A 11:26
PROVIDERS: ADMIT Emergency Medicine Emergency Medical Services; ATTEND Emergency Medicine Emergency Medical Services
DX: R79.1 Abnormal coagulation profile; J45.40 Moderate persistent asthma, uncomplicated; R06.02 Shortness of breath; Z99.81 Dependence on supplemental oxygen; Z72.3 Lack of physical exercise; E87.6 Hypokalemia; Z87.891 Personal history of nicotine dependence; C34.90 Malignant neoplasm of unspecified part of unspecified bronchus or lung; F41.9 Anxiety disorder, unspecified; J18.9 Pneumonia, unspecified organism; J44.1 Chronic obstructive pulmonary disease with (acute) exacerbation; D64.9 Anemia, unspecified; Z20.822 Contact with and (suspected) exposure to COVID-19

== ENCOUNTER 2022-03-26 12:55 | Observation (INO) ==
--- NOTE | 2022-03-26 14:02 | ED.PDOC ---
General <AUDNREA CAMPEBLL - Last Filed: 03/27/22 20:16> ED Provider: Dr. AUNDREA CAMPBELL Chief Complaint: Respiratory Complaint Stated Complaint: cough for 2 weeks. Hx adenocarcinoma lungs dx 2019. Stopped smoking 2002. Last Chemo Jan 25. Was admitted put on vapotherm in august for bilateral pneu. uses 2 lpmnc No admit past 90 days Di9d not have radiation Time Seen by Provider: 03/26/22 13:30 Mode of Arrival: Walk-In Information Source: Patient and Family Exam Limitations: No limitations Primary Care Provider: PERLA OLIVERA APRN Nursing and Triage Documentation Reviewed and Agree: Yes Does patient meet sepsis criteria?: No System Inflammatory Response Syndrome: Not Applicable Sepsis Protocol: For patient's 13 years and over: Temp is 96.8 and below OR 101 and greater Pulse >90 BPM Resp >20/minute Acutely Altered Mental Status Are patient's symptoms suggestive of a new infection, such as: -Pneumonia -Skin, Soft Tissue -Endocarditis -UTI -Bone, Joint Infection -Implantable Device -Acute Abdominal Infection -Wound Infection -Meningitis -Blood Stream Catheter Infection -Unknown Review of Systems <AUNDREA CAMPBELL - Last Filed: 03/27/22 20:16> Review Of Systems Constitutional: Reports Malaise Eyes: Reports No symptoms Ears, Nose, Mouth, Throat: Reports No symptoms Respiratory: Reports Cough and Short of air; Denies Stridor or Wheezing Cardiac: Reports No symptoms GI: Reports No symptoms : Reports No symptoms Musculoskeletal: Reports No symptoms Skin: Reports No symptoms Neurological: Reports No symptoms Endocrine: Reports No symptoms Hematologic/Lymphatic: Reports No symptoms All Other Systems: Reviewed and Negative PFSH <AUNDREA CAMPBELL - Last Filed: 03/27/22 20:16> Medical History Acute anxiety Anemia Asthma Chronic obstructive pulmonary disease COVID-19 Defect of endplate of vertebra Depression Fatigue Folliculitis Gall bladder disease Hyperlipidemia Hypertension Hypertension (01/15/14) Hypokalemia Hypothyroidism Influenza vaccination administered at current visit Lung cancer Nausea and vomiting Need for vaccination against Streptococcus pneumoniae using pneumococcal conjugate vaccine 13 On antineoplastic chemotherapy Osteoporosis Stage 4 lung cancer Family History FATHER Diabetes No known health problems Mother Diabetes Other Emphysema lung Social History Smoking and tobacco status: Former smoker Tobacco: How many years used: 17 Second hand smoke exposure: Yes Alcohol intake: former Substance use type: does not use Eliza/voodoo: rastafarian Special eliza needs: No Agree to transfusion: Yes Adopted: No Caregiver/support person: Yes Household members: spouse Housing: house Lives independently: Yes Highest education level completed: 9th grade Financial difficulty paying for basics: not applicable service: No Current occupational status: unemployed Current occupational exposures/hazards: No Pets and animals: No Leisure activites: fishing History of recent travel: No Do you think of yourself as: straight/heterosexual Current gender identity: female Seatbelt use: always Helmet use: No Drives intoxicated or rides with intoxicated hazardous materials driver: No Water heater temperature set < 120 degrees: Yes Working smoke detector in home: Yes Fire extinguisher in home: Yes Carbon monoxide detector in home: No Firearms in home: Yes Firearms unloaded and locked: Yes Surgical History gall bladder History of tubal ligation Normal esophagogastroduodenoscopy (EGD) Status post appendectomy Status post cholecystectomy (04/27/16) Female Reproductive History Menstrual Hx Hysterectomy: No Hx Tubal Ligation: Yes Physical Exam <AUNDREA ADRIAN - Last Filed: 03/27/22 20:16> Physical Exam Appearance: Reports Ill-appearing Ill-appearing: Mild Pain Distress: None Eyes: Reports MILLA, EOMI and Conjunctiva clear ENT: Reports Ears normal, Nose normal and Oropharynx normal Neck: Supple Respiratory: Reports Airway patent, Breath sounds diminished and Rhonchi Cardiovascular: Reports RRR GI/: Reports Soft and Nontender Musculoskeletal: Reports Normal strength and No edema Skin: Reports Warm, Dry and Normal color Neurological: Reports Sensation intact, Motor intact, Alert and Oriented Psychiatric: Reports Affect appropriate and Mood appropriate Interpretation <AUNDREA CAMPBELL - Last Filed: 03/27/22 20:16> Radiology Interpretation Radiology Interpretation By: Radiologist Exam Interpreted: CXR Exam Interpreted: Portable CXR Xray Comments: bibasilar mild poss pneu EKG Interpretation Time of EKG #1: 14:26 Rate: Normal Rhythm: Sinus Ectopy: None [facility]: [place] ST Segment: Normal Interpretation: nac <LILIANA BRAY MD - Last Filed: 03/26/22 20:39> Radiology Interpretation Radiology Results: Positive Exam Interpreted: CT Scan Xray Comments: NEW NODULE RIGHT UPPER LOBE Critical Care Note <AUNDREA CAMPBELL - Last Filed: 03/27/22 20:16> Critical Care Note Total Critical Care Time (mins): 20 Comments: hx / pe / chart review / meds / re-evaluate / IV abx times two Course <AUNDREA CAMPBELL - Last Filed: 03/27/22 20:16> Course Hematology/Chemistry: 03/27/22 05:32 03/27/22 05:32 Orders, Labs, Meds: Lab Review 03/26/22 03/26/22 03/26/22 14:27 14:28 14:28 WBC 10.40 H RBC 3.69 L Hgb 11.3 L Hct 36.8 L MCV 99.7 H MCH 30.6 MCHC 30.7 L RDW Coeff of Taylor 12.9 Plt Count 311 Immature Gran % (Auto) 0.2 Neut % (Auto) 65.7 Lymph % (Auto) 22.6 [place] % (Auto) 6.0 Eos % (Auto) 5.0 Baso % (Auto) 0.5 Neut # (Auto) 6.8 Lymph # (Auto) 2.4 [place] # (Auto) 0.6 Eos # (Auto) 0.5 Baso # (Auto) 0.1 Immature Gran # (Auto) 0.0 Sodium 138.6 Potassium 4.08 Chloride 104.0 Carbon Dioxide 29.7 Anion Gap 8.98 BUN 16.5 Creatinine 0.81 Estimated GFR (MDRD) 72.00 BUN/Creatinine Ratio 20.37 Glucose 103.4 Lactic Acid Calcium 9.09 Total Bilirubin 0.32 AST 38.6 H ALT 30.1 Alkaline Phosphatase 84.5 Troponin I < 0.012 Total Protein 7.32 Albumin 4.22 Globulin 3.10 Albumin/Globulin Ratio 1.36 Procalcitonin D-Dimer SARS CoV-2 RNA Rapid COLLEEN Negative 03/26/22 03/26/22 03/26/22 14:28 14:28 14:28 WBC RBC Hgb Hct MCV MCH MCHC RDW Coeff of Taylor Plt Count Immature Gran % (Auto) Neut % (Auto) Lymph % (Auto) [place] % (Auto) Eos % (Auto) Baso % (Auto) Neut # (Auto) Lymph # (Auto) [place] # (Auto) Eos # (Auto) Baso # (Auto) Immature Gran # (Auto) Sodium Potassium Chloride Carbon Dioxide Anion Gap BUN Creatinine Estimated GFR (MDRD) BUN/Creatinine Ratio Glucose Lactic Acid 0.57 L Calcium Total Bilirubin AST ALT Alkaline Phosphatase Troponin I Total Protein Albumin Globulin Albumin/Globulin Ratio Procalcitonin 0.17 H D-Dimer 721.35 H SARS CoV-2 RNA Rapid COLLEEN Orders Category Date Time Status ADMIT PATIENT INPATIENT .TO MEDSURG (MONITORED BED) ADMISSION 03/26/22 20:40 Active EKG-(ED ONLY) Stat CARDIO 03/26/22 14:09 Completed METERED DOSE INHALATION Routine CARDIO 03/26/22 20:44 Active NEBULIZER TREATMENT Routine CARDIO 03/26/22 20:49 Active NEBULIZER TREATMENT Stat CARDIO 03/26/22 14:09 Completed NEBULIZER TREATMENT Stat CARDIO 03/26/22 17:54 Completed OXYGEN Routine CARDIO 03/26/22 20:42 Active ACTIVITY .Up With Assistance CARE 03/26/22 20:41 Active INTAKE & OUTPUT Q8HR CARE 03/26/22 20:41 Active IP: INSERT SALINE LOCK ONCE CARE 03/26/22 20:41 Active NPO REMINDER: IMAGING ONCE CARE 03/26/22 18:46 Completed TELEMETRY MONITORING TELE CARE 03/26/22 20:40 Active VITAL SIGNS Q8HR CARE 03/26/22 20:41 Active ED IV/MEDIPORT/POWERPORT .ONCE EMERGENCY 03/26/22 14:09 Active BLOOD CULTURE (ED ONLY) Stat LAB 03/26/22 14:28 Results CBC W/ AUTO DIFF DAILY@0600 LAB 03/27/22 05:32 Completed CBC W/ AUTO DIFF DAILY@0600 LAB 03/28/22 06:00 Ordered CBC W/ AUTO DIFF Stat LAB 03/26/22 14:28 Completed CMP [COMPREHENSIVE METABOLIC PANEL] Stat LAB 03/26/22 14:28 Completed COMPREHENSIVE METABOLIC PANEL DAILY@0600 LAB 03/27/22 05:32 Completed COMPREHENSIVE METABOLIC PANEL DAILY@0600 LAB 03/28/22 06:00 Ordered COVID [SARS COV-2 RNA RAPID COLLEEN] Stat LAB 03/26/22 14:27 Completed D-DIMER Stat LAB 03/26/22 14:28 Completed LACTIC ACID Stat LAB 03/26/22 14:28 Completed PROCALCITONIN Stat LAB 03/26/22 14:28 Completed TROPONIN I Stat LAB 03/26/22 14:28 Completed 0.9 % Sodium Chloride [Saline Flush] MEDS 03/26/22 14:09 Active 1 syr IVF PRN PRN Albuterol Inhaler(with Spacer) [Ventolin Hfa (Per Puff- MEDS 03/26/22 20:44 Active with Spacer)] 2 puff IH Q6H PRN Albuterol Sulfate 0.083% Neb [Albuterol 0.083% Neb] MEDS 03/26/22 17:54 Discontinued 2.5 mg NEB ONCE STA Alprazolam [Xanax] MEDS 03/26/22 21:00 Discontinued 0.5 mg PO BID Amlodipine Besylate [Norvasc] MEDS 03/27/22 09:00 Active 5 mg PO DAILY Aspirin [Aspirin Chewable] MEDS 03/27/22 09:00 Discontinued 81 mg PO DAILY Benazepril HCl [Lotensin] MEDS 03/27/22 09:00 Active 10 mg PO DAILY Budesonide/Formoterol Fumarate [Symbicort 160-4.5 Mcg MEDS 03/26/22 21:00 Active Inhaler] 2 puff IH BID Cefepime 2 gm/D5w [Maxipime 2 gm/50 ml D5w] MEDS 03/26/22 16:28 Discontinued 2 gm in 50 ml IV ONCE Cefepime 2 gm/D5w [Maxipime 2 gm/50 ml D5w] MEDS 03/27/22 05:00 Discontinued 2 gm in 50 ml IV Q12H Enoxaparin Sodium [Lovenox] MEDS 03/27/22 09:00 Active 40 mg SUBCUT DAILY Folic Acid MEDS 03/27/22 09:00 Active 1 mg PO DAILY Ipratropium/Albuterol Neb [Duoneb] MEDS 03/26/22 14:09 Discontinued 3 ml NEB ONCE STA Ipratropium/Albuterol Neb [Duoneb] MEDS 03/27/22 00:00 Active 3 ml NEB RTQ6H Methylprednisolone Sod Succ/Pf [Solu-Medrol 40 mg] MEDS 03/26/22 21:00 Di scontinued 40 mg IVP Q12HR Metoprolol Succinate [Toprol Xl] MEDS 03/26/22 21:00 Discontinued 25 mg PO BID Omeprazole [Prilosec] MEDS 03/27/22 09:00 Active 40 mg PO QDAC Oxycodone-Acetaminophen 10-325 [Percocet 10-325] MEDS 03/26/22 20:44 Active 1 tab PO Q8HR PRN Pravastatin Sodium [Pravachol] MEDS 03/27/22 09:00 Active 40 mg PO DAILY Vancomycin/Water For Inj (Peg) [Vancomycin 1.25 gm/250 MEDS 03/26/22 19:13 Discontinued ml Bag] 1.25 gm in 250 ml IV ONCE Venlafaxine HCl [Effexor Xr] MEDS 03/26/22 21:00 Active 75 mg PO BEDTIME mupirocin calcium MEDS 03/27/22 09:00 Discontinued 1 applic TP DAILY RESUSCITATION STATUS Routine OTHERS 03/26/22 20:[address] CHEST PE PROTOCOL Stat RADS 03/26/22 18:46 Completed CXR [CHEST, 1V AP ONLY] Stat RADS 03/26/22 14:09 Completed Medications Generic Name Dose Route Start Last Admin Trade Name Freq PRN Reason Stop Dose Admin Albuterol Sulfate 2 puff 03/26/22 20:44 Albuterol Sulfate (Ventolin Hfa) 18 Gm 1 Puff With Spacer IH Q6H PRN Wheezing Albuterol/Ipratropium 3 ml 03/27/22 00:00 03/27/22 17:00 Ipratropium/Albuterol Vial.Neb NEB 3 ml RTQ6H [place]A Administration Alprazolam 1 mg 03/27/22 21:00 Alprazolam 0.5 Mg Tablet PO BID CAR[place] Amlodipine Besylate 5 mg 03/27/22 09:00 03/27/22 08:39 Amlodipine Besylate 5 Mg Tablet PO 5 mg DAILY [place] Administration Aspirin 81 mg 03/28/22 08:30 Aspirin 81 Mg Tab.Chew PO DAILYWM [place] Benazepril HCl 10 mg 03/27/22 09:00 03/27/22 08:39 Benazepril Hcl 10 Mg Tablet PO 10 mg DAILY [place] Administration Budesonide/Formoterol Fumarate 2 puff 03/26/22 21:00 03/27/22 08:40 Budesonide/Formoterol Fumarate 160/4.5 Mcg Inhaler IH 2 puff BID CAROLA Administration Enoxaparin Sodium 40 mg 03/27/22 09:00 03/27/22 08:39 Enoxaparin Sodium 40 Mg/0.4 Ml Syr SUBCUT 40 mg DAILY CAR[place]A Administration Folic Acid 1 mg 03/27/22 09:00 03/27/22 08:39 Folic Acid 1 Mg Tablet PO 1 mg DAILY CAR[place]A Administration Heparin Sodium (Beef Lung) 30 unit 03/26/22 22:01 03/27/22 14:07 Heparin Sodium,Porcine 30 Unit/3 Ml Syringe IVF 30 unit PRN PRN Administration after medication administratio Hydrocortisone Sodium Succinate 60 mg 03/28/22 09:00 Hydrocortisone Sod Succ/Pf 100 Mg/2 Ml Vial IVP DAILY [facility] CEFEPIME 2 GM/D5W 2 gm in 50 mls @ 100 mls/hr 03/27/22 13:00 03/27/22 12:42 Maxipime 2 Gm/50 Ml D5w IV 03/30/22 12:59 100 mls/hr Q8HR [place] Administration Insulin Human Regular 0 unit 03/27/22 12:32 Insulin Regular, Human 100 Unit/Ml (3ml) Vial SUBCUT PRN PRN Hyperglycemia Protocol Metoprolol Succinate 50 mg 03/27/22 21:00 Metoprolol Succinate 50 Mg Tab.Er.24h PO BID [facility] Omeprazole 40 mg 03/27/22 09:00 03/27/22 08:38 Omeprazole 20 Mg Capsule.Dr PO 40 mg QDAC [place] Administration Oxycodone/Acetaminophen 1 tab 03/26/22 20:44 03/26/22 21:26 Oxycodone/Acetaminophen 10/325 Mg Tablet PO 1 tab Q8HR PRN Administration MODERATE PAIN Pravastatin Sodium 40 mg 03/27/22 09:00 03/27/22 08:39 Pravastatin Sodium 40 Mg Tablet PO 40 mg DAILY [place] Administration Saccharomyces Boulardii 250 mg 03/27/22 10:00 03/27/22 10:44 Saccharomyces Boulardii 250 Mg Capsule PO 250 mg BID [place]A Administration Sodium Chloride 1 syr 03/26/22 14:09 03/26/22 22:17 0.9% Sodium Chloride 10 Ml Disp.Syrin IVF 1 syr PRN PRN Administration To flush IV Venlafaxine HCl 75 mg 03/26/22 21:00 03/26/22 21:56 Venlafaxine Hcl 75 Mg Cap.Er.24h PO 75 mg BEDTIME [place]A Administration Discontinued Medications Generic Name Dose Route Start Last Admin Trade Name Freq PRN Reason Stop Dose Admin Albuterol Sulfate 2.5 mg 03/26/22 17:54 03/26/22 18:05 Albuterol Sulfate 0.083% Vial.Snehal PIERCE 03/26/22 17:55 2.5 mg ONCE STA Administration Albuterol/Ipratropium 3 ml 03/26/22 14:09 03/26/22 14:25 Ipratropium/Albuterol Vial.Snehal PIERCE 03/26/22 14:10 3 ml ONCE STA Administration Alprazolam 0.5 mg 03/26/22 21:00 03/27/22 08:39 Alprazolam 0.5 Mg Tablet PO 0.5 mg BID CAR[place]A Administration Aspirin 81 mg 03/27/22 09:00 03/27/22 08:38 Aspirin 81 Mg Tab.Chew PO 81 mg DAILY [place] Administration Hydrocortisone Sodium Succinate 60 mg 03/27/22 20:00 Hydrocortisone Sod Succ/Pf 100 Mg/2 Ml Vial IVP 03/27/22 20:01 ONCE ONE CEFEPIME 2 GM/D5W 2 gm in 50 mls @ 100 mls/hr 03/26/22 16:28 03/26/22 16:44 Maxipime 2 Gm/50 Ml D5w IV 03/26/22 16:57 100 mls/hr ONCE ONE Administration VANCOMYCIN/WATER FOR INJ (PEG) 1.25 gm in 250 mls @ 250 mls/hr 03/26/22 19:13 03/26/22 19:34 Vancomycin 1.25 Gm/250 Ml Bag IV 03/26/22 20:12 250 mls/hr ONCE ONE Administration CEFEPIME 2 GM/D5W 2 gm in 50 mls @ 100 mls/hr 03/27/22 05:00 03/27/22 05:33 Maxipime 2 Gm/50 Ml D5w IV 03/30/22 04:59 100 mls/hr Q12H [place] Administration Lorazepam 0.5 mg 03/27/22 12:31 03/27/22 12:42 Lorazepam Inj 2 Mg/Ml Vial IVP 03/27/22 12:32 0.5 mg ONCE STA Administration Methylprednisolone Sodium Succinate 40 mg 03/26/22 21:00 03/27/22 08:45 Methylprednisolone Sod Succ/Pf 40 Mg/Ml Vial IVP 40 mg Q12HR [place] Administration Metoprolol Succinate 25 mg 03/26/22 21:00 03/27/22 08:38 Metoprolol Succinate 25 Mg Tab.Er.24h PO 25 mg BID [place] Administration Metoprolol Succinate 50 mg 03/27/22 09:00 03/27/22 09:10 Metoprolol Succinate 50 Mg Tab.Er.24h PO Not Given BID CAROLA Metoprolol Succinate 25 mg 03/27/22 09:00 03/27/22 09:29 Metoprolol Succinate 25 Mg Tab.Er.24h PO 03/27/22 09:01 25 mg ONCE ONE Administration Non-Formulary Medication 1 applic 03/27/22 09:00 03/27/22 08:41 Mupirocin Calcium TP Not Given DAILY [facility] Vital Signs: Temp Pulse Resp BP Pulse Ox 03/26/22 12:59 97.9 F 93 22 H 139/85 99 ok with in room discussed ddx - pne, copd exac , pe discussed studies - labs / culture / imaging / with procal elevated will start broad spectum antibiotic as pt hs lung cancer will also add dimer as wbc and cxr not fully explain connition 550 dimer - order overlooked - added Dimer elevated - Discussed ct pe protocalR/B and pt agrees / in room Added vancomycin to cover staphas pt has left upper chest power point - externally does not look infected Dx early bibasilar pneu copd exacerbation adenocarcinoma of lung Discussed shift change with pt and Dr Mcgee <LILIANA MCGEE-MD MILTON - Last Filed: 03/26/22 20:39> Course Orders, Labs, Meds: Lab Review 03/26/22 03/26/22 03/26/22 14:27 14:28 14:28 WBC 10.40 H RBC 3.69 L Hgb 11.3 L Hct 36.8 L MCV 99.7 H MCH 30.6 MCHC 30.7 L RDW Coeff of Taylor 12.9 Plt Count 311 Immature Gran % (Auto) 0.2 Neut % (Auto) 65.7 Lymph % (Auto) 22.6 [place] % (Auto) 6.0 Eos % (Auto) 5.0 Baso % (Auto) 0.5 Neut # (Auto) 6.8 Lymph # (Auto) 2.4 [place] # (Auto) 0.6 Eos # (Auto) 0.5 Baso # (Auto) 0.1 Immature Gran # (Auto) 0.0 Sodium 138.6 Potassium 4.08 Chloride 104.0 Carbon Dioxide 29.7 Anion Gap 8.98 BUN 16.5 Creatinine 0.81 Estimated GFR (MDRD) 72.00 BUN/Creatinine Ratio 20.37 Glucose 103.4 Lactic Acid Calcium 9.09 Total Bilirubin 0.32 AST 38.6 H ALT 30.1 Alkaline Phosphatase 84.5 Troponin I < 0.012 Total Protein 7.32 Albumin 4.22 Globulin 3.10 Albumin/Globulin Ratio 1.36 Procalcitonin D-Dimer SARS CoV-2 RNA Rapid COLLEEN Negative 03/26/22 03/26/22 03/26/22 14:28 14:28 14:28 WBC RBC Hgb Hct MCV MCH MCHC RDW Coeff of Taylor Plt Count Immature Gran % (Auto) Neut % (Auto) Lymph % (Auto) [place] % (Auto) Eos % (Auto) Baso % (Auto) Neut # (Auto) Lymph # (Auto) [place] # (Auto) Eos # (Auto) Baso # (Auto) Immature Gran # (Auto) Sodium Potassium Chloride Carbon Dioxide Anion Gap BUN Creatinine Estimated GFR (MDRD) BUN/Creatinine Ratio Glucose Lactic Acid 0.57 L Calcium Total Bilirubin AST ALT Alkaline Phosphatase Troponin I Total Protein Albumin Globulin Albumin/Globulin Ratio Procalcitonin 0.17 H D-Dimer 721.35 H SARS CoV-2 RNA Rapid COLLEEN Orders Category Date Time Status ADMIT PATIENT INPATIENT .TO MEDSURG (MONITORED BED) ADMISSION 03/26/22 20 :40 Active EKG-(ED ONLY) Stat CARDIO 03/26/22 14:09 Completed METERED DOSE INHALATION Routine CARDIO 03/26/22 20:44 Active NEBULIZER TREATMENT Routine CARDIO 03/26/22 20:49 Active NEBULIZER TREATMENT Stat CARDIO 03/26/22 14:09 Completed NEBULIZER TREATMENT Stat CARDIO 03/26/22 17:54 Completed OXYGEN Routine CARDIO 03/26/22 20:42 Active ACTIVITY .Up With Assistance CARE 03/26/22 20:41 Active INTAKE & OUTPUT Q8HR CARE 03/26/22 20:41 Active IP: INSERT SALINE LOCK ONCE CARE 03/26/22 20:41 Active NPO REMINDER: IMAGING ONCE CARE 03/26/22 18:46 Completed TELEMETRY MONITORING TELE CARE 03/26/22 20:40 Active VITAL SIGNS Q8HR CARE 03/26/22 20:41 Active ED IV/MEDIPORT/POWERPORT .ONCE EMERGENCY 03/26/22 14:09 Active BLOOD CULTURE (ED ONLY) Stat LAB 03/26/22 14:28 Results CBC W/ AUTO DIFF DAILY@0600 LAB 03/27/22 05:32 Completed CBC W/ AUTO DIFF DAILY@0600 LAB 03/28/22 06:00 Ordered CBC W/ AUTO DIFF Stat LAB 03/26/22 14:28 Completed CMP [COMPREHENSIVE METABOLIC PANEL] Stat LAB 03/26/22 14:28 Completed COMPREHENSIVE METABOLIC PANEL DAILY@0600 LAB 03/27/22 05:32 Completed COMPREHENSIVE METABOLIC PANEL DAILY@0600 LAB 03/28/22 06:00 Ordered COVID [SARS COV-2 RNA RAPID COLLEEN] Stat LAB 03/26/22 14:27 Completed D-DIMER Stat LAB 03/26/22 14:28 Completed LACTIC ACID Stat LAB 03/26/22 14:28 Completed PROCALCITONIN Stat LAB 03/26/22 14:28 Completed TROPONIN I Stat LAB 03/26/22 14:28 Completed 0.9 % Sodium Chloride [Saline Flush] MEDS 03/26/22 14:09 Active 1 syr IVF PRN PRN Albuterol Inhaler(with Spacer) [Ventolin Hfa (Per Puff- MEDS 03/26/22 20:44 Active with Spacer)] 2 puff IH Q6H PRN Albuterol Sulfate 0.083% Neb [Albuterol 0.083% Neb] MEDS 03/26/22 17:54 Discontinued 2.5 mg NEB ONCE STA Alprazolam [Xanax] MEDS 03/26/22 21:00 Discontinued 0.5 mg PO BID Amlodipine Besylate [Norvasc] MEDS 03/27/22 09:00 Active 5 mg PO DAILY Aspirin [Aspirin Chewable] MEDS 03/27/22 09:00 Discontinued 81 mg PO DAILY Benazepril HCl [Lotensin] MEDS 03/27/22 09:00 Active 10 mg PO DAILY Budesonide/Formoterol Fumarate [Symbicort 160-4.5 Mcg MEDS 03/26/22 21:00 Active Inhaler] 2 puff IH BID Cefepime 2 gm/D5w [Maxipime 2 gm/50 ml D5w] MEDS 03/26/22 16:28 Discontinued 2 gm in 50 ml IV ONCE Cefepime 2 gm/D5w [Maxipime 2 gm/50 ml D5w] MEDS 03/27/22 05:00 Discontinued 2 gm in 50 ml IV Q12H Enoxaparin Sodium [Lovenox] MEDS 03/27/22 09:00 Active 40 mg SUBCUT DAILY Folic Acid MEDS 03/27/22 09:00 Active 1 mg PO DAILY Ipratropium/Albuterol Neb [Duoneb] MEDS 03/26/22 14:09 Discontinued 3 ml NEB ONCE STA Ipratropium/Albuterol Neb [Duoneb] MEDS 03/27/22 00:00 Active 3 ml NEB RTQ6H Methylprednisolone Sod Succ/Pf [Solu-Medrol 40 mg] MEDS 03/26/22 21:00 Discontinued 40 mg IVP Q12HR Metoprolol Succinate [Toprol Xl] MEDS 03/26/22 21:00 Discontinued 25 mg PO BID Omeprazole [Prilosec] MEDS 03/27/22 09:00 Active 40 mg PO QDAC Oxycodone-Acetaminophen 10-325 [Percocet 10-325] MEDS 03/26/22 20:44 Active 1 tab PO Q8HR PRN Pravastatin Sodium [Pravachol] MEDS 03/27/22 09:00 Active 40 mg PO DAILY Vancomycin/Water For Inj (Peg) [Vancomycin 1.25 gm/250 MEDS 03/26/22 19:13 Discontinued ml Bag] 1.25 gm in 250 ml IV ONCE Venlafaxine HCl [Effexor Xr] MEDS 03/26/22 21:00 Active 75 mg PO BEDTIME mupirocin calcium MEDS 03/27/22 09:00 Discontinued 1 applic TP DAILY RESUSCITATION STATUS Routine OTHERS 03/26/22 20:[address] CHEST PE PROTOCOL Stat RADS 03/26/22 18:46 Completed CXR [CHEST, 1V AP ONLY] Stat RADS 03/26/22 14:09 Completed Medications Generic Name Dose Route Start Last Admin Trade Name Freq PRN Reason Stop Dose Admin Albuterol Sulfate 2 puff 03/26/22 20:44 Albuterol Sulfate (Ventolin Hfa) 18 Gm 1 Puff With Spacer IH Q6H PRN Wheezing Albuterol/Ipratropium 3 ml 03/27/22 00:00 03/27/22 17:00 Ipratropium/Albuterol Vial.Neb NEB 3 ml RTQ6H [place] Administration Alprazolam 1 mg 03/27/22 21:00 Alprazolam 0.5 Mg Tablet PO BID [place] Amlodipine Besylate 5 mg 03/27/22 09:00 03/27/22 08:39 Amlodipine Besylate 5 Mg Tablet PO 5 mg DAILY [place] Administration Aspirin 81 mg 03/28/22 08:30 Aspirin 81 Mg Tab.Chew PO DAILYWM [place] Benazepril HCl 10 mg 03/27/22 09:00 03/27/22 08:39 Benazepril Hcl 10 Mg Tablet PO 10 mg DAILY [place] Administration Budesonide/Formoterol Fumarate 2 puff 03/26/22 21:00 03/27/22 08:40 Budesonide/Formoterol Fumarate 160/4.5 Mcg Inhaler IH 2 puff BID [place] Administration Enoxaparin Sodium 40 mg 03/27/22 09:00 03/27/22 08:39 Enoxaparin Sodium 40 Mg/0.4 Ml Syr SUBCUT 40 mg DAILY [place] Administration Folic Acid 1 mg 03/27/22 09:00 03/27/22 08:39 Folic Acid 1 Mg Tablet PO 1 mg DAILY [place] Administration Heparin Sodium (Beef Lung) 30 unit 03/26/22 22:01 03/27/22 14:07 Heparin Sodium,Porcine 30 Unit/3 Ml Syringe IVF 30 unit PRN PRN Administration after medication administratio Hydrocortisone Sodium Succinate 60 mg 03/28/22 09:00 Hydrocortisone Sod Succ/Pf 100 Mg/2 Ml Vial IVP DAILY [facility] CEFEPIME 2 GM/D5W 2 gm in 50 mls @ 100 mls/hr 03/27/22 13:00 03/27/22 12:42 Maxipime 2 Gm/50 Ml D5w IV 03/30/22 12:59 100 mls/hr Q8HR [place] Administration Insulin Human Regular 0 unit 03/27/22 12:32 Insulin Regular, Human 100 Unit/Ml (3ml) Vial SUBCUT PRN PRN Hyperglycemia Protocol Metoprolol Succinate 50 mg 03/27/22 21:00 Metoprolol Succinate 50 Mg Tab.Er.24h PO BID [place] Omeprazole 40 mg 03/27/22 09:00 03/27/22 08:38 Omeprazole 20 Mg Capsule.Dr PO 40 mg QDAC [place] Administration Oxycodone/Acetaminophen 1 tab 03/26/22 20:44 03/26/22 21:26 Oxycodone/Acetaminophen 10/325 Mg Tablet PO 1 tab Q8HR PRN Administration MODERATE PAIN Pravastatin Sodium 40 mg 03/27/22 09:00 03/27/22 08:39 Pravastatin Sodium 40 Mg Tablet PO 40 mg DAILY [place] Administration Saccharomyces Boulardii 250 mg 03/27/22 10:00 03/27/22 10:44 Saccharomyces Boulardii 250 Mg Capsule PO 250 mg BID [place] Administration Sodium Chloride 1 syr 03/26/22 14:09 03/26/22 22:17 0.9% Sodium Chloride 10 Ml Disp.Syrin IVF 1 syr PRN PRN Administration To flush IV Venlafaxine HCl 75 mg 03/26/22 21:00 03/26/22 21:56 Venlafaxine Hcl 75 Mg Cap.Er.24h PO 75 mg BEDTIME [place]OL[facility] Administration Discontinued Medications Generic Name Dose Route Start Last Admin Trade Name Freq PRN Reason Stop Dose Admin Albuterol Sulfate 2.5 mg 03/26/22 17:54 03/26/22 18:05 Albuterol Sulfate 0.083% Vial.[facility] 03/26/22 17:55 2.5 mg ONCE STA Administration Albuterol/Ipratropium 3 ml 03/26/22 14:09 03/26/22 14:25 Ipratropium/Albuterol Vial.[facility] 03/26/22 14:10 3 ml ONCE STA Administration Alprazolam 0.5 mg 03/26/22 21:00 03/27/22 08:39 Alprazolam 0.5 Mg Tablet PO 0.5 mg BID [place]OL[place] Administration Aspirin 81 mg 03/27/22 09:00 03/27/22 08:38 Aspirin 81 Mg Tab.Chew PO 81 mg DAILY [place] Administration Hydrocortisone Sodium Succinate 60 mg 03/27/22 20:00 Hydrocortisone Sod Succ/Pf 100 Mg/2 Ml Vial IVP 03/27/22 20:01 ONCE ONE CEFEPIME 2 GM/D5W 2 gm in 50 mls @ 100 mls/hr 03/26/22 16:28 03/26/22 16:44 Maxipime 2 Gm/50 Ml D5w IV 03/26/22 16:57 100 mls/hr ONCE ONE Administration VANCOMYCIN/WATER FOR INJ (PEG) 1.25 gm in 250 mls @ 250 mls/hr 03/26/22 19:13 03/26/22 19:34 Vancomycin 1.25 Gm/250 Ml Bag IV 03/26/22 20:12 250 mls/hr ONCE ONE Administration CEFEPIME 2 GM/D5W 2 gm in 50 mls @ 100 mls/hr 03/27/22 05:00 03/27/22 05:33 Maxipime 2 Gm/50 Ml D5w IV 03/30/22 04:59 100 mls/hr Q12H CAROLA Administration Lorazepam 0.5 mg 03/27/22 12:31 03/27/22 12:42 Lorazepam Inj 2 Mg/Ml Vial IVP 03/27/22 12:32 0.5 mg ONCE STA Administration Methylprednisolone Sodium Succinate 40 mg 03/26/22 21:00 03/27/22 08:45 Methylprednisolone Sod Succ/Pf 40 Mg/Ml Vial IVP 40 mg Q12HR CAROLA Administration Metoprolol Succinate 25 mg 03/26/22 21:00 03/27/22 08:38 Metoprolol Succinate 25 Mg Tab.Er.24h PO 25 mg BID CAROLA Administration Metoprolol Succinate 50 mg 03/27/22 09:00 03/27/22 09:10 Metoprolol Succinate 50 Mg Tab.Er.24h PO Not Given BID CAROLA Metoprolol Succinate 25 mg 03/27/22 09:00 03/27/22 09:29 Metoprolol Succinate 25 Mg Tab.Er.24h PO 03/27/22 09:01 25 mg ONCE ONE Administration Non-Formulary Medication 1 applic 03/27/22 09:00 03/27/22 08:41 Mupirocin Calcium TP Not Given DAILY CAROLA Vital Signs: Temp Pulse Resp BP Pulse Ox 03/26/22 12:59 97.9 F 93 22 H 139/85 99 Discharge Plan Discharge Patient Disposition: ADMITTED INPATIENT Discharge Problem: COPD exacerbation Did you review [place] TRACK EQUIPMENT 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
[2022-03-26] MEDS ORDERED: DUONEB NEB STA (14:09)
[2022-03-26 14:34] LABS: BASOPHILS # (AUTO) 0.1 K/uL (0-0.2); BASOPHILS % (AUTO) 0.5 % (0.0-3.0); EOSINOPHILS # (AUTO) 0.5 K/ul (0.0-0.7); HEMATOCRIT 36.8 % (37.0-47.0); HEMOGLOBIN 11.3 g/dl (12.0-16.0); IMMATURE GRANULOCYTE % (AUTO) 0.2 % (0.0-5.0); LYMPHOCYTES # (AUTO) 2.4 K/uL (0.60-3.4); LYMPHOCYTES % (AUTO) 22.6 (10.0-50.0); MEAN CORPUSCULAR HEMOGLOBIN 30.6 pg (27.0-31.0); MEAN CORPUSCULAR HGB CONC 30.7 (31.8-35.4); MEAN CORPUSCULAR VOLUME 99.7 fl (81.0-99.0); MONOCYTES # (AUTO) 0.6 K/uL (0.4-2.0); NEUTROPHILS # (AUTO) 6.8 K/ul (2.0-6.9); NEUTROPHILS % (AUTO) 65.7 % (42.2-75.2); PLATELET COUNT 311 10^3/uL (140-440); RDW COEFFICIENT OF VARIATION 12.9 % (11.6-14.8); RED BLOOD COUNT 3.69 10^6/ul (4.20-5.40)
[2022-03-26 14:43] LABS: ALANINE AMINOTRANSFERASE 30.1 U/L (0-35); ALBUMIN 4.22 g/dL (3.5-5.0); ALKALINE PHOSPHATASE 84.5 U/L (53-141); ASPARTATE AMINO TRANSFERASE 38.6 U/L (14-36); BILIRUBIN,TOTAL 0.32 mg/dL (0.2-1.3); BLOOD UREA NITROGEN 16.5 mg/dL (7-17); CALCIUM 9.09 mg/dL (8.4-10.2); CARBON DIOXIDE 29.7 mmol/L (22-30.0); CREATININE 0.81 mg/dL (0.60-1.30); GLUCOSE 103.4 mg/dL (74-106); POTASSIUM 4.08 mmol/L (3.5-5.1); SODIUM 138.6 mmol/L (134.5-145); TOTAL PROTEIN 7.32 g/dL (6.3-8.2)
[2022-03-26 14:56] LABS: TROPONIN I < 0.012 ng/ml (0.0000-0.120)
[2022-03-26 15:04] LABS: SARS COV-2 RNA RAPID NAAT NEGATIVE (NEGATIVE)
--- NOTE | 2022-03-26 15:42 | DI ---
EXAM: CHEST FRONTAL VIEW HISTORY: Chronic obstructive pulmonary disease, cough COMPARISON: 08/11/2021 FINDINGS: Heart size remains within normal limits. Left-sided port catheter is stable ending over t he cavoatrial junction. There is diffuse, chronic appearing interstitial accentuation. Lungs are hy perinflated and there is relative lucency of the lung zones suggesting pulmonary emphysema. Mild bib asilar density greater than previously seen may represent areas of pneumonia, scarring or less likely atelectasis. There is no visible pleural fluid, pneumothorax or vascular congestion. IMPRESSION: Chronic obstructive pulmonary disease. Mild bibasilar density greater than previously se en may represent areas of pneumonia, scarring or less likely atelectasis.
[2022-03-26] MEDS ORDERED: MAXIPIME 2 GM/50 ML D5W 2 GM/50 ML BAG IV ONE (16:28)
[2022-03-26] MEDS ORDERED: ALBUTEROL 0.083% NEB NEB STA (17:54)
[2022-03-26] MEDS ORDERED: VANCOMYCIN 1.25 GM/250 ML BAG 1.25 GM/250 ML BAG IV ONE (19:13)
--- NOTE | 2022-03-26 20:24 | CT ---
EXAM: CTA CHEST HISTORY: Elevated D-dimer COMPARISON: CT scan chest of 01/31/2019 FINDINGS: Postcontrast helical imaging was obtained through the thorax utilizing 2.5-mm collimation. Sagittal and coronal reconstructions were imaged and reviewed. Source images were utilized create rotating 3-D MIP images. Is unremarkable there are subcentimeter mediastinal lymph nodes. The heart silhouette is normal in size with mild coronary artery calcification. There is left atrial enlargem ent. Listhesis. Edematous changes. There is a new. Ill-defined nodular opacity within the right u pper lobe measuring 1.6 x 1.1 cm. The scarring versus atelectasis anteriorly with the stable 9 mm nod ule at the left lung base. Decreased atelectasis/scarring in the lingula. Stable appearing left upp er lobe nodule noted medially measuring 11 mm.. Bone windows reveals no lytic or blastic lesions. S table tiny hypoattenuating lesion within the left lobe of liver.. Moderate sized hiatal hernia. IMPRESSION: No evidence of pulmonary embolus. Emphysematous changes. New nodular opacity right upper lobe.. Consider PET scan for further characterization. All CT scans are performed using dose optimization techniques as appropriate to the performed exam an d include at least one of the following: Automated exposure control, adjustment of the mA and/or kV according t o size, and the use of iterative reconstruction technique.
[2022-03-26] MEDS ORDERED: VENTOLIN HFA (PER PUFF-WITH SPACER) IH PRN (20:44)
[2022-03-26] MEDS: PERCOCET 10-325 PO PRN (21:26)
[2022-03-26] MEDS: EFFEXOR XR PO SCH (21:56)
[2022-03-26] MEDS: SYMBICORT 160-4.5 MCG INHALER IH SCH (21:57)
[2022-03-26] MEDS: TOPROL XL PO SCH (21:57)
[2022-03-26] MEDS: XANAX PO SCH (21:57)
[2022-03-26] MEDS: SOLU-MEDROL 40 MG IVP SCH (22:17)
[2022-03-26 22:50] VITALS: BMI 24.1
[2022-03-26] MEDS: DUONEB NEB SCH (23:15)
--- NOTE | 2022-03-27 04:45 | PCM ---
Chief Complaint Chief Complaint: im coughing up some awful yellow stuff and im sob History of Present Illness History of Present Illness: This is a pleasant 61 yr old lady with hx of copd, chronic resp failure on home oxygen, and recently dx wtih lung cancer and completed a cycle of chemotherapy "to take a break" who presented with 3-4 days of cough, sob productive of yellow sputum without hemoptysis or fever. Review of Systems Constitutional: Reports Fatigue Eyes: Reports No symptoms Ears: Reports No symptoms Nose: Reports No symptoms Throat: Reports No symptoms Mouth: Reports No symptoms Respiratory: Reports Cough, Shortness of air and Wheeze Cardiovascular: Reports No symptoms Gastrointestinal: Reports No symptoms Genitourinary: Reports No symptoms Neurological: Reports No symptoms Musculoskeletal: Reports No symptoms Skin: Reports No symptoms Immunology: Reports No symptoms Hematology: Reports No symptoms Endocrine: Reports No symptoms Psychiatric: Reports No symptoms Habits: Reports Tobacco use Allergies Allergies Allergy/AdvReac Type Severity Reaction Status Date / Time No Known Allergies Allergy Verified 03/27/22 04:41 [facility], [facility] Medical History Acute anxiety Anemia Asthma Chronic obstructive pulmonary disease COVID-19 Defect of endplate of vertebra Depression Fatigue Folliculitis Gall bladder disease Hyperlipidemia Hypertension Hypertension (01/15/14) Hypokalemia Hypothyroidism Influenza vaccination administered at current visit Lung cancer Nausea and vomiting Need for vaccination against Streptococcus pneumoniae using pneumococcal conjugate vaccine 13 On antineoplastic chemotherapy Osteoporosis Stage 4 lung cancer Surgical History gall bladder History of tubal ligation Normal esophagogastroduodenoscopy (EGD) Status post appendectomy Status post cholecystectomy (04/27/16) Family History FATHER Diabetes No known health problems Mother Diabetes Other Emphysema lung Social History Smoking and tobacco status: Former smoker Tobacco: How many years used: 17 Second hand smoke exposure: Yes Alcohol intake: former Substance use type: does not use Eliza/church: druze Special eliaz needs: No Agree to transfusion: Yes Adopted: No Caregiver/support person: Yes Household members: spouse Housing: house Lives independently: Yes Highest education level completed: 9th grade Financial difficulty paying for basics: not applicable service: No Current occupational status: unemployed Current occupational exposures/hazards: No Pets and animals: No Leisure activites: fishing History of recent travel: No Do you think of yourself as: straight/heterosexual Current gender identity: female Seatbelt use: always Helmet use: No 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 Water heater temperature set < 120 degrees: Yes Working smoke detector in home: Yes Fire extinguisher in home: Yes Carbon monoxide detector in home: No Firearms in home: Yes Firearms unloaded and locked: Yes Medications Medications: Medications Generic Name Dose Route Start Last Admin Trade Name Freq PRN Reason Stop Dose Admin Albuterol Sulfate 2 puff 03/26/22 20:44 Albuterol Sulfate (Ventolin Hfa) 18 Gm 1 Puff With Spacer IH Q6H PRN Wheezing Albuterol/Ipratropium 3 ml 03/27/22 00:00 03/26/22 23:15 Ipratropium/Albuterol Vial.Neb NEB 3 ml RTQ6H CAROLA Administration Alprazolam 0.5 mg 03/26/22 21:00 03/26/22 21:57 Alprazolam 0.5 Mg Tablet PO 0.5 mg BID CAROLA Administration Amlodipine Besylate 5 mg 03/27/22 09:00 Amlodipine Besylate 5 Mg Tablet PO DAILY CAROLA Aspirin 81 mg 03/27/22 09:00 Aspirin 81 Mg Tab.Chew PO DAILY CAROLA Benazepril HCl 10 mg 03/27/22 09:00 Benazepril Hcl 10 Mg Tablet PO DAILY CAROLA Budesonide/Formoterol Fumarate 2 puff 03/26/22 21:00 03/26/22 21:57 Budesonide/Formoterol Fumarate 160/4.5 Mcg Inhaler IH 2 puff BID CAROLA Administration Enoxaparin Sodium 40 mg 03/27/22 09:00 Enoxaparin Sodium 40 Mg/0.4 Ml Syr SUBCUT DAILY CAROLA Folic Acid 1 mg 03/27/22 09:00 Folic Acid 1 Mg Tablet PO DAILY CAROLA Heparin Sodium (Beef Lung) 30 unit 03/26/22 22:01 03/26/22 22:17 Heparin Sodium,Porcine 30 Unit/3 Ml Syringe IVF 30 unit PRN PRN Administration after medication administratio CEFEPIME 2 GM/D5W 2 gm in 50 mls @ 100 mls/hr 03/27/22 05:00 Maxipime 2 Gm/50 Ml D5w IV 03/30/22 04:59 Q12H [facility] Methylprednisolone Sodium Succinate 40 mg 03/26/22 21:00 03/26/22 22:17 Methylprednisolone Sod Succ/Pf 40 Mg/Ml Vial IVP 40 mg Q12HR CAROLA Administration Metoprolol Succinate 25 mg 03/26/22 21:00 03/26/22 21:57 Metoprolol Succinate 25 Mg Tab.Er.24h PO 25 mg BID CAROLA Administration Non-Formulary Medication 1 applic 03/27/22 09:00 Mupirocin Calcium TP DAILY CAROLA Omeprazole 40 mg 03/27/22 09:00 Omeprazole 20 Mg Capsule.Dr PO DAILY CAROLA Oxycodone/Acetaminophen 1 tab 03/26/22 20:44 03/26/22 21:26 Oxycodone/Acetaminophen 10/325 Mg Tablet PO 1 tab Q8HR PRN Administration MODERATE PAIN Pravastatin Sodium 40 mg 03/27/22 09:00 Pravastatin Sodium 40 Mg Tablet PO DAILY CAROLA Sodium Chloride 1 syr 03/26/22 14:09 03/26/22 22:17 0.9% Sodium Chloride 10 Ml Disp.Syrin IVF 1 syr PRN PRN Administration To flush IV Venlafaxine HCl 75 mg 03/26/22 21:00 03/26/22 21:56 Venlafaxine Hcl 75 Mg Cap.Er.24h PO 75 mg BEDTIME CAROLA Administration Body Composition Height: 5 ft 4 in Weight: 140 lb 8 oz Body Mass Index (BMI): 24.1 Vital Signs Temperature: 98.5 F Pulse Rate: 109 Respiratory Rate: 20 Blood Pressure: 164/88 O2 Sat by Pulse Oximetry: 95 Physical Examination Appearance: Reports Ill-appearing Ill-appearing: Mild Pain Distress: None Eyes: Reports MILLA, EOMI and Conjunctiva clear ENT: Reports Ears normal, Nose normal and Oropharynx normal Neck: Supple Respiratory: Reports Airway patent, Breath sounds equal, Respirations nonlabored and Rhonchi Cardiovascular: Reports RRR, Pulses normal, No rub and No murmur GI/: Reports Soft, Nontender, No masses and Bowel sounds normal Musculoskeletal: Reports Normal strength, ROM intact, No edema and No calf tenderness Skin: Reports Warm, Dry and Normal color Neurological: Reports Sensation intact, Motor intact, Reflexes intact, Cranial nerves intact, Alert and Oriented Psychiatric: Reports Affect appropriate and Mood appropriate Lab/Tests/Diagnostic Imaging Lab/Tests/Diagnostic Imaging: Lab Review 03/26/22 03/26/22 03/26/22 14:27 14:28 14:28 WBC 10.40 H RBC 3.69 L Hgb 11.3 L Hct 36.8 L MCV 99.7 H MCH 30.6 MCHC 30.7 L RDW Coeff of Taylor 12.9 Plt Count 311 Immature Gran % (Auto) 0.2 Neut % (Auto) 65.7 Lymph % (Auto) 22.6 [place] % (Auto) 6.0 Eos % (Auto) 5.0 Baso % (Auto) 0.5 Neut # (Auto) 6.8 Lymph # (Auto) 2.4 [place] # (Auto) 0.6 Eos # (Auto) 0.5 Baso # (Auto) 0.1 Immature Gran # (Auto) 0.0 Sodium 138.6 Potassium 4.08 Chloride 104.0 Carbon Dioxide 29.7 Anion Gap 8.98 BUN 16.5 Creatinine 0.81 Estimated GFR (MDRD) 72.00 BUN/Creatinine Ratio 20.37 Glucose 103.4 Lactic Acid Calcium 9.09 Total Bilirubin 0.32 AST 38.6 H ALT 30.1 Alkaline Phosphatase 84.5 Troponin I < 0.012 Total Protein 7.32 Albumin 4.22 Globulin 3.10 Albumin/Globulin Ratio 1.36 Procalcitonin D-Dimer SARS CoV-2 RNA Rapid COLLEEN Negative 03/26/22 03/26/22 03/26/22 14:28 14:28 14:28 WBC RBC Hgb Hct MCV MCH MCHC RDW Coeff of Taylor Plt Count Immature Gran % (Auto) Neut % (Auto) Lymph % (Auto) [place] % (Auto) Eos % (Auto) Baso % (Auto) Neut # (Auto) Lymph # (Auto) [place] # (Auto) Eos # (Auto) Baso # (Auto) Immature Gran # (Auto) Sodium Potassium Chloride Carbon Dioxide Anion Gap BUN Creatinine Estimated GFR (MDRD) BUN/Creatinine Ratio Glucose Lactic Acid 0.57 L Calcium Total Bilirubin AST ALT Alkaline Phosphatase Troponin I Total Protein Albumin Globulin Albumin/Globulin Ratio Procalcitonin 0.17 H D-Dimer 721.35 H SARS CoV-2 RNA Rapid COLLEEN Orders Category Date Time Status ADMIT PATIENT INPATIENT .TO MEDSURG (MONITORED BED) ADMISSION 03/26/22 20:40 Active EKG-(ED ONLY) Stat CARDIO 03/26/22 14:09 Completed METERED DOSE INHALATION Routine CARDIO 03/26/22 20:44 Ordered NEBULIZER TREATMENT Routine CARDIO 03/26/22 20:49 Ordered NEBULIZER TREATMENT Stat CARDIO 03/26/22 14:09 Completed NEBULIZER TREATMENT Stat CARDIO 03/26/22 17:54 Completed OXYGEN Routine CARDIO 03/26/22 20:42 Ordered ACTIVITY .Up With Assistance CARE 03/26/22 20:41 Active INTAKE & OUTPUT Q8HR CARE 03/26/22 20:41 Active IP: INSERT SALINE LOCK ONCE CARE 03/26/22 20:41 Active NPO REMINDER: IMAGING ONCE CARE 03/26/22 18:46 Completed TELEMETRY MONITORING TELE CARE 03/26/22 20:40 Active VITAL SIGNS Q8HR CARE 03/26/22 20:41 Active REGULAR DIET DIETARY 03/26/22 Breakfast Ordered ED IV/MEDIPORT/POWERPORT .ONCE EMERGENCY 03/26/22 14:09 Active BLOOD CULTURE (ED ONLY) Stat LAB 03/26/22 14:28 Received CBC W/ AUTO DIFF DAILY@0600 LAB 03/27/22 06:00 Ordered CBC W/ AUTO DIFF DAILY@0600 LAB 03/28/22 06:00 Ordered CBC W/ AUTO DIFF Stat LAB 03/26/22 14:28 Completed CMP [COMPREHENSIVE METABOLIC PANEL] Stat LAB 03/26/22 14:28 Completed COMPREHENSIVE METABOLIC PANEL DAILY@0600 LAB 03/27/22 06:00 Ordered COMPREHENSIVE METABOLIC PANEL DAILY@0600 LAB 03/28/22 06:00 Ordered COVID [SARS COV-2 RNA RAPID COLLEEN] Stat LAB 03/26/22 14:27 Completed D-DIMER Stat LAB 03/26/22 14:28 Completed LACTIC ACID Stat LAB 03/26/22 14:28 Completed PROCALCITONIN Stat LAB 03/26/22 14:28 Completed TROPONIN I Stat LAB 03/26/22 14:28 Completed 0.9 % Sodium Chloride [Saline Flush] MEDS 03/26/22 14:09 Active 1 syr IVF PRN PRN Albuterol Inhaler(with Spacer) [Ventolin Hfa (Per Puff- MEDS 03/26/22 20:44 Active with Spacer)] 2 puff IH Q6H PRN Albuterol Sulfate 0.083% Neb [Albuterol 0.083% Neb] MEDS 03/26/22 17:54 Discontinued 2.5 mg NEB ONCE STA Alprazolam [Xanax] MEDS 03/26/22 21:00 Active 0.5 mg PO BID Amlodipine Besylate [Norvasc] MEDS 03/27/22 09:00 Active 5 mg PO DAILY Aspirin [Aspirin Chewable] MEDS 03/27/22 09:00 Active 81 mg PO DAILY Benazepril HCl [Lotensin] MEDS 03/27/22 09:00 Active 10 mg PO DAILY Budesonide/Formoterol Fumarate [Symbicort 160-4.5 Mcg MEDS 03/26/22 21:00 Active Inhaler] 2 puff IH BID Cefepime 2 gm/D5w [Maxipime 2 gm/50 ml D5w] MEDS 03/26/22 16:28 Discontinued 2 gm in 50 ml IV ONCE Cefepime 2 gm/D5w [Maxipime 2 gm/50 ml D5w] MEDS 03/27/22 05:00 Active 2 gm in 50 ml IV Q12H Enoxaparin Sodium [Lovenox] MEDS 03/27/22 09:00 Active 40 mg SUBCUT DAILY Folic Acid MEDS 03/27/22 09:00 Active 1 mg PO DAILY Heparin Sodium,Porcine/Pf [Heparin Flush] MEDS 03/26/22 22:01 Active 30 unit IVF PRN PRN Ipratropium/Albuterol Neb [Duoneb] MEDS 03/26/22 14:09 Discontinued 3 ml NEB ONCE STA Ipratropium/Albuterol Neb [Duoneb] MEDS 03/27/22 00:00 Active 3 ml NEB RTQ6H Methylprednisolone Sod Succ/Pf [Solu-Medrol 40 mg] MEDS 03/26/22 21:00 Active 40 mg IVP Q12HR Metoprolol Succinate [Toprol Xl] MEDS 03/26/22 21:00 Active 25 mg PO BID Omeprazole [Prilosec] MEDS 03/27/22 09:00 Active 40 mg PO DAILY Oxycodone-Acetaminophen 10-325 [Percocet 10-325] MEDS 03/26/22 20:44 Active 1 tab PO Q8HR PRN Pravastatin Sodium [Pravachol] MEDS 03/27/22 09:00 Active 40 mg PO DAILY Vancomycin/Water For Inj (Peg) [Vancomycin 1.25 gm/250 MEDS 03/26/22 19:13 Discontinued ml Bag] 1.25 gm in 250 ml IV ONCE Venlafaxine HCl [Effexor Xr] MEDS 03/26/22 21:00 Active 75 mg PO BEDTIME mupirocin calcium MEDS 03/27/22 09:00 Pending 1 applic TP DAILY RESUSCITATION STATUS Routine OTHERS 03/26/22 20:[address] CHEST PE PROTOCOL Stat RADS 03/26/22 18:46 Completed CXR [CHEST, 1V AP ONLY] Stat RADS 03/26/22 14:09 Completed Medications Generic Name Dose Route Start Last Admin Trade Name Freq PRN Reason Stop Dose Admin Albuterol Sulfate 2 puff 03/26/22 20:44 Albuterol Sulfate (Ventolin Hfa) 18 Gm 1 Puff With Spacer IH Q6H PRN Wheezing Albuterol/Ipratropium 3 ml 03/27/22 00:00 03/26/22 23:15 Ipratropium/Albuterol Vial.Neb NEB 3 ml RTQ6H CAROLA Administration Alprazolam 0.5 mg 03/26/22 21:00 03/26/22 21:57 Alprazolam 0.5 Mg Tablet PO 0.5 mg BID CAROLA Administration Amlodipine Besylate 5 mg 03/27/22 09:00 Amlodipine Besylate 5 Mg Tablet PO DAILY CAROLA Aspirin 81 mg 03/27/22 09:00 Aspirin 81 Mg Tab.Chew PO DAILY CAROLA Benazepril HCl 10 mg 03/27/22 09:00 Benazepril Hcl 10 Mg Tablet PO DAILY CAROLA Budesonide/Formoterol Fumarate 2 puff 03/26/22 21:00 03/26/22 21:57 Budesonide/Formoterol Fumarate 160/4.5 Mcg Inhaler IH 2 puff BID CAROLA Administration Enoxaparin Sodium 40 mg 03/27/22 09:00 Enoxaparin Sodium 40 Mg/0.4 Ml Syr SUBCUT DAILY [facility] Folic Acid 1 mg 03/27/22 09:00 Folic Acid 1 Mg Tablet PO DAILY [facility] Heparin Sodium (Beef Lung) 30 unit 03/26/22 22:01 03/26/22 22:17 Heparin Sodium,Porcine 30 Unit/3 Ml Syringe IVF 30 unit PRN PRN Administration after medication administratio CEFEPIME 2 GM/D5W 2 gm in 50 mls @ 100 mls/hr 03/27/22 05:00 Maxipime 2 Gm/50 Ml D5w IV 03/30/22 04:59 Q12H [place] Methylprednisolone Sodium Succinate 40 mg 03/26/22 21:00 03/26/22 22:17 Methylprednisolone Sod Succ/Pf 40 Mg/Ml Vial IVP 40 mg Q12HR [place]A Administration Metoprolol Succinate 25 mg 03/26/22 21:00 03/26/22 21:57 Metoprolol Succinate 25 Mg Tab.Er.24h PO 25 mg BID CAROLA Administration Non-Formulary Medication 1 applic 03/27/22 09:00 Mupirocin Calcium TP DAILY CAROLA Omeprazole 40 mg 03/27/22 09:00 Omeprazole 20 Mg Capsule.Dr PO DAILY CAROLA Oxycodone/Acetaminophen 1 tab 03/26/22 20:44 03/26/22 21:26 Oxycodone/Acetaminophen 10/325 Mg Tablet PO 1 tab Q8HR PRN Administration MODERATE PAIN Pravastatin Sodium 40 mg 03/27/22 09:00 Pravastatin Sodium 40 Mg Tablet PO DAILY CAROLA Sodium Chloride 1 syr 03/26/22 14:09 03/26/22 22:17 0.9% Sodium Chloride 10 Ml Disp.Syrin IVF 1 syr PRN PRN Administration To flush IV Venlafaxine HCl 75 mg 03/26/22 21:00 03/26/22 21:56 Venlafaxine Hcl 75 Mg Cap.Er.24h PO 75 mg BEDTIME CAROLA Administration Discontinued Medications Generic Name Dose Route Start Last Admin Trade Name Freq PRN Reason Stop Dose Admin Albuterol Sulfate 2.5 mg 03/26/22 17:54 03/26/22 18:05 Albuterol Sulfate 0.083% Vial.Snehal PIERCE 03/26/22 17:55 2.5 mg ONCE STA Administration Albuterol/Ipratropium 3 ml 03/26/22 14:09 03/26/22 14:25 Ipratropium/Albuterol Vial.Snehal PIERCE 03/26/22 14:10 3 ml ONCE STA Administration CEFEPIME 2 GM/D5W 2 gm in 50 mls @ 100 mls/hr 03/26/22 16:28 03/26/22 16:44 Maxipime 2 Gm/50 Ml D5w IV 03/26/22 16:57 100 mls/hr ONCE ONE Administration VANCOMYCIN/WATER FOR INJ (PEG) 1.25 gm in 250 mls @ 250 mls/hr 03/26/22 19:13 03/26/22 19:34 Vancomycin 1.25 Gm/250 Ml Bag IV 03/26/22 20:12 250 mls/hr ONCE ONE Administration Assessment (1) COPD exacerbation: Status: Acute Code(s): J44.1 - Chronic obstructive pulmonary disease with (acute) exacerbation SNOMED Code(s): 583604988 (2) Shortness of breath: Status: Acute Code(s): R06.02 - Shortness of breath SNOMED Code(s): 418369979 (3) Lesion of lung: Status: Acute Code(s): R91.1 - Solitary pulmonary nodule SNOMED Code(s): 080485422 Plan Plan: will treat with iv atbnx, steroids, neb tx, dvt prophylaxis. She does have a new lung lesion which will need to be eval by her oncologist.`
[2022-03-27] MEDS: DUONEB NEB SCH ×4 (04:50→23:05)
[2022-03-27] MEDS ORDERED: MAXIPIME 2 GM/50 ML D5W 2 GM/50 ML BAG IV SCH (05:00)
[2022-03-27 05:37] LABS: BASOPHILS % (AUTO) 0.3 % (0.0-3.0); HEMATOCRIT 36.3 % (37.0-47.0); HEMOGLOBIN 11.4 g/dl (12.0-16.0); IMMATURE GRANULOCYTE % (AUTO) 0.3 % (0.0-5.0); LYMPHOCYTES # (AUTO) 2.1 K/uL (0.60-3.4); LYMPHOCYTES % (AUTO) 29.2 (10.0-50.0); MEAN CORPUSCULAR HGB CONC 31.4 (31.8-35.4); MEAN CORPUSCULAR VOLUME 98.6 fl (81.0-99.0); MONOCYTES # (AUTO) 0.1 K/uL (0.4-2.0); MONOCYTES % (AUTO) 1.1 (0-10); NEUTROPHILS % (AUTO) 69.1 % (42.2-75.2); PLATELET COUNT 317 10^3/uL (140-440); RED BLOOD COUNT 3.68 10^6/ul (4.20-5.40); WHITE BLOOD COUNT 7.26 K/ul (4.6-10.2)
[2022-03-27 05:48] LABS: ALANINE AMINOTRANSFERASE 31.2 U/L (0-35); ALBUMIN 4.32 g/dL (3.5-5.0); ALKALINE PHOSPHATASE 87.4 U/L (53-141); ASPARTATE AMINO TRANSFERASE 42.7 U/L (14-36); BILIRUBIN,TOTAL 0.37 mg/dL (0.2-1.3); BLOOD UREA NITROGEN 14.7 mg/dL (7-17); CALCIUM 9.28 mg/dL (8.4-10.2); CARBON DIOXIDE 26.1 mmol/L (22-30.0); CHLORIDE 104.7 mmol/L (98-107); CREATININE 0.76 mg/dL (0.60-1.30); GLUCOSE 160.6 mg/dL (74-106); POTASSIUM 3.82 mmol/L (3.5-5.1); TOTAL PROTEIN 7.56 g/dL (6.3-8.2)
[2022-03-27] MEDS: PRILOSEC PO SCH (08:38)
[2022-03-27] MEDS: TOPROL XL PO SCH ×2 (08:38→20:30)
[2022-03-27] MEDS: PRAVACHOL PO SCH (08:39)
[2022-03-27] MEDS: LOVENOX SUBCUT SCH (08:39)
[2022-03-27] MEDS: XANAX PO SCH ×2 (08:39→20:30)
[2022-03-27] MEDS: NORVASC PO SCH (08:39)
[2022-03-27] MEDS: FOLIC ACID PO SCH (08:39)
[2022-03-27] MEDS: LOTENSIN PO SCH (08:39)
[2022-03-27] MEDS: SYMBICORT 160-4.5 MCG INHALER IH SCH ×2 (08:40→21:15)
[2022-03-27] MEDS: SOLU-MEDROL 40 MG IVP SCH (08:45)
[2022-03-27] MEDS ORDERED: TOPROL XL PO SCH (09:00)
[2022-03-27] MEDS ORDERED: ASPIRIN CHEWABLE PO SCH (09:00)
[2022-03-27] MEDS ORDERED: TOPROL XL PO ONE (09:00)
[2022-03-27] MEDS: FLORASTOR PO SCH ×2 (10:44→20:30)
--- NOTE | 2022-03-27 12:11 | PCM.PROG ---
Date Seen by Provider: 03/27/22 Time Seen by Provider: 12:11 Subjective: Breathing better . She is upset over the finding on CT of a new pulmonary nodule. She developed a panic attack and was fiven 0.5 mg lorazepam IV . Her xanax was increased to 1 mg po bid. Discussed further vancomycin with our pharmacist . Pt doing better and had received one dose yesterday while awaiting CT PE study. With no definitive pneumonia the vancomycin is not continued along with clinical improvement. Objective: Vitals: T=97.0 F, P=102, R=20, IL=649/79, SPO2=98 HEENT: [no icterus , speech normal ] Neck: [supple] Lungs: [improved aeration , less rhonhi and minimal wheeze] CVS: [no chest pain or palpitations ] Abdomen: [soft / bs present ] Extremities: [no edema] Neurological: [alert oriented times three , anxiety over new RUL pulmonary nodule finding 1.6x1.1] Skin: [no rash] Lab/Tests/Diagnostic Imaging: [wbc 7.76 / gluc 160 ] (1) COPD exacerbation: Status: Acute Code(s): J44.1 - Chronic obstructive pulmonary disease with (acute) exacerbation SNOMED Code(s): 973563729 (2) Shortness of breath: Status: Acute Code(s): R06.02 - Shortness of breath SNOMED Code(s): 327928802 (3) Lesion of lung: Status: Acute Code(s): R91.1 - Solitary pulmonary nodule SNOMED Code(s): 355276462 Plan: 1.For DVT - lovenox 2.For GI - omeprazole 3.For COPD - reduce IV solumedrol from 40mgIV bid to 60 mg daily am for starting once am daily taper 4.For New pulmonary nodule -pt will need to schedule follow up at [facility] for consideration of PET Scan 5.Blood culture prelim neg - consider de-escalation to oral antibiotics 6.For anxiety - increase xanax to 1.mg po bid, will need adjustment of antidepressant / anxiolytic to avoid use of higher benzodiazepine 7.Elevated BS - A1C neg, elevated BG likely from steroid. Started low dose regular SS insulin, accucheck, alredy on consistent carb diet
[2022-03-27] MEDS ORDERED: ATIVAN IVP STA (12:31)
[2022-03-27] MEDS ORDERED: HUMULIN R SUBCUT PRN (12:32)
[2022-03-27] MEDS ORDERED: ATIVAN 1 ML ONE (12:36)
[2022-03-27] MEDS: MAXIPIME 2 GM/50 ML D5W 2 GM/50 ML BAG IV SCH ×2 (12:42→20:29)
[2022-03-27] MEDS ORDERED: SOLU-MEDROL 125 MG IVP ONE (19:35)
[2022-03-27] MEDS ORDERED: SOLU-CORTEF 100 MG IVP ONE (20:00)
[2022-03-27] MEDS: EFFEXOR XR PO SCH (20:30)
[2022-03-27] MEDS: PERCOCET 10-325 PO PRN (21:25)
[2022-03-28] MEDS: DUONEB NEB SCH ×4 (04:50→23:15)
[2022-03-28] MEDS: MAXIPIME 2 GM/50 ML D5W 2 GM/50 ML BAG IV SCH ×3 (05:20→20:52)
[2022-03-28 05:38] LABS: BASOPHILS % (AUTO) 0.3 % (0.0-3.0); HEMATOCRIT 34.8 % (37.0-47.0); HEMOGLOBIN 10.8 g/dl (12.0-16.0); IMMATURE GRANULOCYTE % (AUTO) 0.3 % (0.0-5.0); LYMPHOCYTES # (AUTO) 1.9 K/uL (0.60-3.4); LYMPHOCYTES % (AUTO) 21.4 (10.0-50.0); MEAN CORPUSCULAR HEMOGLOBIN 30.5 pg (27.0-31.0); MEAN CORPUSCULAR VOLUME 98.3 fl (81.0-99.0); MONOCYTES # (AUTO) 0.6 K/uL (0.4-2.0); MONOCYTES % (AUTO) 6.4 (0-10); NEUTROPHILS # (AUTO) 6.5 K/ul (2.0-6.9); NEUTROPHILS % (AUTO) 71.6 % (42.2-75.2); PLATELET COUNT 339 10^3/uL (140-440); RDW COEFFICIENT OF VARIATION 12.9 % (11.6-14.8); RED BLOOD COUNT 3.54 10^6/ul (4.20-5.40); WHITE BLOOD COUNT 9.06 K/ul (4.6-10.2)
[2022-03-28] MEDS: PRILOSEC PO SCH (05:48)
[2022-03-28 05:58] LABS: ALBUMIN 4.08 g/dL (3.5-5.0); ALKALINE PHOSPHATASE 74.6 U/L (53-141); ASPARTATE AMINO TRANSFERASE 26.8 U/L (14-36); BILIRUBIN,TOTAL 0.2 mg/dL (0.2-1.3); CALCIUM 9.05 mg/dL (8.4-10.2); CARBON DIOXIDE 29.3 mmol/L (22-30.0); CHLORIDE 106.2 mmol/L (98-107); CREATININE 0.76 mg/dL (0.60-1.30); POTASSIUM 4.14 mmol/L (3.5-5.1); SODIUM 141.6 mmol/L (134.5-145); TOTAL PROTEIN 7.16 g/dL (6.3-8.2)
[2022-03-28] MEDS: PERCOCET 10-325 PO PRN ×2 (08:45→20:53)
[2022-03-28] MEDS: XANAX PO SCH ×2 (08:47→20:52)
[2022-03-28] MEDS: SOLU-CORTEF 100 MG IVP SCH (08:58)
[2022-03-28] MEDS: LOVENOX SUBCUT SCH (09:03)
[2022-03-28] MEDS: PRAVACHOL PO SCH (09:14)
[2022-03-28] MEDS: FOLIC ACID PO SCH (09:15)
[2022-03-28] MEDS: TOPROL XL PO SCH ×2 (09:15→20:52)
[2022-03-28] MEDS: ASPIRIN CHEWABLE PO SCH (09:16)
[2022-03-28] MEDS: LOTENSIN PO SCH (09:16)
[2022-03-28] MEDS: FLORASTOR PO SCH ×2 (09:16→20:53)
[2022-03-28] MEDS: SYMBICORT 160-4.5 MCG INHALER IH SCH ×2 (09:17→20:54)
[2022-03-28] MEDS: NORVASC PO SCH (09:17)
--- NOTE | 2022-03-28 09:20 | PCM.PROG ---
Date Seen by Provider: 03/28/22 Time Seen by Provider: 09:00 Subjective: Patient reports that her breathing is much improved. She is weak and has not ambulated much yet. Tolerating diet. Objective: Vitals: T=97.4 F, P=88, R=18, CF=314/82, SPO2=97 Breathing without distress. Alert and in NAD. HEENT: [] Oral mucosa moist. Neck: [] Supple. No JVD. Lungs: [] Breath tone diminished bilaterally though equal. Scattered expiratory wheezes. CVS: [] RRR Abdomen: [] Extremities: [] No edema. Neurological: [] Skin: [] Lab/Tests/Diagnostic Imaging: [] (1) COPD exacerbation: Status: Acute Code(s): J44.1 - Chronic obstructive pulmonary disease with (acute) exacerbation SNOMED Code(s): 316415146 Assessment: Pulmonary function improving. (2) Shortness of breath: Status: Acute Code(s): R06.02 - Shortness of breath SNOMED Code(s): 448889950 (3) Lesion of lung: Status: Acute Code(s): R91.1 - Solitary pulmonary nodule SNOMED Code(s): 792483267 Plan: Increase activity. Continue same care. Hopefully, home tomorrow.
[2022-03-28] MEDS: EFFEXOR XR PO SCH (20:52)
[2022-03-29] MEDS: DUONEB NEB SCH (04:45)
[2022-03-29 05:08] VITALS: BP 153/86; TEMP 96.9
[2022-03-29] MEDS: MAXIPIME 2 GM/50 ML D5W 2 GM/50 ML BAG IV SCH (05:09)
[2022-03-29] MEDS: PERCOCET 10-325 PO PRN (05:09)
[2022-03-29 05:35] LABS: BASOPHILS % (AUTO) 0.3 % (0.0-3.0); EOSINOPHILS # (AUTO) 0.2 K/ul (0.0-0.7); EOSINOPHILS % (AUTO) 3.7 % (0.0-7.0); HEMATOCRIT 34.6 % (37.0-47.0); HEMOGLOBIN 10.9 g/dl (12.0-16.0); IMMATURE GRANULOCYTE % (AUTO) 0.3 % (0.0-5.0); LYMPHOCYTES % (AUTO) 31.4 (10.0-50.0); MEAN CORPUSCULAR HEMOGLOBIN 31.4 pg (27.0-31.0); MEAN CORPUSCULAR HGB CONC 31.5 (31.8-35.4); MEAN CORPUSCULAR VOLUME 99.7 fl (81.0-99.0); MONOCYTES # (AUTO) 0.6 K/uL (0.4-2.0); MONOCYTES % (AUTO) 9.5 (0-10); NEUTROPHILS # (AUTO) 3.4 K/ul (2.0-6.9); NEUTROPHILS % (AUTO) 54.8 % (42.2-75.2); PLATELET COUNT 325 10^3/uL (140-440); RDW COEFFICIENT OF VARIATION 13.2 % (11.6-14.8); RED BLOOD COUNT 3.47 10^6/ul (4.20-5.40); WHITE BLOOD COUNT 6.21 K/ul (4.6-10.2)
[2022-03-29 05:56] LABS: ALBUMIN 3.87 g/dL (3.5-5.0); ALKALINE PHOSPHATASE 74.9 U/L (53-141); ASPARTATE AMINO TRANSFERASE 31.6 U/L (14-36); BILIRUBIN,TOTAL 0.3 mg/dL (0.2-1.3); BLOOD UREA NITROGEN 21.3 mg/dL (7-17); CALCIUM 8.92 mg/dL (8.4-10.2); CARBON DIOXIDE 29.3 mmol/L (22-30.0); CHLORIDE 104.6 mmol/L (98-107); CREATININE 0.68 mg/dL (0.60-1.30); GLUCOSE 99.2 mg/dL (74-106); POTASSIUM 3.66 mmol/L (3.5-5.1); SODIUM 138.9 mmol/L (134.5-145); TOTAL PROTEIN 6.93 g/dL (6.3-8.2)
[2022-03-29] MEDS: PRILOSEC PO SCH (05:57)
--- NOTE | 2022-03-29 08:59 | PCM.PROG ---
Date Seen by Provider: 03/29/22 Time Seen by Provider: 07:30 Subjective: Patient states she is breathing better back to her baseline Respiratory status and oxygen needs. Objective: Vitals: T=96.9 F, P=94, R=19, FK=976/86, SPO2=98 HEENT: [Mucus membranes moist ] Neck: [no JVD] Lungs: [Slightly diminished but clinically clear bilaterally ] CVS: [Regular ] CHEST: port-a-cath accessed dresssing in place Abdomen: [unremarkable] Extremities: [ No edema] Neurological: [Awake and Alert in good spirits. No focal defictes. ] Skin: [No rash ] Lab/Tests/Diagnostic Imaging: [ Laboratory Results - last 24 hr 03/29/22 03/29/22 05:15 05:15 WBC 6.21 RBC 3.47 L Hgb 10.9 L Hct 34.6 L MCV 99.7 H MCH 31.4 H MCHC 31.5 L RDW Coeff of Taylor 13.2 Plt Count 325 Immature Gran % (Auto) 0.3 Neut % (Auto) 54.8 Lymph % (Auto) 31.4 [place] % (Auto) 9.5 Eos % (Auto) 3.7 Baso % (Auto) 0.3 Neut # (Auto) 3.4 Lymph # (Auto) 2.0 [place] # (Auto) 0.6 Eos # (Auto) 0.2 Baso # (Auto) 0.0 Immature Gran # (Auto) 0.0 Sodium 138.9 Potassium 3.66 Chloride 104.6 Carbon Dioxide 29.3 Anion Gap 8.66 BUN 21.3 H Creatinine 0.68 Estimated GFR (MDRD) 88.00 BUN/Creatinine Ratio 31.32 Glucose 99.2 Calcium 8.92 Total Bilirubin 0.30 AST 31.6 ALT 26.0 Alkaline Phosphatase 74.9 Total Protein 6.93 Albumin 3.87 Globulin 3.06 Albumin/Globulin Ratio 1.26 ] (1) COPD exacerbation: Status: Acute Code(s): J44.1 - Chronic obstructive pulmonary disease with (acute) exacerbation SNOMED Code(s): 605699627 Assessment: has been on Cefepime and completed 8 doses Symtoms improved. (2) Shortness of breath: Status: Acute Code(s): R06.02 - Shortness of breath SNOMED Code(s): 805527875 Assessment: Improvved (3) Lesion of lung: Status: Acute Code(s): R91.1 - Solitary pulmonary nodule SNOMED Code(s): 387060594 Assessment: Followed by oncology Plan: Discharge hormone today on steroids
--- NOTE | 2022-03-29 09:05 | PCM.DC ---
Final Diagnosis: COPD exacerbation. Physical Exam Appearance: Well-appearing Pain Distress: None Eyes: Conjunctiva clear (1) COPD exacerbation: Status: Acute Code(s): J44.1 - Chronic obstructive pulmonary disease with (acute) exacerbation SNOMED Code(s): 778317450 (2) Shortness of breath: Status: Acute Code(s): R06.02 - Shortness of breath SNOMED Code(s): 618626808 (3) Lesion of lung: Status: Acute Code(s): R91.1 - Solitary pulmonary nodule SNOMED Code(s): 256801045 Reason for Hospitalization: COPD exacerbation Prognosis/Condition at Discharge: good Medications at Discharge: Prednisone 20mg Daily for 5 days Follow-ups: With PCP in 10-day Discharge Disposition: Home Hospital Course: was given Steroids, Breathing, treatments and IV antibiotics. Plan: Follow-up with your PCP in 1 week. Return to ED if worse or concerned.
[2022-03-29] MEDS: LOVENOX SUBCUT SCH (09:36)
[2022-03-29] MEDS: LOTENSIN PO SCH (09:37)
[2022-03-29] MEDS: NORVASC PO SCH (09:37)
[2022-03-29] MEDS: ASPIRIN CHEWABLE PO SCH (09:37)
[2022-03-29] MEDS: XANAX PO SCH (09:37)
[2022-03-29] MEDS: PRAVACHOL PO SCH (09:38)
[2022-03-29] MEDS: TOPROL XL PO SCH (09:38)
[2022-03-29] MEDS: FLORASTOR PO SCH (09:38)
[2022-03-29] MEDS: FOLIC ACID PO SCH (09:38)
[2022-03-29] MEDS: SYMBICORT 160-4.5 MCG INHALER IH SCH (09:39)
[2022-03-29] MEDS: SOLU-CORTEF 100 MG IVP SCH (10:06)
== END 2022-03-29 10:35 | disposition home or self-care (01) ==
LOC: ED 12:55 → MEDSURG A 20:49 → INTOOBSV 20:49 → MEDSURG A 21:40
PROVIDERS: ADMIT Family Medicine; ATTEND Internal Medicine Geriatric Medicine
DX: Z99.81 Dependence on supplemental oxygen; J44.1 Chronic obstructive pulmonary disease with (acute) exacerbation; I10 Essential (primary) hypertension; Z79.4 Long term (current) use of insulin; Z85.118 Personal history of other malignant neoplasm of bronchus and lung; Z79.82 Long term (current) use of aspirin; Z20.822 Contact with and (suspected) exposure to COVID-19; Z79.899 Other long term (current) drug therapy; R91.1 Solitary pulmonary nodule; E03.9 Hypothyroidism, unspecified; Z51.81 Encounter for therapeutic drug level monitoring; R06.02 Shortness of breath; E78.5 Hyperlipidemia, unspecified